=== PATIENT | female | born 1935 | race Caucasian/White ===

== ENCOUNTER 2016-10-25 16:38 | Emergency (ER) | payer MEDICARE, OTHER ==
[~2016-10-25] VITALS: Ht 160 cm; Wt 44.9 kg
--- NOTE | 2016-10-25 17:04 | ED Abdominal Pain ---
General Stated Complaint: ABDOMINAL PAIN Source of Information: Patient History of Present Illness Time Seen By Provider: 16:50 Initial Comments PT ARRIVES VIA POV FROM HOME C/O SUDDEN ONSET OF LEFT MID ABDOMINAL PAIN SOMETIME THIS MORNING OR AFTERNOON FELT FINE WHEN SHE WOKE UP AND ATE BREAKFAST AND WAS FINE. PT ALSO ATE LUNCH. PAIN RADIATES THROUGH TO BACK NO FEVER NO NAUSEA/VOMITING/DIARRHEA. HAD NORMAL BM TODAY. PT LATER ADMITS THAT SHE ALWAYS HAS TO STRAIN VERY HARD TO HAVE A BM, AND DESCRIBES ONGOING CONSTIPATION NO URINARY SYMPTOMS PT HAS HAD PANCREATITIS X 3, PT HAS ALSO HAD COLITIS PT HAD COLON RESECTION 07/2016 FOR OBSTRUCTION/TORSION PCP: DR. MARCIE RECINOS, [place] [facility] Allergies and Home Medications Allergies Coded Allergies: Penicillins (Verified Allergy, Unknown, 10/25/16) Sulfa (Sulfonamide Antibiotics) (Verified Allergy, Unknown, 10/25/16) latex (Verified Allergy, Unknown, 10/25/16) meperidine (Verified Allergy, Unknown, 10/25/16) Review of Systems Constitutional: no symptoms reported Respiratory: No Symptoms Reported Gastrointestinal: See HPI, Abdominal Pain, Denies Constipated, Denies Diarrhea , Denies Difficulty Swallowing, Denies Nausea, Denies Poor Appetite, Denies Poor Fluid Intake, Denies Rectal Bleeding, Denies Vomiting Genitourinary: No Symptoms Reported Musculoskeletal: back pain Skin: no symptoms reported Psychiatric/Neurological: No Symptoms Reported Endocrine: No Symptoms Reported Hematologic/Lymphatic: No Symptoms Reported Past Yjcolih-Lzlxzz-Borwik Hx Patient Social History Alcohol Use: Denies Use Recreational Drug Use: No Smoking Status: Never a Smoker Recent Foreign Travel: No Contact w/Someone Who Travel: No Surgeries HX Surgeries: Yes (BOWEL RESECTION 07/2016; HYST/BSO/APY) Surgeries: Abdominal, Appendectomy, Bowel Surgery, Hysterectomy, Oophorectomy, Tubal Ligation Respiratory Hx Respiratory Disorders: No Cardiovascular Hx Cardiac Disorders: Yes Cardiac Disorders: Chronic Edema/Swelling, Hypertension Neurological Hx 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 Genitourinary Hx Genitourinary Disorders: No Gastrointestinal Hx Gastrointestinal Disorders: Yes Gastrointestinal Disorders: Colitis, Gastroesophageal Reflux, Pancreatitis Musculoskeletal Hx Musculoskeletal Disorders: No Endocrine Hx Endocrine Disorders: Yes Endocrine Disorders: Diabetes, Non-Insulin dep HEENT HX ENT Disorders: No Cancer Hx Cancer: No Psychosocial Hx Psychiatric Problems: No Integumentary HX Skin/Integumentary Disorder: No Blood Transfusions Hx Blood Disorders: No Physical Exam Vital Signs VS - Last 72 Hours, by Label 10/25/16 16:50 Temp 98.0 Pulse 84 Resp 16 B/P (MAP) 193/80 Pulse Ox 98 Capillary Refill : General Appearance: WD/WN, no apparent distress, thin HEENT: PERRL/EOMI, No scleral icterus (R), No scleral icterus (L) Neck: normal inspection Respiratory: normal breath sounds, no respiratory distress, no accessory muscle use Cardiovascular: regular rate, rhythm, no murmur Gastrointestinal: abnormal bowel sounds (DECREASED), No distended, No guarding , No rebound, tenderness (MODERATE LEFT MID ABDOMINAL TENDERNESS), No hernia, No mass Extremities: no calf tenderness, normal capillary refill, pedal edema (1+ BILATERALLY) Back: no CVA tenderness 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, no motor/sensory deficits, alert, oriented x 3 Skin: normal color, warm/dry Progress/Results/Core Measures Results/Orders Lab Results Laboratory Tests Test 10/25/16 17:00 10/25/16 17:30 Range/Units White Blood Count 8.9 4.3-11.0 10^3/uL Red Blood Count 3.78 L 4.35-5.85 10^6/uL Hemoglobin 11.2 L 11.5-16.0 G/DL Hematocrit 35 35-52 % Mean Corpuscular Volume 94 80-99 FL Mean Corpuscular Hemoglobin 30 25-34 PG Mean Corpuscular Hemoglobin Concent 32 32-36 G/DL Red Cell Distribution Width 14.0 10.0-14.5 % Platelet Count 230 130-400 10^3/uL Mean Platelet Volume 11.2 H 7.4-10.4 FL Neutrophils (%) (Auto) 37 L 42-75 % Lymphocytes (%) (Auto) 37 12-44 % Monocytes (%) (Auto) 12 0-12 % Eosinophils (%) (Auto) 14 H 0-10 % Basophils (%) (Auto) 1 0-10 % Neutrophils # (Auto) 3.3 1.8-7.8 X 10^3 Lymphocytes # (Auto) 3.3 1.0-4.0 X 10^3 Monocytes # (Auto) 1.1 H 0.0-1.0 X 10^3 Eosinophils # (Auto) 1.2 H 0.0-0.3 10^3/uL Basophils # (Auto) 0.1 0.0-0.1 10^3/uL Neutrophils % (Manual) 32 % Lymphocytes % (Manual) 35 % Monocytes % (Manual) 12 % Eosinophils % (Manual) 15 % Basophils % (Manual) 1 % Band Neutrophils 1 % Reactive Lymphocytes 4 % Blood Morphology Comment NORMAL Prothrombin Time 14.2 12.2-14.7 SEC INR Comment 1.1 0.8-1.4 Activated Partial Thromboplast Time 27 24-35 SEC Sodium Level 138 135-145 MMOL/L Potassium Level 4.2 3.6-5.0 MMOL/L Chloride Level 103 98-107 MMOL/L Carbon Dioxide Level 24 21-32 MMOL/L Anion Gap 11 5-14 MMOL/L Blood Urea Nitrogen 20 H 7-18 MG/DL Creatinine 0.77 0.60-1.30 MG/DL Estimat Glomerular Filtration Rate > 60 BUN/Creatinine Ratio 26 Glucose Level 148 H 70-105 MG/DL Calcium Level 9.7 8.5-10.1 MG/DL Total Bilirubin 0.2 0.1-1.0 MG/DL Aspartate Amino Transf (AST/SGOT) 19 5-34 U/L Alanine Aminotransferase (ALT/SGPT) 23 0-55 U/L Alkaline Phosphatase 93 40-136 U/L Total Protein 6.9 6.4-8.2 GM/DL Albumin 4.3 3.2-4.5 GM/DL Amylase Level 52 25-125 U/L Lipase 34 8-78 U/L Urine Color YELLOW Urine Clarity CLEAR Urine pH 6.5 5-9 Urine Specific [place] 1.010 L 1.016-1.022 Urine Protein NEGATIVE NEGATIVE Urine Glucose (UA) NEGATIVE NEGATIVE Urine Ketones NEGATIVE NEGATIVE Urine Nitrite NEGATIVE NEGATIVE Urine Bilirubin NEGATIVE NEGATIVE Urine Urobilinogen NORMAL NORMAL MG/DL Urine Leukocyte Esterase 2+ H NEGATIVE Urine RBC (Auto) NEGATIVE NEGATIVE Urine RBC NONE /HPF Urine WBC 0-2 /HPF Urine Squamous Epithelial Cells 0-2 /HPF Urine Crystals NONE /LPF Urine Bacteria NEGATIVE /HPF Urine Casts NONE /LPF Urine Mucus NEGATIVE /LPF Urine Culture Indicated NO My Orders Orders - TRA GONZALES DO Saline Lock/Iv-Start (10/25/16 16:57) Amylase (10/25/16 16:57) Cbc With Automated Diff (10/25/16 16:57) Comprehensive Metabolic Panel (10/25/16 16:57) Lipase (10/25/16 16:57) Protime With Inr (10/25/16 16:57) Partial Thromboplastin Time (10/25/16 16:57) Ua Culture If Indicated (10/25/16 16:57) Manual Differential (10/25/16 17:00) Ct Abdomen/Pelvis W (10/25/16 17:34) Acute Abd Series (10/25/16 17:34) Saline Lock/Iv-Start (10/25/16 17:37) Ns Iv 1000 Ml (Sodium Chloride 0.9%) (10/25/16 17:37) Iohexol Injection (Omnipaque 350 Mg/Ml 1 (10/25/16 17:45) Ns (Ivpb) (Sodium Chloride 0.9% Ivpb Bag (10/25/16 17:45) Medications Given in ED Current Medications Medications Dose Ordered Sig/Pierce Route Start Time Stop Time Status Last Admin Dose Admin Iohexol 100 ml ONCE ONCE IV 10/25/16 17:45 10/25/16 17:52 DC 10/25/16 17:52 100 ML Sodium Chloride 100 ml ONCE ONCE IV 10/25/16 17:45 10/25/16 17:52 DC 10/25/16 17:52 80 ML Sodium Chloride 1,000 ml @ 0 mls/hr Q0M ONCE IV 10/25/16 17:37 10/25/16 17:38 DC 10/25/16 17:45 1,000 MLS/HR Vital Signs/I&O Vital Sign - Last 12Hours 10/25/16 16:50 Temp 98.0 Pulse 84 Resp 16 B/P (MAP) 193/80 Pulse Ox 98 Progress Note : Progress Note PAIN RESOLVED SHORTLY AFTER ARRIVAL UNEVENTFUL ER STAY Diagnostic Imaging Comments CT ABDOMEN/PELVIS--LARGE AMOUNT OF STOOL THROUGHOUT COLON AND SMALL BOWEL. THICKENING OF STOMACH WALL VS UNDERDISTENTION. PER RADIOLOGIST REPORT @ 183 Reviewed: Reviewed by Me Departure Impression Impression: Primary Impression: Constipation Additional Impression: POSSIBLE GASTRITIS Disposition: 01 HOME, SELF-CARE Condition: Improved Departure-Patient Inst. Referrals: NO,LOCAL PHYSICIAN (PCP/Family) Primary Care Physician Patient Instructions: Gastritis (DC), Constipation, Adult (DC) Add. Discharge Instructions: CLEAR LIQUIDS UNTIL YOU HAVE A LARGE BM AND YOUR STOOLS ARE LOOSE--WATER, BROTH , JELLO, GATORADE THEN YOU MAY START A HIGH FIBER DIET INCREASE YOUR DAILY WATER INTAKE TAKE MIRALAX DAILY--START WITH 1 CAPFUL IN 8 OZ WATER, EVERY 4 HOURS UNTIL YOUR STOOLS ARE LOOSE, AND THEN DECREASE TO TWICE A DAY, AND THEN DECREASE TO ONCE A DAY IF STOOLS CONTINUE TO BE LOOSE MAY USE DULCOLAX SUPPOSITORIES AND/ OR FLEET'S ENEMAS FOR BM FOLLOW UP WITH THIS WEEK FOR FURTHER CARE Scripts Ondansetron (Zofran Odt) 4 Mg Tab.rapdis 4 MG PO Q4H for Nausea/Vomiting, #10 TAB Prov: TRA GONZALES DO 10/25/16 Pantoprazole Sodium (Protonix) 40 Mg Tablet.dr 40 MG PO DAILY, #15 TAB Prov: TRA GONZALES DO 10/25/16 Hyoscyamine Sulfate (Levsin-Sl) 0.125 Mg Tab.subl 1-2 TAB SL Q4H for Abdominal Pain, #15 TAB Prov: TRA GONZALES DO 10/25/16 Dicyclomine HCl (Bentyl) 10 Mg Capsule 10 MG PO Q6H Y for ABDOMINAL PAIN, #15 CAP Prov: TRA GONZALES DO 10/25/16 TRA GONZALES DO Oct 25, 2016 17:04
[2016-10-25 17:06] LABS: BASOPHILS # (AUTO) 0.1 10^3/uL (0.0-0.1); BASOPHILS % (AUTO) 1 % (0-10); EOSINOPHILS # (AUTO) 1.2 10^3/uL (0.0-0.3); EOSINOPHILS % (AUTO) 14 % (0-10); LYMPHOCYTES # (AUTO) 3.3 X 10^3 (1.0-4.0); LYMPHOCYTES % (AUTO) 37 % (12-44); MEAN CORPUSCULAR HEMOGLOBIN 30 PG (25-34); MEAN CORPUSCULAR HGB CONC 32 G/DL (32-36); MEAN CORPUSCULAR VOLUME 94 FL (80-99); MEAN PLATELET VOLUME 11.2 FL (7.4-10.4); MONOCYTES # (AUTO) 1.1 X 10^3 (0.0-1.0); MONOCYTES % (AUTO) 12 % (0-12); NEUTROPHILS # (AUTO) 3.3 X 10^3 (1.8-7.8); NEUTROPHILS % (AUTO) 37 % (42-75); PLATELET COUNT 230 10^3/uL (130-400); RED BLOOD COUNT 3.78 10^6/uL (4.35-5.85); WHITE BLOOD COUNT 8.9 10^3/uL (4.3-11.0)
[2016-10-25 17:17] LABS: INR 1.1 (0.8-1.4); PROTHROMBIN TIME PATIENT 14.2 SEC (12.2-14.7)
[2016-10-25 17:20] LABS: BAND NEUTROPHILS 1 %; BASOPHILS % (MANUAL) 1 %; EOSINOPHILS % (MANUAL) 15 %; LYMPHOCYTES % (MANUAL) 35 %; NEUTROPHILS % (MANUAL) 32 %; REACTIVE LYMPHOCYTES 4 %
[2016-10-25 17:27] LABS: ALANINE AMINOTRANSFERASE 23 U/L (0-55); ALBUMIN 4.3 GM/DL (3.2-4.5); AMYLASE 52 U/L (25-125); ANION GAP 11 MMOL/L (5-14); ASPARTATE AMINO TRANSFERASE 19 U/L (5-34); BILIRUBIN,TOTAL 0.2 MG/DL (0.1-1.0); BLOOD UREA NITROGEN 20 MG/DL (7-18); BUN/CREATININE RATIO 26; CALCIUM 9.7 MG/DL (8.5-10.1); CARBON DIOXIDE 24 MMOL/L (21-32); CHLORIDE 103 MMOL/L (98-107); CREATININE SERUM 0.77 MG/DL (0.60-1.30); GFR ESTIMATED > 60; GLUCOSE 148 MG/DL (70-105); LIPASE 34 U/L (8-78); POTASSIUM 4.2 MMOL/L (3.6-5.0); SODIUM 138 MMOL/L (135-145); TOTAL PROTEIN 6.9 GM/DL (6.4-8.2)
[2016-10-25] MEDS ORDERED: NS IV 1000 ML 1,000 ML IV ONE (17:37)
[2016-10-25 17:39] LABS: BILIRUBIN,URINE NEGATIVE (NEGATIVE); KETONES,URINE NEGATIVE (NEGATIVE); LEUKOCYTE ESTERASE ,URINE 2+ (NEGATIVE); NITRITE,URINE NEGATIVE (NEGATIVE); PH,URINE 6.5 (5-9); PROTEIN,URINE NEGATIVE (NEGATIVE); UROBILINOGEN,URINE NORMAL (NORMAL)
[2016-10-25] MEDS ORDERED: NS 100 ML (IVPB) BAG IV ONE (17:45)
[2016-10-25] MEDS ORDERED: IOHEXOL 350 MG/ML 100 ML (OMNIPAQUE 350) VIAL IV ONE (17:45)
[2016-10-25 18:00] LABS: SQUAMOUS EPITHELIAL CELL,UR 0-2 /HPF; WBC,URINE 0-2 /HPF
--- NOTE | 2016-10-25 18:34 | Diagnostic Imaging Report ---
PROCEDURE: CT abdomen and pelvis with contrast. TECHNIQUE: Multiple contiguous axial images were obtained through the abdomen and pelvis after administration of intravenous contrast. INDICATION: Left lower quadrant abdominal pain. COMPARISON: None. FINDINGS: Lung bases are clear. The liver, gallbladder, pancreas, spleen, adrenals, kidneys and collecting systems are unremarkable. Appendectomy. Postoperative changes in the ascending colon. Hysterectomy. There is a large amount of stool throughout the colon and rectum. There may be diffuse circumferential wall thickening of the stomach, which is collapsed, limiting evaluation. Scattered arterial calcifications including a normal caliber abdominal aorta. No free intraperitoneal air or fluid. No lymphadenopathy. No evidence of bowel obstruction. Moderate degenerative changes in the visualized spine. No acute osseous findings. IMPRESSION: 1. Large amount of stool throughout the colon and rectum may represent fecal impaction with constipation. 2. There may be diffuse circumferential wall thickening of the stomach. However, the stomach is collapsed, limiting evaluation. This could be better evaluated with endoscopy. 3. Chronic and incidental findings as above. Dictated by: Dictated on workstation # [id number]
--- NOTE | 2016-10-25 18:38 | Diagnostic Imaging Report ---
EXAM: ACUTE ABD SERIES INDICATION: Left lower quadrant abdominal pain. COMPARISON: CT abdomen and pelvis with IV contrast from earlier today. FINDINGS: Normal heart size and pulmonary vascularity. No focal pulmonary opacity, pleural effusion or pneumothorax. No acute osseous findings. No free intraperitoneal air. Large amount of stool throughout the colon and rectum. Nonobstructive bowel gas pattern. IMPRESSION: Large amount of stool throughout the colon and rectum may represent a degree of constipation. Dictated by: Dictated on workstation # [id number]
[2016-10-25] MEDS ORDERED: HYOS0.1283 SL (18:46)
[2016-10-25] MEDS ORDERED: ONDA4TAB8 PO (18:46)
[2016-10-25] MEDS ORDERED: DICY10CA59 PO (18:46)
[2016-10-25] MEDS ORDERED: PANT40TA2 PO (18:46)
[2016-10-25 19:03] VITALS: BP 107/79
== END 2016-10-25 18:59 | disposition home or self-care (01) ==
LOC: ER 16:41
DX: K59.00 Constipation, unspecified (principal); I10 Essential (primary) hypertension; E11.9 Type 2 diabetes mellitus without complications; K21.9 Gastro-esophageal reflux disease without esophagitis; Z87.19 Personal history of other diseases of the digestive system; Z90.49 Acquired absence of other specified parts of digestive tract; Z90.710 Acquired absence of both cervix and uterus; Z98.51 Tubal ligation status
CPT/HCPCS: 36415; 74022; 74177; 80053; 81000; 82150; 83690; 85007; 85027; 85610; 85730; 96360

== ENCOUNTER 2017-07-19 09:21 | Emergency (ER) | payer MEDICARE, OTHER ==
[~2017-07-19] VITALS: Ht 157.5 cm; Wt 46.3 kg
[~2017-07-19 09:21] MED LIST: DICY10CA59 PO; HYOS0.1283 SL; ONDA4TAB8 PO; PANT40TA2 PO
--- NOTE | 2017-07-19 11:24 | ED Cough/URI ---
General Chief Complaint: Cough/Cold/Flu Symptoms Stated Complaint: CHEST CONGESTION Nursing Triage Note: pt states she has chest congestion and has been coughing up yellow mucous since yesterday. c/o chest pain when coughing. describes mucous as a copious amount. pt c/o dizziness. also states she has fallen several times in the last couple of months but nothing recently Source: patient Exam Limitations: no limitations History of Present Illness Date Seen by Provider: July 19, 2017 Time Seen by Provider: 11:24 Initial Comments A 2-year-old female patient presents to the emergency department complaints of chest congestion and coughing up yellow mucus since yesterday. Also reports rib pain with coughing. Does complain of dizziness with coughing spells. Patient does have a history of dizziness with frequent falls. Has not fallen for approximately [address] Rowe for chronic medical conditions. She was treated 2-3 wks ago for colitis, but states symptoms have resolved. Timing/Duration: constant, yesterday Severity/Quality: productive cough (yellow productive cough) Prior Episodes/Possible Cause: no prior episodes Modifying Factors: Worse With Coughing Allergies and Home Medications Allergies Coded Allergies: Penicillins (Verified Allergy, Unknown, 10/25/16) Sulfa (Sulfonamide Antibiotics) (Verified Allergy, Unknown, 10/25/16) latex (Verified Allergy, Unknown, 10/25/16) meperidine (Verified Allergy, Unknown, 10/25/16) Home Medications Dicyclomine HCl 10 Mg Capsule, 10 MG PO Q6H PRN for ABDOMINAL PAIN Prescribed by: TRA GONZALES on 10/25/161845 Hyoscyamine Sulfate 0.125 Mg Tab.subl, 1-2 TAB SL Q4H Prescribed by: TRA GONZALES on 10/25/161845 Ondansetron 4 Mg Tab.rapdis, 4 MG PO Q4H Prescribed by: TRA GONZALES on 10/25/161845 Pantoprazole Sodium 40 Mg Tablet.dr, 40 MG PO DAILY Prescribed by: TRA GONZALES on 10/25/161845 Patient Home Medication List Home Medication List Reviewed: Yes Review of Systems Constitutional: see HPI; No chills; dizziness (with coughing); No fever; malaise EENTM: nose congestion; No ear pain, No hoarseness, No throat pain, No throat swelling Respiratory: see HPI, cough; No dyspnea on exertion; phlegm; No short of breath , No wheezing; other (rib pain with coughing.) Cardiovascular: No chest pain, No palpitations, No syncope Gastrointestinal: no symptoms reported Genitourinary: no symptoms reported Musculoskeletal: no symptoms reported Skin: no symptoms reported Psychiatric/Neurological: No Symptoms Reported All Other Systems Reviewed Negative Unless Noted: Yes (Negative excepted noted.) Past Hzeychs-Znosev-Zcludc Hx Patient Social History Alcohol Use: Denies Use Recreational Drug Use: No Smoking Status: Never a Smoker Recent Foreign Travel: No Contact w/Someone Who Travel: No Recent Infectious Disease Expo: No Recent Hopitalizations: No Physical Abuse: No Sexual Abuse: No Past Medical History Surgeries: Yes (BOWEL RESECTION 07/2016; HYST/BSO/APY) Abdominal, Appendectomy, Bowel Surgery, Hysterectomy, Oophorectomy, Tubal Ligation Respiratory: No Cardiac: Yes Chronic Edema/Swelling, Hypertension 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 Genitourinary: No Gastrointestinal: Yes Colitis, Gastroesophageal Reflux, Pancreatitis Musculoskeletal: No Endocrine: Yes Diabetes, Non-Insulin dep Cancer: No Psychosocial: No Nursing Suicide Risk Score: 0 Integumentary: No Blood Disorders: No Family Medical History Reviewed Nursing Family Hx No Pertinent Family Hx Physical Exam Vital Signs Vital Signs - First Documented 07/19/17 09:32 Temp 97.6 Pulse 73 Resp 16 B/P (MAP) 198/77 (117) Pulse Ox 99 O2 Delivery Room Air Capillary Refill : Less Than 3 Seconds General Appearance: WD/WN, no apparent distress HEENT: PERRL/EOMI, TMs normal, pharyngeal erythema, other ((+) nasal congestion without sinus tenderness. white, fuzzy coating of the tongue.) Neck: non-tender, supple, normal inspection Respiratory: lungs clear, normal breath sounds, no respiratory distress, no accessory muscle use Cardiovascular: normal peripheral pulses, regular rate, rhythm, no edema, no murmur Gastrointestinal: normal bowel sounds, non tender, soft Extremities: no pedal edema, normal capillary refill Neurologic/Psychiatric: alert, normal mood/affect, oriented x 3 Skin: normal color, warm/dry Progress/Results/Core Measures Suspected Sepsis Recent Fever Within 48 Hours: No Infection Criteria Present: None New/Unexplained Altered Menta: No Sepsis Screen: No Definite Risk SIRS Temperature:97.6 Pulse: 73 Respiratory Rate: 16 Blood Pressure 198 /77 Mean: 117 Results/Orders Vital Signs/I&O 07/19/17 09:32 Temp 97.6 Pulse 73 Resp 16 B/P (MAP) 198/77 (117) Pulse Ox 99 O2 Delivery Room Air Capillary Refill : Less Than 3 Seconds Blood Pressure Mean: 117 Departure Communication (Admissions) Patient seen and evaluated. Plan for discharge to home. Impression Primary Impression: Upper respiratory infection Qualified Codes: J06.9 - Acute upper respiratory infection, unspecified Additional Impression: Thrush, oral Disposition: HOME, SELF-CARE Condition: Improved Departure-Patient Inst. Decision time for Depature: 11:36 Referrals: YESSI ROWE DO (PCP/Family) Primary Care Physician Patient Instructions: Bacterial Upper Respiratory Infection, Adult (DC) Add. Discharge Instructions: All discharge instructions reviewed with patient and/or family. Voiced understanding. Medications as instructed. Tylenol extra strength over-the- counter as directed for pain if needed. Ibuprofen 400-600 mg by mouth every 6- 8 hours as needed for pain. Drink plenty of fluids. Cool humidifier. You may use saline nasal spray and Afrin nasal spray [id number] as needed for nasal congestion. Mucinex [id number] for chest congestion. Follow-up with Dr. Rowe for recheck as an outpatient if no improvement in symptoms. Return to the emergency department for worsened symptoms or any other concerns. Scripts Benzonatate (Benzonatate) 200 Mg Capsule 200 MG PO Q8H PRN for COUGH, #30 CAP 0 Refills Prov: MILAGROS ROBERSON 07/19/17 Azithromycin (Zithromax) 250 Mg Tablet 250 MG PO UD, #6 TAB 0 Refills TAKE 2 TABLETS TODAY, THEN TAKE 1 TABLET DAILY FOR 4 MORE DAYS Prov: MILAGROS ROBERSON 07/19/17 Fluconazole (Diflucan) 100 Mg Tablet 100 MG PO DAILY for 7 Days, #7 TAB 0 Refills Prov: MILAGROS ROBERSON 07/19/17 MILAGROS ROBERSON July 19, 2017 11:24
[2017-07-19] MEDS ORDERED: AZIT250T PO (11:39)
[2017-07-19] MEDS ORDERED: BENZ200C51 PO (11:39)
[2017-07-19] MEDS ORDERED: FLUC100T PO (11:39)
[2017-07-19 11:44] VITALS: BP 171/68
== END 2017-07-19 11:44 | disposition home or self-care (01) ==
LOC: EDUNIT# 09:21 → ER 09:22
DX: J06.9 Acute upper respiratory infection, unspecified (principal); B37.0 Candidal stomatitis; E11.9 Type 2 diabetes mellitus without complications; K21.9 Gastro-esophageal reflux disease without esophagitis; R60.0 Localized edema; I10 Essential (primary) hypertension; Z90.722 Acquired absence of ovaries, bilateral; Z90.710 Acquired absence of both cervix and uterus; Z90.49 Acquired absence of other specified parts of digestive tract; Z98.51 Tubal ligation status; Z87.19 Personal history of other diseases of the digestive system; Z88.0 Allergy status to penicillin; Z88.2 Allergy status to sulfonamides; Z88.6 Allergy status to analgesic agent; Z91.040 Latex allergy status
CPT/HCPCS: 99282

== ENCOUNTER 2017-10-02 15:48 | Emergency (ER) | payer MEDICARE, OTHER ==
[~2017-10-02] VITALS: Ht 157.5 cm; Wt 47.6 kg
[~2017-10-02 15:48] MED LIST changes: +AZIT250T PO; +BENZ200C51 PO; +FLUC100T PO
[2017-10-02 16:31] LABS: BASOPHILS # (AUTO) 0.1 10^3/uL (0.0-0.1); BASOPHILS % (AUTO) 1 % (0-10); EOSINOPHILS % (AUTO) 0 % (0-10); HEMATOCRIT 28 % (35-52); HEMOGLOBIN 8.6 G/DL (11.5-16.0); LYMPHOCYTES # (AUTO) 2.4 X 10^3 (1.0-4.0); LYMPHOCYTES % (AUTO) 20 % (12-44); MEAN CORPUSCULAR HEMOGLOBIN 23 PG (25-34); MEAN CORPUSCULAR HGB CONC 31 G/DL (32-36); MEAN CORPUSCULAR VOLUME 75 FL (80-99); MONOCYTES # (AUTO) 1.3 X 10^3 (0.0-1.0); MONOCYTES % (AUTO) 10 % (0-12); NEUTROPHILS # (AUTO) 8.6 X 10^3 (1.8-7.8); NEUTROPHILS % (AUTO) 69 % (42-75); PLATELET COUNT 299 10^3/uL (130-400); RED BLOOD COUNT 3.67 10^6/uL (4.35-5.85); RED CELL DISTRIBUTION WIDTH 16.7 % (10.0-14.5); WHITE BLOOD COUNT 12.4 10^3/uL (4.3-11.0)
[2017-10-02] MEDS ORDERED: OMEP20CA12 PO (16:38)
[2017-10-02] MEDS ORDERED: ISOS30TA3 (16:38)
[2017-10-02] MEDS ORDERED: METF500T5 (16:38)
[2017-10-02] MEDS ORDERED: APIX2.5T (16:38)
[2017-10-02] MEDS ORDERED: DIGO125T18 (16:38)
[2017-10-02] MEDS ORDERED: BUDE3CAP5 (16:38)
[2017-10-02] MEDS ORDERED: ACYC800T (16:38)
[2017-10-02] MEDS ORDERED: ACAR100T2 (16:38)
[2017-10-02] MEDS ORDERED: ALLO100T (16:38)
[2017-10-02] MEDS ORDERED: NIFE60TA74 (16:38)
[2017-10-02] MEDS ORDERED: GABA-486 (16:38)
[2017-10-02 16:50] LABS: ALANINE AMINOTRANSFERASE 29 U/L (0-55); ALBUMIN 4.8 GM/DL (3.2-4.5); ALKALINE PHOSPHATASE 67 U/L (40-136); BILIRUBIN,TOTAL 0.3 MG/DL (0.1-1.0); BUN/CREATININE RATIO 21; CALCIUM 9.4 MG/DL (8.5-10.1); CARBON DIOXIDE 20 MMOL/L (21-32); CHLORIDE 103 MMOL/L (98-107); CREATINE KINASE 83 U/L (29-168); GFR ESTIMATED > 60; GLUCOSE 175 MG/DL (70-105); MAGNESIUM 1.9 MG/DL (1.8-2.4); POTASSIUM 4.2 MMOL/L (3.6-5.0); SODIUM 136 MMOL/L (135-145); TOTAL PROTEIN 7.4 GM/DL (6.4-8.2)
[2017-10-02 16:57] LABS: FIBRIN DEGRADATION PRODUCTS 0.3 UG/ML (0.00-0.49); INR 1.1 (0.8-1.4)
[2017-10-02 17:10] LABS: CREATINE KINASE MB 2.9 NG/ML (<6.6); MYOGLOBIN SERUM 44.3 NG/ML (10.0-92.0); TSH (THYROID ANALYZER) 2.08 UIU/ML (0.35-4.94)
--- NOTE | 2017-10-02 17:21 | ED General ---
General Chief Complaint: General Problems/Pain Stated Complaint: FEET SWELLING SENT FROM URGENT CARE Nursing Triage Note: PT WAS SENT TO ER BY [facility] WITH COMPLAINT OF BILAT ANKLE/LEG SWELLING. PT STATES SHE HAS HAD THIS FOR SIX WEEKS AND HAS SEEN HER PCP. PT STATES SHE ALSO FEELS SOB AFTER EXEERTION. Nursing Sepsis Screen: No Definite Risk History of Present Illness Date Seen by Provider: Oct 02, 2017 Time Seen by Provider: 17:00 Initial Comments Patient is an 82-year-old female who presents to the emergency room with complaints of bilateral lower extremity swelling and mild shortness of breath with exertion for the past 6 weeks. Denies chest pain, nausea, vomiting, abdominal pain. Timing/Duration: Other (6 weeks) Modifying Factors: improves with Movement Associated Systoms: No Chest Pain, No Fever/Chills, No Headaches, No Loss of Appetite, No Nausea/Vomiting, No Seizure; Shortness of Air; No Syncope, No Weakness Allergies and Home Medications Allergies Coded Allergies: Penicillins (Verified Allergy, Unknown, 10/25/16) Sulfa (Sulfonamide Antibiotics) (Verified Allergy, Unknown, 10/25/16) latex (Verified Allergy, Unknown, 10/25/16) meperidine (Verified Allergy, Unknown, 10/25/16) Home Medications Furosemide 20 Mg Tablet, 20 MG PO DAILY Prescribed by: AIMEE EDMONDSON on 10/02/171811 Patient Home Medication List Home Medication List Reviewed: Yes Review of Systems Constitutional: see HPI; No chills, No diaphoresis, No dizziness, No fever EENTM: see HPI; No blurred vision, No double vision, No eye pain, No tearing Respiratory: see HPI; No cough; dyspnea on exertion; No hemoptysis, No orthopnea, No phlegm; short of breath; No stridor, No wheezing Cardiovascular: see HPI; No chest pain; edema (bilateral lower extremity edema) ; No Hx of Intervention, No palpitations, No syncope, No vascular heart diseas Gastrointestinal: see HPI; No abdominal pain, No constipation, No diarrhea, No dysphagia Genitourinary: see HPI; No decreased output, No discharge, No dysuria, No frequency Musculoskeletal: see HPI; No back pain, No gout, No joint pain, No joint swelling, No muscle pain Skin: see HPI; No change in color, No change in hair/nails, No dryness Psychiatric/Neurological: See HPI; Denies Anxiety, Denies Depressed, Denies Headache Hematologic/Lymphatic: See HPI; Denies Anemia, Denies Blood Clots Immunological/Allergic: see HPI; denies food allergy, denies grass allergy All Other Systems Reviewed Negative Unless Noted: Yes Past Qguhkos-Ptveaj-Jojwmw Hx Past Med/Social Hx: Reviewed Nursing Past Med/Soc Hx Patient Social History Alcohol Use: Denies Use Recreational Drug Use: No Smoking Status: Never a Smoker Recent Foreign Travel: No Contact w/Someone Who Travel: No Recent Infectious Disease Expo: No Recent Hopitalizations: No Immunizations Up To Date Tetanus Booster (TDap): Unknown PED Vaccines UTD: Yes Past Medical History Surgeries: Yes (BOWEL RESECTION 07/2016; HYST/BSO/APY) Abdominal, Appendectomy, Bowel Surgery, Hysterectomy, Oophorectomy, Tubal Ligation Respiratory: No Cardiac: Yes Chronic Edema/Swelling, Hypertension 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 oz. 47.472072nq; BMI Method:Stated General Appearance: No Apparent Distress, WD/WN Eyes: Bilateral Eye Normal Inspection, Bilateral Eye PERRL, Bilateral Eye EOMI HEENT: PERRL/EOMI, TMs Normal, Normal ENT Inspection, Pharynx Normal Neck: Full Range of Motion, Normal Inspection, Non Tender, Supple Respiratory: Chest Non Tender, Lungs Clear, Normal Breath Sounds, No Accessory Muscle Use, No Respiratory Distress Cardiovascular: Regular Rate, Rhythm, No Gallop, No JVD, No Murmur, Normal Peripheral Pulses, Other (bilateral lower extremity pitting edema that extends up to her knees.) Gastrointestinal: Normal Bowel Sounds, No Organomegaly, No Pulsatile Mass, Non Tender, Soft Back: Normal Inspection, No CVA Tenderness, No Vertebral Tenderness Extremity: Normal Capillary Refill, Normal Inspection, Normal Range of Motion, Non Tender, No Calf Tenderness Neurologic/Psychiatric: Alert, Oriented x3, Normal Mood/Affect Skin: Normal Color, Warm/Dry Lymphatic: No Adenopathy Progress/Results/Core Measures Suspected Sepsis Recent Fever Within 48 Hours: No Infection Criteria Present: None New/Unexplained Altered Menta: No Sepsis Screen: No Definite Risk SIRS Temperature:97.0 Pulse: 75 Respiratory Rate: 17 Laboratory Tests 10/02/17 16:23: White Blood Count 12.4H Blood Pressure 153 /59 Mean: 90 Laboratory Tests 10/02/17 16:23: Creatinine 0.80, INR Comment 1.1, Platelet Count 299, Total Bilirubin 0.3 Results/Orders Lab Results Laboratory Tests Test 10/02/17 16:23 Range/Units White Blood Count 12.4 H 4.3-11.0 10^3/uL Red Blood Count 3.67 L 4.35-5.85 10^6/uL Hemoglobin 8.6 L 11.5-16.0 G/DL Hematocrit 28 L 35-52 % Mean Corpuscular Volume 75 L 80-99 FL Mean Corpuscular Hemoglobin 23 L 25-34 PG Mean Corpuscular Hemoglobin Concent 31 L 32-36 G/DL Red Cell Distribution Width 16.7 H 10.0-14.5 % Platelet Count 299 130-400 10^3/uL Mean Platelet Volume 11.0 H 7.4-10.4 FL Neutrophils (%) (Auto) 69 42-75 % Lymphocytes (%) (Auto) 20 12-44 % Monocytes (%) (Auto) 10 0-12 % Eosinophils (%) (Auto) 0 0-10 % Basophils (%) (Auto) 1 0-10 % Neutrophils # (Auto) 8.6 H 1.8-7.8 X 10^3 Lymphocytes # (Auto) 2.4 1.0-4.0 X 10^3 Monocytes # (Auto) 1.3 H 0.0-1.0 X 10^3 Eosinophils # (Auto) 0.0 0.0-0.3 10^3/uL Basophils # (Auto) 0.1 0.0-0.1 10^3/uL Prothrombin Time 14.0 12.2-14.7 SEC INR Comment 1.1 0.8-1.4 Activated Partial Thromboplast Time 25 24-35 SEC D-Dimer 0.30 0.00-0.49 UG/ML Sodium Level 136 135-145 MMOL/L Potassium Level 4.2 3.6-5.0 MMOL/L Chloride Level 103 98-107 MMOL/L Carbon Dioxide Level 20 L 21-32 MMOL/L Anion Gap 13 5-14 MMOL/L Blood Urea Nitrogen 17 7-18 MG/DL Creatinine 0.80 0.60-1.30 MG/DL Estimat Glomerular Filtration Rate > 60 BUN/Creatinine Ratio 21 Glucose Level 175 H 70-105 MG/DL Calcium Level 9.4 8.5-10.1 MG/DL Magnesium Level 1.9 1.8-2.4 MG/DL Total Bilirubin 0.3 0.1-1.0 MG/DL Aspartate Amino Transf (AST/SGOT) 20 5-34 U/L Alanine Aminotransferase (ALT/SGPT) 29 0-55 U/L Alkaline Phosphatase 67 40-136 U/L Total Creatine Kinase 83 29-168 U/L Creatine Kinase MB 2.9 <6.6 NG/ML Myoglobin 44.3 10.0-92.0 NG/ML Troponin I < 0.30 <0.30 NG/ML B-Type Natriuretic Peptide 80.5 <100.0 PG/ML Total Protein 7.4 6.4-8.2 GM/DL Albumin 4.8 H 3.2-4.5 GM/DL TSH [place] Testing 2.08 0.35-4.94 UIU/ML Vital Signs/I&O Capillary Refill : Less Than 3 Seconds Blood Pressure Mean: 90 Progress Note : Time: 17:00 Progress Note I have assumed care from Milagros RANDALL at this time. Patient reports that she is currently being treated for shingles by Dr. Almeida. She also reports a Dr. Almeida has been watching her hemoglobin levels and she's been low for a while. She states that her current hemoglobin level is normal for her. ECG EKG : EKG Time: 16:17 Rate: 65 ECG Comparisson: No Previous ECG Available Comment 2:1 AV Block Diagnostic Imaging Diagonstic Imaging: Xray Plain Films/CT/US/NM/MRI: chest Comments VIA [facility]. [place], [place] NAME: [facility] REC#: [id number] PT STATUS: REG ER : 1935 PHYSICIAN: MILAGROS ROBERSON ADMIT DATE: 10/02/17/ER Draft Date of Exam:10/02/17 CHEST 1 VIEW, AP/PA ONLY INDICATION: Lower extremity swelling. COMPARISON: 10/25/2016. EXAMINATION: Single view of the chest was obtained. FINDINGS: Clear lungs, bilaterally. The heart is normal. There is no pneumothorax. The osseous structures are normal. IMPRESSION: Negative chest. Dictated on workstation # [id number] Dict: 10/02/17 1715 Trans: 10/02/17 1747 [facility] [id number] Interpreted by: FAN SOMMERS Electronically signed by: Departure Impression Primary Impression: Edema of both feet Disposition: 01 HOME, SELF-CARE Condition: Stable/Unchanged Departure-Patient Inst. Decision time for Depature: 18:07 Referrals: ALEIDA ALMEIDA DO (PCP/Family) Primary Care Physician Patient Instructions: Dependent Edema (DC) Add. Discharge Instructions: Take medications as directed. Continue all home medications as previously prescribed. Try to elevate here feet while at rest and is much as possible and wear the compression stockings. Follow up with Dr. Almeida within 1 week for recheck call first thing tomorrow morning for appointment time as I believe that the causing of your swelling is due to your medication nifedipine and could need changing. All discharge instructions reviewed with patient and/or family. Voiced understanding. Scripts Furosemide (Lasix) 20 Mg Tablet 20 MG PO DAILY for 3 Days, #3 TAB Prov: AIMEE EDMONDSON 10/02/17 AIMEE EDMONDSON Oct 02, 2017 17:21
--- NOTE | 2017-10-02 17:47 | Diagnostic Imaging Report ---
INDICATION: Lower extremity swelling. COMPARISON: 10/25/2016. EXAMINATION: Single view of the chest was obtained. FINDINGS: Clear lungs, bilaterally. The heart is normal. There is no pneumothorax. The osseous structures are normal. IMPRESSION: Negative chest. Dictated by: Dictated on workstation # [id number]
[2017-10-02] MEDS ORDERED: FURO-125 PO (18:12)
[2017-10-02 19:08] VITALS: BP 143/66
== END 2017-10-02 19:08 | disposition home or self-care (01) ==
LOC: EDUNIT# 15:48 → ER 15:50
DX: R60.0 Localized edema (principal); K21.9 Gastro-esophageal reflux disease without esophagitis; E11.9 Type 2 diabetes mellitus without complications; Z88.0 Allergy status to penicillin; Z88.2 Allergy status to sulfonamides; Z88.8 Allergy status to other drugs, medicaments and biological substances; Z91.040 Latex allergy status; Z90.49 Acquired absence of other specified parts of digestive tract; Z90.710 Acquired absence of both cervix and uterus; Z98.51 Tubal ligation status; Z87.19 Personal history of other diseases of the digestive system
CPT/HCPCS: 36415; 71045; 80053; 82550; 82553; 83735; 83874; 83880; 84443; 84484; 85025; 85379; 85610; 85730; 93005; 93041

== ENCOUNTER 2017-10-29 07:16 | Emergency (ER) | payer MEDICARE, OTHER ==
[~2017-10-29] VITALS: Ht 157.5 cm; Wt 46.3 kg
[~2017-10-29 07:16] MED LIST changes: +ACAR100T2; +ACYC800T; +ALLO100T; +APIX2.5T; +BUDE3CAP5; +DIGO125T18; +FURO-125 PO; +GABA-486; +ISOS30TA3; +METF500T5; +NIFE60TA74; +OMEP20CA12 PO
--- NOTE | 2017-10-29 08:06 | ED Lower Extremity ---
General Chief Complaint: Lower Extremity Stated Complaint: FELL AT HOME A WEEK AGO/RT LEG/HIP HURTING Nursing Triage Note: pt presents to ed with complaints of fall last week that caused pain to r hip and leg. pt reports she also a few days ago cut her r calf on the shower door. pt reports she was seen by dr almeida a couple days ago and put on doxy and clinda. pt is concerened about the redness and bruising and wants it to be checked out. Nursing Sepsis Screen: No Definite Risk Source: patient Exam Limitations: no limitations History of Present Illness Date Seen by Provider: Oct 29, 2017 Time Seen by Provider: 07:54 Initial Comments This 82-year-old white female presents with bruising and pain of her right leg. The patient fell bruising her right hip 1 week ago and subsequently(a couple days ago) scraped the right leg between her knee and ankle getting out of the shower. The patient has had migrating bruises from her right hip to her ankle. The patient has had redness and swelling over the area that she scraped which is in the midportion of the right leg between the knee and the ankle laterally. The patient saw her primary care physician, Dr. Almeida, and was started on clindamycin and doxycycline. The patient began the medications yesterday and has noted some interval improvement in the redness swelling and pain over the lateral aspect of the right leg. The patient is very concerned that she has blood poisoning and would like to have further definitive evaluation. Past medical history is significant in that the patient has had a history of A. fib, TIAs, and takes digoxin and Eliquis. Furthermore the patient's diabetic and is on metformin and acarbose. Patient is allergic to sulfa and penicillins. Allergies and Home Medications Allergies Coded Allergies: Penicillins (Verified Allergy, Unknown, 10/25/16) Sulfa (Sulfonamide Antibiotics) (Verified Allergy, Unknown, 10/25/16) latex (Verified Allergy, Unknown, 10/25/16) meperidine (Verified Allergy, Unknown, 10/25/16) Home Medications Furosemide 20 Mg Tablet, 20 MG PO DAILY Prescribed by: AIMEE EDMONDSON on 10/02/17 6562 Patient Home Medication List Home Medication List Reviewed: Yes Constitutional: No chills, No fever EENTM: No ear pain Respiratory: No cough Cardiovascular: No palpitations Gastrointestinal: No abdominal pain, No nausea, No vomiting Genitourinary: no symptoms reported : No Musculoskeletal: see HPI; No back pain Skin: see HPI, change in color Psychiatric/Neurological: No Symptoms Reported Past Bgraeqb-Rcwcyt-Vkkkxd Hx Past Med/Social Hx: Reviewed Nursing Past Med/Soc Hx Patient Social History Alcohol Use: Denies Use Recreational Drug Use: No Smoking Status: Never a Smoker Recent Foreign Travel: No Contact w/Someone Who Travel: No Recent Infectious Disease Expo: No Recent Hopitalizations: No Physical Abuse: No Sexual Abuse: No Mistreated: No Fear: No Immunizations Up To Date Tetanus Booster (TDap): Unknown PED Vaccines UTD: Yes Past Medical History Surgeries: Yes (BOWEL RESECTION 07/2016; HYST/BSO/APY) Abdominal, Appendectomy, Bowel Surgery, Hysterectomy, Oophorectomy, Tubal Ligation Respiratory: No Cardiac: Yes Atrial Fibrillation, Chronic Edema/Swelling, High Cholesterol, Hypertension 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 oz. 46.464532wh; BMI Method:Stated General Appearance: WD/WN HEENT: normal ENT inspection Neck: normal inspection Cardiovascular: regular rate, rhythm, other (I did not detect an irregular heartbeat when I auscultated the patient's heart.) Respiratory: chest non-tender, lungs clear, normal breath sounds Gastrointestinal: normal bowel sounds, non tender, soft Back: normal inspection Legs: right leg other (examination of the left hip and left lower extremity was unremarkable. Examination of the right hip and leg demonstrated a small area of contusion without abrasion over the right SI joint with bruising from the hip to the ankle on the right. In addition there was an abrasion noted that was approximately 1 inch in length over the lateral aspect of the midportion of the right leg between the knee and ankle. There was some mild inflammation about the abrasion area suggestive of a cellulitis.) Neurologic/Tendon: normal sensation, normal motor functions Neurologic/Psychiatric: no motor/sensory deficits, alert, normal mood/affect, oriented x 3 Progress/Results/Core Measures Results/Orders Lab Results Laboratory Tests Test 10/29/17 08:00 Range/Units White Blood Count 7.3 4.3-11.0 10^3/uL Red Blood Count 3.45 L 4.35-5.85 10^6/uL Hemoglobin 8.8 L 11.5-16.0 G/DL Hematocrit 29 L 35-52 % Mean Corpuscular Volume 84 80-99 FL Mean Corpuscular Hemoglobin 26 25-34 PG Mean Corpuscular Hemoglobin Concent 30 L 32-36 G/DL Red Cell Distribution Width 29.4 H 10.0-14.5 % Platelet Count 219 130-400 10^3/uL Mean Platelet Volume 11.0 H 7.4-10.4 FL Neutrophils (%) (Auto) 63 42-75 % Lymphocytes (%) (Auto) 24 12-44 % Monocytes (%) (Auto) 12 0-12 % Eosinophils (%) (Auto) 1 0-10 % Basophils (%) (Auto) 0 0-10 % Neutrophils # (Auto) 4.6 1.8-7.8 X 10^3 Lymphocytes # (Auto) 1.7 1.0-4.0 X 10^3 Monocytes # (Auto) 0.8 0.0-1.0 X 10^3 Eosinophils # (Auto) 0.1 0.0-0.3 10^3/uL Basophils # (Auto) 0.0 0.0-0.1 10^3/uL Erythrocyte Sedimentation Rate 29 0-30 MM/HR My Orders Orders - MARC DIANA MD Cbc With Automated Diff (10/29/17 07:52) Erythrocyte Sedimentation Rate (10/29/17 07:52) Us Venous Lower Ext Rt (10/29/17 07:52) Vital Signs/I&O 10/29/17 07:42 Temp 98.2 Pulse 70 Resp 18 B/P (MAP) 158/103 (121) Pulse Ox 98 Blood Pressure Mean: 121 Progress Progress Note : Time: 09:01 Progress Note The patient's CBC and sedimentation rate were unremarkable. The patient's ultrasound of the right lower extremity was similarly benign. The patient was reassured. She was asked to continue until completion with her oral antibiotics. She was asked to follow up closely with Dr. Almeida. I invited her to return in the emergency department if any further problems or questions. I recommend that she remain on her Eliquis. potline monitor demonstrated the patient was in a normal sinus rhythm. Despite the fact that the patient's in a normal sinus rhythm today with her history of 4 previous TIAs it may well be that Dr. Almeida will ultimately decided to keep her on both liquids and the digoxin. Departure Impression Primary Impression: Traumatic ecchymosis of right lower leg Qualified Codes: S80.11XA - Contusion of right lower leg, initial encounter Additional Impression: Cellulitis of right lower extremity Disposition: HOME, SELF-CARE Condition: Unchanged Departure-Patient Inst. Decision time for Depature: 09:03 Referrals: ALEIDA ALMEIDA DO (PCP/Family) Primary Care Physician Patient Instructions: Cellulitis (Skin Infection), Adult (DC) Add. Discharge Instructions: Continue with the medications that you're taking as prescribed. Close follow- up with Dr. Almeida next week. Return if any problems or questions. All discharge instructions reviewed with patient and/or family. Voiced understanding. MARC DIANA MD Oct 29, 2017 08:06
[2017-10-29 08:09] LABS: BASOPHILS % (AUTO) 0 % (0-10); EOSINOPHILS # (AUTO) 0.1 10^3/uL (0.0-0.3); EOSINOPHILS % (AUTO) 1 % (0-10); HEMATOCRIT 29 % (35-52); HEMOGLOBIN 8.8 G/DL (11.5-16.0); LYMPHOCYTES # (AUTO) 1.7 X 10^3 (1.0-4.0); LYMPHOCYTES % (AUTO) 24 % (12-44); MEAN CORPUSCULAR HEMOGLOBIN 26 PG (25-34); MEAN CORPUSCULAR HGB CONC 30 G/DL (32-36); MEAN CORPUSCULAR VOLUME 84 FL (80-99); MONOCYTES # (AUTO) 0.8 X 10^3 (0.0-1.0); MONOCYTES % (AUTO) 12 % (0-12); NEUTROPHILS # (AUTO) 4.6 X 10^3 (1.8-7.8); NEUTROPHILS % (AUTO) 63 % (42-75); PLATELET COUNT 219 10^3/uL (130-400); RED BLOOD COUNT 3.45 10^6/uL (4.35-5.85); RED CELL DISTRIBUTION WIDTH 29.4 % (10.0-14.5); WHITE BLOOD COUNT 7.3 10^3/uL (4.3-11.0)
[2017-10-29 08:45] LABS: ERYTHROCYTE SEDIMENTATION RATE 29 MM/HR (0-30)
--- NOTE | 2017-10-29 08:57 | Diagnostic Imaging Report ---
PROCEDURE: US right lower extremity venous. TECHNIQUE: Multiple real-time grayscale images were obtained over the right lower extremity in various projections. Additional duplex Doppler and color Doppler images were also obtained. INDICATION: Right leg pain. Recent fall. COMPARISON: None FINDINGS: The right common femoral vein, femoral vein, deep femoral vein, and popliteal vein are normal in appearance. These vessels show normal compressibility, color flow and doppler augmentation. The visualized deep calf veins demonstrate no distinct intraluminal thrombus. IMPRESSION: 1. No sonographic evidence of deep venous thrombosis in the right lower extremity. Dictated by: Dictated on workstation # [id number]
[2017-10-29 09:11] VITALS: BP 158/66
== END 2017-10-29 09:11 | disposition home or self-care (01) ==
LOC: EDUNIT# 07:16 → ER 07:17
DX: S80.11XA Contusion of right lower leg, initial encounter (principal); L03.115 Cellulitis of right lower limb; I48.91 Unspecified atrial fibrillation; E11.42 Type 2 diabetes mellitus with diabetic polyneuropathy; E78.00 Pure hypercholesterolemia, unspecified; I10 Essential (primary) hypertension; Z79.84 Long term (current) use of oral hypoglycemic drugs; Z86.73 Personal history of transient ischemic attack (TIA), and cerebral infarction without residual deficits; Z79.01 Long term (current) use of anticoagulants; Z88.0 Allergy status to penicillin; Z88.2 Allergy status to sulfonamides; Z88.8 Allergy status to other drugs, medicaments and biological substances; Z91.040 Latex allergy status; Z90.89 Acquired absence of other organs; Z98.51 Tubal ligation status; Z90.710 Acquired absence of both cervix and uterus; X58.XXXA Exposure to other specified factors, initial encounter
CPT/HCPCS: 36415; 85025; 85652

== ENCOUNTER → 2017-11-22 | Outpatient (CLI) | payer MEDICARE, OTHER ==
[~2017-11-22] MED LIST changes: +METF-397; -METF500T5
--- NOTE | 2017-11-22 14:25 | Diagnostic Imaging Report ---
PROCEDURE: US DOPPLER ABD/COMPLETE INDICATION: Hypertension. TECHNIQUE: Multiple real-time grayscale sonographic images, color and duplex Doppler images were obtained of the urinary system. FINDINGS: The aortic velocity is 95 cm/sec. The RIGHT kidney measures 9.9 x 4.1 x 3.9 cm. Diffuse thinning and increased echogenicity of the renal parenchyma. No hydronephrosis. The right renal artery is visualized in its proximal, mid and distal aspect. The maximum renal artery velocity is in its mid aspect at 165 cm/sec. The maximum renal artery/aortic ratio is 1.7. The LEFT kidney measures 9.5 x 4.0 x 4.8 cm. Diffuse thinning and increased echogenicity of the renal parenchyma. No hydronephrosis. The left renal artery is visualized in its proximal, mid and distal aspect. The maximum renal artery velocity is proximally at 96 cm/sec. The maximum renal artery/aortic ratio is 1.0. Urinary bladder is not imaged. IMPRESSION: 1. Diffuse thinning of the renal parenchyma along with increased echogenicity can be reflective of underlying chronic medical renal disease. 2. No significantly elevated velocity to suggest a focal renal artery stenosis at this time. However, there is somewhat disproportionate increased velocity in the right mid renal artery. (RA/AO ratios > 3.0 may suggest potential hemodynamically significant stenosis.) Dictated by: Dictated on workstation # [id number]
== END ==
LOC: RAD 07:47
PROVIDERS: ATTEND Internal Medicine Cardiovascular Disease
DX: I11.9 Hypertensive heart disease without heart failure (principal); I25.10 Atherosclerotic heart disease of native coronary artery without angina pectoris; I08.3 Combined rheumatic disorders of mitral, aortic and tricuspid valves; I27.20 Pulmonary hypertension, unspecified; E11.9 Type 2 diabetes mellitus without complications; I65.29 Occlusion and stenosis of unspecified carotid artery
CPT/HCPCS: 93306; 93975

== ENCOUNTER 2018-02-05 10:14 | Emergency (ER) | payer MEDICARE ==
[~2018-02-05] VITALS: Ht 157.5 cm; Wt 46.3 kg
--- NOTE | 2018-02-05 10:35 | ED Abdominal Pain ---
General Stated Complaint: ABD/BACK PAIN Source of Information: Patient Exam Limitations: No Limitations History of Present Illness Date Seen by Provider: Feb 05, 2018 Time Seen by Provider: 10:33 Initial Comments To ER per private vehicle with reports of epigastric abdominal pain that radiates through to her back that began earlier this morning. No fevers or chills. No nausea or vomiting. No bowel changes. She has a history of pancreatitis and states that this feels similar. Timing/Duration: 4-6 Hours Severity/Quality: Severe Location: Epigastric Associated Symptoms: Back Pain; No Fever/Chills, No Nausea/Vomiting Allergies and Home Medications Allergies Coded Allergies: Penicillins (Verified Allergy, Unknown, 10/25/16) Sulfa (Sulfonamide Antibiotics) (Verified Allergy, Unknown, 10/25/16) latex (Verified Allergy, Unknown, 10/25/16) meperidine (Verified Allergy, Unknown, 10/25/16) Home Medications Furosemide 20 Mg Tablet, 20 MG PO DAILY Prescribed by: AIMEE EDMONDSON on 10/02/17 1812 Patient Home Medication List Home Medication List Reviewed: Yes Review of Systems Review of Systems Constitutional: see HPI; No chills, No fever; weakness EENTM: No Symptoms Reported Respiratory: No Symptoms Reported Cardiovascular: No Symptoms Reported Gastrointestinal: See HPI, Abdominal Pain; Denies Constipated, Denies Diarrhea , Denies Nausea, Denies Vomiting Genitourinary: No Symptoms Reported Musculoskeletal: no symptoms reported Skin: no symptoms reported Psychiatric/Neurological: No Symptoms Reported Endocrine: No Symptoms Reported Hematologic/Lymphatic: No Symptoms Reported Past Nsbipqd-Uenuwm-Tysrze Hx Patient Social History Recent Foreign Travel: No Contact w/Someone Who Travel: No Recent Hopitalizations: No Immunizations Up To Date Tetanus Booster (TDap): Unknown PED Vaccines UTD: Yes Past Medical History Surgeries: Yes (BOWEL RESECTION 07/2016; HYST/BSO/APY) Abdominal, Appendectomy, Bowel Surgery, Hysterectomy, Oophorectomy, Tubal Ligation Respiratory: No Cardiac: Yes Atrial Fibrillation, Chronic Edema/Swelling, High Cholesterol, Hypertension Neurological: Yes Neuropathy, 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 oz. 46.875158do; BMI Method:Stated General Appearance: WD/WN, no apparent distress HEENT: PERRL/EOMI, normal ENT inspection Respiratory: lungs clear, normal breath sounds, no respiratory distress, no accessory muscle use Cardiovascular: regular rate, rhythm, no murmur, other (she reports a history of atrial fibrillation for which she is on Eliquis but on auscultation her heart rate/rhythm is regular) Gastrointestinal: normal bowel sounds, soft, tenderness Extremities: normal range of motion, non-tender; No pedal edema Neurologic/Psychiatric: no motor/sensory deficits, alert, normal mood/affect, oriented x 3 Skin: normal color, warm/dry Progress/Results/Core Measures Results/Orders Lab Results Laboratory Tests Test 02/05/18 10:28 02/05/18 11:52 Range/Units White Blood Count 11.9 H 4.3-11.0 10^3/uL Red Blood Count 4.33 L 4.35-5.85 10^6/uL Hemoglobin 12.0 11.5-16.0 G/DL Hematocrit 37 35-52 % Mean Corpuscular Volume 85 80-99 FL Mean Corpuscular Hemoglobin 28 25-34 PG Mean Corpuscular Hemoglobin Concent 33 32-36 G/DL Red Cell Distribution Width 15.7 H 10.0-14.5 % Platelet Count 261 130-400 10^3/uL Mean Platelet Volume 11.0 H 7.4-10.4 FL Neutrophils (%) (Auto) 45 42-75 % Lymphocytes (%) (Auto) 31 12-44 % Monocytes (%) (Auto) 11 0-12 % Eosinophils (%) (Auto) 12 H 0-10 % Basophils (%) (Auto) 1 0-10 % Neutrophils # (Auto) 5.3 1.8-7.8 X 10^3 Lymphocytes # (Auto) 3.7 1.0-4.0 X 10^3 Monocytes # (Auto) 1.3 H 0.0-1.0 X 10^3 Eosinophils # (Auto) 1.5 H 0.0-0.3 10^3/uL Basophils # (Auto) 0.1 0.0-0.1 10^3/uL Sodium Level 135 135-145 MMOL/L Potassium Level 4.4 3.6-5.0 MMOL/L Chloride Level 103 98-107 MMOL/L Carbon Dioxide Level 20 L 21-32 MMOL/L Anion Gap 12 5-14 MMOL/L Blood Urea Nitrogen 20 H 7-18 MG/DL Creatinine 0.88 0.60-1.30 MG/DL Estimat Glomerular Filtration Rate > 60 BUN/Creatinine Ratio 23 Glucose Level 185 H 70-105 MG/DL Calcium Level 10.3 H 8.5-10.1 MG/DL Corrected Calcium 10.1 8.5-10.1 MG/DL Total Bilirubin 0.2 0.1-1.0 MG/DL Aspartate Amino Transf (AST/SGOT) 16 5-34 U/L Alanine Aminotransferase (ALT/SGPT) 22 0-55 U/L Alkaline Phosphatase 81 40-136 U/L Troponin I < 0.30 <0.30 NG/ML Total Protein 7.1 6.4-8.2 GM/DL Albumin 4.2 3.2-4.5 GM/DL Lipase 33 8-78 U/L Urine Color YELLOW Urine Clarity CLEAR Urine pH 5 5-9 Urine Specific [place] 1.010 L 1.016-1.022 Urine Protein 1+ H NEGATIVE Urine Glucose (UA) NEGATIVE NEGATIVE Urine Ketones NEGATIVE NEGATIVE Urine Nitrite NEGATIVE NEGATIVE Urine Bilirubin NEGATIVE NEGATIVE Urine Urobilinogen NORMAL NORMAL MG/DL Urine Leukocyte Esterase 1+ H NEGATIVE Urine RBC (Auto) NEGATIVE NEGATIVE Urine RBC NONE /HPF Urine WBC 0-2 /HPF Urine Crystals NONE /LPF Urine Bacteria MODERATE H /HPF Urine Casts NONE /LPF Urine Mucus NEGATIVE /LPF Urine Culture Indicated NO My Orders Orders - STIVEN LAMBERT APRN Cbc With Automated Diff (02/05/18 10:31) Comprehensive Metabolic Panel (02/05/18 10:31) Lipase (02/05/18 10:31) Troponin I (02/05/18 10:31) Iv Heplock-Insert (Order) (02/05/18 10:31) Ct Abdomen/Pelvis W (02/05/18 10:31) Ns Iv 1000 Ml (Sodium Chloride 0.9%) (02/05/18 10:45) Fentanyl Injection (Sublimaze Injection (02/05/18 10:45) Iohexol Injection (Omnipaque 350 Mg/Ml 1 (02/05/18 11:15) Contrast Received (Contrast Received) (02/05/18 11:15) Sodium Chloride Flush (Catheter Flush Sy (02/05/18 11:15) Ns (Ivpb) (Sodium Chloride 0.9%) (02/05/18 11:15) Ekg Tracing (02/05/18 11:11) Medications Given in ED Current Medications Medications Dose Ordered Sig/Pierce Route Start Time Stop Time Status Last Admin Dose Admin Fentanyl Citrate 50 mcg ONCE ONCE IVP 02/05/18 10:45 02/05/18 10:46 DC 02/05/18 10:44 50 MCG Iohexol 100 ml ONCE ONCE IV 02/05/18 11:15 02/05/18 11:16 DC 02/05/18 11:45 60 ML Sodium Chloride 10 ml NEEDED PRN IV 02/05/18 11:15 02/05/18 11:45 10 ML Sodium Chloride 250 ml ONCE ONCE IV 02/05/18 11:15 02/05/18 11:16 DC 02/05/18 11:45 80 ML Vital Signs/I&O 02/05/18 10:24 Temp 97.9 Pulse 90 Resp 18 B/P (MAP) 143/55 (84) Pulse Ox 98 O2 Delivery Room Air Diagnostic Imaging Diagonstic Imaging: CT Comments NAME: JIMBO CASTRO [facility] REC#: [id number] PT STATUS: REG ER : 1935 PHYSICIAN: STIVEN LAMBERT APRN ADMIT DATE: 02/05/18/ER Draft Date of Exam:02/05/18 CT ABDOMEN/PELVIS W PROCEDURE: CT abdomen and pelvis with contrast. TECHNIQUE: Multiple contiguous axial images were obtained through the abdomen and pelvis after administration of intravenous contrast. INDICATION: Abdominal pain radiating posteriorly. COMPARISON: CT abdomen and pelvis performed on 10/25/2016. FINDINGS: Unchanged 3 mm right lower lobe pulmonary nodule (image 1 series 2). There is mild dependent atelectasis in the right lower lobe. The visualized heart is normal in size. The liver, spleen, pancreas, and adrenal glands are normal. The gallbladder is contracted and not well evaluated. No calcified gallstone. No intrahepatic or extrahepatic biliary ductal dilatation. The kidneys enhance symmetrically, without evidence of renal calculus, hydronephrosis, or suspicious mass. The visualized ureters are normal. The stomach is moderately distended with fluid. Postsurgical change is noted in the ascending colon, likely related to prior appendectomy and partial colectomy. No bowel obstruction or inflammatory change in the bowel. A moderate amount of retained stool is noted throughout the colon. No pneumoperitoneum, abdominal free fluid, or loculated collection. No lymphadenopathy. The bladder is normal. The uterus is surgically absent. No adnexal mass or pelvic free fluid. Abdominal wall is unremarkable. There is mild calcified atherosclerotic plaque involving the aorta, without aneurysmal dilatation. No evidence of venous thrombosis. There is mild degenerative change of the spine. There is unchanged mild anterolisthesis of L4 on L5, likely degenerative in nature. No acute osseous abnormality. IMPRESSION: No acute abdominal or pelvic pathology. Moderate amount of retained stool throughout the colon, possibly reflecting constipation. Dictated on workstation # [id number] Dict: 02/05/18 1156 Trans: 02/05/18 1218 CVB [id number] Interpreted by: CRYSTAL CONWAY DO Electronically signed by: Departure Communication (Admissions) 1224-after 1 dose of fentanyl her abdominal pain is completely gone. Labs are unremarkable. CT is unremarkable. 1317-she remains pain-free. She is still shaky but her labs are unremarkable. We will discharged home. She is scheduled for follow-up with Dr. Dr. Almeida tomorrow morning. Impression Primary Impression: abdominal pain Additional Impression: Constipation Disposition: 01 HOME, SELF-CARE Condition: Stable Departure-Patient Inst. Decision time for Depature: 12:24 Referrals: ALEIDA ALMEIDA DO (PCP/Family) Primary Care Physician Patient Instructions: Acute Abdomen (Belly Pain), Adult (DC) Add. Discharge Instructions: 1. Follow-up with Dr. Dr. Almeida to discuss your blood pressure control issues 2. Return to ER for any worsening abdominal pain or other concerns. 3. You do appear to be constipated on the CT scan so you should take 1-2 capful' s of MiraLAX twice daily for the next 2-3 days. Copy Copies To 1: ALEIDA ALMEIDA PETER J DRIER Feb 05, 2018 10:35
[2018-02-05 10:38] LABS: BASOPHILS # (AUTO) 0.1 10^3/uL (0.0-0.1); BASOPHILS % (AUTO) 1 % (0-10); EOSINOPHILS # (AUTO) 1.5 10^3/uL (0.0-0.3); EOSINOPHILS % (AUTO) 12 % (0-10); HEMATOCRIT 37 % (35-52); LYMPHOCYTES # (AUTO) 3.7 X 10^3 (1.0-4.0); LYMPHOCYTES % (AUTO) 31 % (12-44); MEAN CORPUSCULAR HEMOGLOBIN 28 PG (25-34); MEAN CORPUSCULAR HGB CONC 33 G/DL (32-36); MEAN CORPUSCULAR VOLUME 85 FL (80-99); MONOCYTES # (AUTO) 1.3 X 10^3 (0.0-1.0); MONOCYTES % (AUTO) 11 % (0-12); NEUTROPHILS # (AUTO) 5.3 X 10^3 (1.8-7.8); NEUTROPHILS % (AUTO) 45 % (42-75); PLATELET COUNT 261 10^3/uL (130-400); RED BLOOD COUNT 4.33 10^6/uL (4.35-5.85); RED CELL DISTRIBUTION WIDTH 15.7 % (10.0-14.5); WHITE BLOOD COUNT 11.9 10^3/uL (4.3-11.0)
[2018-02-05] MEDS ORDERED: NS IV 1000 ML 1,000 ML IV SCH (10:45)
[2018-02-05] MEDS ORDERED: fentaNYL INJECTION 100 MCG/2 ML AMP IVP ONE (10:45)
[2018-02-05 11:05] LABS: ALANINE AMINOTRANSFERASE 22 U/L (0-55); ALBUMIN 4.2 GM/DL (3.2-4.5); ALKALINE PHOSPHATASE 81 U/L (40-136); BILIRUBIN,TOTAL 0.2 MG/DL (0.1-1.0); BUN/CREATININE RATIO 23; CALCIUM 10.3 MG/DL (8.5-10.1); CARBON DIOXIDE 20 MMOL/L (21-32); CHLORIDE 103 MMOL/L (98-107); CREATININE SERUM 0.88 MG/DL (0.60-1.30); GFR ESTIMATED > 60; GLUCOSE 185 MG/DL (70-105); LIPASE 33 U/L (8-78); POTASSIUM 4.4 MMOL/L (3.6-5.0); SODIUM 135 MMOL/L (135-145); TOTAL PROTEIN 7.1 GM/DL (6.4-8.2)
[2018-02-05] MEDS ORDERED: CATHETER FLUSH 10 ML SYR IV PRN (11:15)
[2018-02-05] MEDS ORDERED: IOHEXOL 350 MG/ML 100 ML (OMNIPAQUE 350) VIAL IV ONE (11:15)
[2018-02-05] MEDS ORDERED: NS 250 ML (IVPB) BAG IV ONE (11:15)
[2018-02-05] MEDS ORDERED: RECEIVED CONTRAST (Hold Metformin) IV SCH (11:15)
--- NOTE | 2018-02-05 12:18 | Diagnostic Imaging Report ---
PROCEDURE: CT abdomen and pelvis with contrast. TECHNIQUE: Multiple contiguous axial images were obtained through the abdomen and pelvis after administration of intravenous contrast. INDICATION: Abdominal pain radiating posteriorly. COMPARISON: CT abdomen and pelvis performed on 10/25/2016. FINDINGS: Unchanged 3 mm right lower lobe pulmonary nodule (image 1 series 2). There is mild dependent atelectasis in the right lower lobe. The visualized heart is normal in size. The liver, spleen, pancreas, and adrenal glands are normal. The gallbladder is contracted and not well evaluated. No calcified gallstone. No intrahepatic or extrahepatic biliary ductal dilatation. The kidneys enhance symmetrically, without evidence of renal calculus, hydronephrosis, or suspicious mass. The visualized ureters are normal. The stomach is moderately distended with fluid. Postsurgical change is noted in the ascending colon, likely related to prior appendectomy and partial colectomy. No bowel obstruction or inflammatory change in the bowel. A moderate amount of retained stool is noted throughout the colon. No pneumoperitoneum, abdominal free fluid, or loculated collection. No lymphadenopathy. The bladder is normal. The uterus is surgically absent. No adnexal mass or pelvic free fluid. Abdominal wall is unremarkable. There is mild calcified atherosclerotic plaque involving the aorta, without aneurysmal dilatation. No evidence of venous thrombosis. There is mild degenerative change of the spine. There is unchanged mild anterolisthesis of L4 on L5, likely degenerative in nature. No acute osseous abnormality. IMPRESSION: No acute abdominal or pelvic pathology. Moderate amount of retained stool throughout the colon, possibly reflecting constipation. Dictated by: Dictated on workstation # [id number]
[2018-02-05 12:20] VITALS: BP 150/53
[2018-02-05 12:21] LABS: BILIRUBIN,URINE NEGATIVE (NEGATIVE); CLARITY,URINE CLEAR; COLOR,URINE YELLOW; GLUCOSE, URINE (UA) NEGATIVE (NEGATIVE); KETONES,URINE NEGATIVE (NEGATIVE); LEUKOCYTE ESTERASE ,URINE 1+ (NEGATIVE); NITRITE,URINE NEGATIVE (NEGATIVE); PH,URINE 5 (5-9); PROTEIN,URINE 1+ (NEGATIVE); UROBILINOGEN,URINE NORMAL (NORMAL)
[2018-02-05 12:49] LABS: BACTERIA,URINE MODERATE /HPF; WBC,URINE 0-2 /HPF
== END 2018-02-05 13:20 | disposition home or self-care (01) ==
LOC: EDUNIT# 10:14 → ER 10:15
DX: K59.00 Constipation, unspecified (principal); I48.91 Unspecified atrial fibrillation; E78.00 Pure hypercholesterolemia, unspecified; I10 Essential (primary) hypertension; E11.40 Type 2 diabetes mellitus with diabetic neuropathy, unspecified; Z87.19 Personal history of other diseases of the digestive system; Z88.0 Allergy status to penicillin; Z88.2 Allergy status to sulfonamides; Z91.040 Latex allergy status; Z88.8 Allergy status to other drugs, medicaments and biological substances; Z90.49 Acquired absence of other specified parts of digestive tract; Z90.710 Acquired absence of both cervix and uterus; Z98.51 Tubal ligation status
CPT/HCPCS: 36415; 74177; 80053; 81000; 83690; 84484; 85025; 93005; 96361; 96374

== ENCOUNTER 2018-03-25 17:46 | Observation (INO) | payer MEDICARE ==
[~2018-03-25] VITALS: Ht 162.6 cm; Wt 46.8 kg
[2018-03-25] VITALS (8 sets, daily range): BP systolic 135–193; BP diastolic 53–78
--- NOTE | 2018-03-25 18:08 | ED Neurological Problem ---
General Stated Complaint: POSS STROKE Source: patient, EMS, old records Exam Limitations: no limitations History of Present Illness Date Seen by Provider: Mar 25, 2018 Time Seen by Provider: 17:45 Initial Comments The patient presents to ER by EMS from home where she was witnessed by family approximately 30 minutes prior with last known well time of 1715 to have some slurred speech difficulty making her point. By time EMS arrived it had passed. [facility] and got on the cot on her own power. She has a history of TIAs with her last one being about 5 years ago. She dispensed time at [facility] doing some workup in the hospital. Recently she and her primary care doctor had been working hard to get her blood pressure under control she says the last few weeks every time she checks in the morning this top number has been above 200. She is on clonidine and lisinopril. She says she has not been missing any doses and has been very regular about taking it. They've been trying different regimens. She does not smoke nor have a history of stroke but she does have a history of TIAs. She has no history of coronary artery disease. Blood sugar is 105 per EMS when they arrived. The patient uses Eliquis routinely for prevention of stroke secondary to atrial fibrillation paroxysmal type. Patient's on 20 mg lisinopril and 0.1 mg clonidine as well as 125 g of digoxin. She no longer takes Lasix, Imdur or nifedipine. Allergies and Home Medications Allergies Coded Allergies: Penicillins (Verified Allergy, Unknown, 10/25/16) Sulfa (Sulfonamide Antibiotics) (Verified Allergy, Unknown, 10/25/16) latex (Verified Allergy, Unknown, 10/25/16) meperidine (Verified Allergy, Unknown, 10/25/16) Home Medications Furosemide 20 Mg Tablet, 20 MG PO DAILY Prescribed by: AIMEE EDMONDSON on 10/02/17 1812 Patient Home Medication List Home Medication List Reviewed: Yes Review of Systems Review of Systems Constitutional: No chills, No fever, No malaise Eyes: Denies Blindness, Denies Drainage Ears, Nose, Mouth, Throat: denies ear pain, denies ear discharge Respiratory: No cough, No dyspnea on exertion Cardiovascular: No chest pain Gastrointestinal: No abdominal pain, No constipation, No nausea Genitourinary: No discharge, No dysuria Musculoskeletal: No back pain, No joint pain Skin: No pruritus, No rash Past Gknyprq-Pfimoc-Ibkupj Hx Patient Social History Alcohol Use: Denies Use Recreational Drug Use: No Smoking Status: Never a Smoker Recent Foreign Travel: No Contact w/Someone Who Travel: No Recent Hopitalizations: No Immunizations Up To Date Tetanus Booster (TDap): Unknown PED Vaccines UTD: Yes Past Medical History Surgeries: Yes (BOWEL RESECTION 07/2016; HYST/BSO/APY) Abdominal, Appendectomy, Bowel Surgery, Hysterectomy, Oophorectomy, Tubal Ligation Respiratory: No Cardiac: Yes Atrial Fibrillation, Chronic Edema/Swelling, High Cholesterol, Hypertension 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 oz. 46.326936ei; BMI Method:Stated General Appearance: WD/WN, no apparent distress HEENT: PERRL/EOMI, normal ENT inspection, TMs normal, pharynx normal Neck: non-tender, full range of motion, supple, normal inspection Respiratory: chest non-tender, lungs clear, normal breath sounds, no respiratory distress, no accessory muscle use Cardiovascular: normal peripheral pulses, regular rate, rhythm, no edema, no gallop, no murmur Peripheral Pulses: 2+ Dorsalis Pedis (R), 2+ Left Dors-Pedis (L), 2+ Radial Pulses (R), 2+ Radial Pulses (L) Gastrointestinal: non tender, soft Extremities: normal range of motion, normal capillary refill 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, no motor/sensory deficits, alert, normal mood/affect, oriented x 3 Crainal Nerves: normal hearing, normal speech, PERRL Coordination/Gait: normal finger to nose, normal gait Motor/Sensory: no motor deficit, no sensory deficit, no pronator drift Skin: normal color, warm/dry Stroke Onset of Symptoms Date of Onset of Symptoms: Mar 25, 2018 Time of Symptom Onset: 17:15 Onset of Symptoms: Yes Symptoms onset unknown: No NIH Stroke Scale Assessment Select: Initial Level of Consciousness: 0=Alert (0), Level of Consciousness- Questions: 0=Answers both month/age (0), LOC Commands: 0=Performs both tasks (0) , Gaze: Normal (0), Visual Caruso: 0=No visual loss (0), Facial Movement ( Facial Paresis): 0=Normal symmetrical mnt (0), Motor Function-Arms Right: 0=No drift (0), Motor Function-Arms Left: 0=No drift (0), Motor Function-Legs Right: 0=No drift (0), Motor Function-Legs Left: 0=No drift (0), Limb Ataxia: 0=Absent (0), Sensory: 0=Normal:no loss (0), Best Language: 0=No aphasia (0), Dysarthria : 0=Normal (0), Extinction & Inattention: 0=No abnormality (0), Total: 0 Stroke Thrombolytic Exclusion Age 18 or Over: Yes Acute intenal hemorrhage: No History of CVA: No Uncontrolled Coagulation Defec: No Intracranial Hemorrhage: No Severe Hypertension: No GI or Bleed: No Subarachnoid Hemorrhage: No Intracranial Neoplasm/Aneurysm: No Oral Anticoagulants: Yes Surgery or Trauma: No Puncture of Non-Compressible V: No Recent CPR: No Diabetic Hemorrhagic Retinopat: No Organ Biopsy: No Recent Obstetric Delivery: No Glucose: No (105) Significant Hepatic Dysfunctio: No NIH Stoke Scale >22: No Bacterial Endocarditis: No Pericarditis: No Improving Symptoms: No Platelets: No TPA Contraindication: Yes (Eliquis) IV - TPa Received IV - TPa Procedure Performed?: No Progress/Results/Core Measures Results/Orders Lab Results Laboratory Tests Test 03/25/18 18:12 Range/Units White Blood Count 7.2 4.3-11.0 10^3/uL Red Blood Count 3.85 L 4.35-5.85 10^6/uL Hemoglobin 11.0 L 11.5-16.0 G/DL Hematocrit 33 L 35-52 % Mean Corpuscular Volume 86 80-99 FL Mean Corpuscular Hemoglobin 29 25-34 PG Mean Corpuscular Hemoglobin Concent 33 32-36 G/DL Red Cell Distribution Width 16.2 H 10.0-14.5 % Platelet Count 223 130-400 10^3/uL Mean Platelet Volume 11.3 H 7.4-10.4 FL Neutrophils (%) (Auto) 41 L 42-75 % Lymphocytes (%) (Auto) 38 12-44 % Monocytes (%) (Auto) 15 H 0-12 % Eosinophils (%) (Auto) 6 0-10 % Basophils (%) (Auto) 1 0-10 % Neutrophils # (Auto) 2.9 1.8-7.8 X 10^3 Lymphocytes # (Auto) 2.7 1.0-4.0 X 10^3 Monocytes # (Auto) 1.1 H 0.0-1.0 X 10^3 Eosinophils # (Auto) 0.4 H 0.0-0.3 10^3/uL Basophils # (Auto) 0.1 0.0-0.1 10^3/uL Prothrombin Time 14.7 12.2-14.7 SEC INR Comment 1.1 0.8-1.4 Activated Partial Thromboplast Time 26 24-35 SEC D-Dimer 0.21 0.00-0.49 UG/ML Sodium Level 131 L 135-145 MMOL/L Potassium Level 4.7 3.6-5.0 MMOL/L Chloride Level 99 98-107 MMOL/L Carbon Dioxide Level 21 21-32 MMOL/L Anion Gap 11 5-14 MMOL/L Blood Urea Nitrogen 17 7-18 MG/DL Creatinine 0.70 0.60-1.30 MG/DL Estimat Glomerular Filtration Rate > 60 BUN/Creatinine Ratio 24 Glucose Level 97 70-105 MG/DL Glucometer 99 70-110 MG/DL Calcium Level 9.3 8.5-10.1 MG/DL Corrected Calcium 9.2 8.5-10.1 MG/DL Total Bilirubin 0.4 0.1-1.0 MG/DL Aspartate Amino Transf (AST/SGOT) 17 5-34 U/L Alanine Aminotransferase (ALT/SGPT) 20 0-55 U/L Alkaline Phosphatase 66 40-136 U/L Total Protein 6.4 6.4-8.2 GM/DL Albumin 4.1 3.2-4.5 GM/DL My Orders Orders - SWAPNA MARMOLEJO Code/Resuscitation (03/25/18 18:01) Cbc With Automated Diff (03/25/18 18:01) Protime With Inr (03/25/18 18:) Partial Thromboplastin Time (03/25/18 18:) Comprehensive Metabolic Panel (03/25/18 18:) Fibrin Degradation Products (03/25/18 18:) Troponin I (03/25/18 18:) Ua Culture If Indicated (03/25/18 18:) Chest 1 View, Ap/Pa Only (03/25/18 18:) Ekg Tracing (03/25/18 18:) Nothing By Mouth (03/26/18 Breakfast) Accucheck Stat ONCE (03/25/18 18:) Saline Lock/Iv-Start (03/25/18 18:) Saline Lock/Iv-Start (03/25/18 18:) Vital Signs Stroke Patient Q15M (03/25/18 18:01) Ct Head Wo-R/O Stroke (03/25/18 18:) O2 (03/25/18 18:01) Intake & Output 06,14,22 (03/25/18 18:01) Monitor-Rhythm Ecg Trace Only (03/25/18 18:01) Dysphagia Screening Tool (03/25/18 18:) Lipid Panel (03/26/18 06:00) Hydralazine Injection (Apresoline Inject (03/25/18 18:30) Digoxin (03/25/18 18:17) Medications Given in ED Current Medications Medications Dose Ordered Sig/Pierce Route Start Time Stop Time Status Last Admin Dose Admin Hydralazine HCl 10 mg ONCE ONCE IV 03/25/18 18:30 03/25/18 18:31 DC 03/25/18 18:26 10 MG Vital Signs/I&O 03/25/18 18:16 Temp 98.3 Pulse 68 Resp 18 B/P (MAP) 209/87 (127) Progress Progress Note : Time: 18:12 Progress Note Initial examination doesn't demonstrate hemorrhagic stroke, heart attack. Sounds like a TIA that has resolved before she got here. Could be hypertensive encephalopathy given her blood pressure was 209/87 upon arrival and about the same for EMS. She is on lisinopril and Eliquis with a heart rate of mid 60s so so using beta blockers may try hydralazine. Blood sugar 99 when she arrived in the ER. Initial ECG Impression Date: Mar 25, 2018 Initial ECG Impression Time: 18:07 Initial ECG Rate: 57 Initial ECG Rhythm: Normal Sinus Initial ECG Intervals: Normal Initial ECG Impression: Normal, Nonspecific Changes Initial ECG Comparisson: Unchanged Comment No ST-T segment elevation or depression. Diagnostic Imaging Diagonstic Imaging: CT (noncontrast) Plain Films/CT/US/NM/MRI: head Comments No intracranial hemorrhage, mass effect, tumor, midline shift or calvarial fracture. [facility] [place] [place] NAME: IRMA CASTROREPLACED BY [facility] REC#: [id number] PT STATUS: REG ER : 1935 PHYSICIAN: SWAPNA MARMOLEJO MD ADMIT DATE: 03/25/18/ER Draft Date of Exam:03/25/18 CT HEAD WO-R/O STROKE PROCEDURE: CT head wo r/o stroke. TECHNIQUE: Multiple contiguous axial images were obtained through the brain without the use of intravenous contrast. INDICATION: Stroke.. COMPARISON: None. FINDINGS: No CT evidence for territorial infarction. Intracranial vascular calcifications. No intracranial hemorrhage, mass effect, hydrocephalus or extra-axial fluid collections. Moderate generalized parenchymal volume loss and leukoaraiosis. No acute osseous findings. The visualized paranasal sinuses and mastoids are clear. IMPRESSION: No acute intracranial CT findings. Dictated on workstation # [id number] Dict: 03/25/18 1828 Trans: 03/25/18 1834 SAYRA [id number] Interpreted by: JENNY GARVIN MD Electronically signed by: Reviewed: Reviewed by Me Diagonstic Imaging: Xray Plain Films/CT/US/NM/MRI: chest (1v) Comments Negative for acute cardiopulmonary processes noted. [facility] [place] NAME: JIMBO CASTRO [facility] REC#: [id number] PT STATUS: REG ER : 1935 PHYSICIAN: SWAPNA MARMOLEJO MD ADMIT DATE: 03/25/18/ER Draft Date of Exam:03/25/18 CHEST 1 VIEW, AP/PA ONLY EXAM: CHEST 1 VIEW, AP/PA ONLY INDICATION: Chest pain. COMPARISON: Chest radiograph 10/02/2017. FINDINGS: Normal heart size and central pulmonary vascularity. No focal pulmonary opacity, pleural effusion or pneumothorax. No acute osseous findings. IMPRESSION: No acute cardiopulmonary findings. Dictated on workstation # [id number] Dict: 03/25/18 1830 Trans: 03/25/18 1835 [facility] [id number] Interpreted by: JENNY GARVIN MD Electronically signed by: Reviewed: Reviewed by Me Consults : Consults Notes Discussed the case with Dr. Linares, PAZ stroke neurologist on-call and she agrees that the thoughts of this is more likely a hypertensive encephalopathy and we should pursue treatment of the hypertension with labetalol or hydralazine of the drug of her choice. She would not recommend further stroke workup and imaging at this time a stone and the fact that the patient's symptoms had resolved before she got here. She would just treat the pressure appropriately. Departure Communication (Admissions) Time/Spoke to Admitting Phy: 18:45 Discussed the case lab imaging findings with Dr. Roblero and she would like cardiac consult for management of blood pressure in the ICU. Time/Spoke to Consulting Phy: 18:50 Discussed case lab imaging findings with Dr. Damon and he recommends Norvasc 10 mg now and in the morning as well as Toprol-XL 100 mg now and in the morning and then started nitroprusside drip in the ICU. Impression Primary Impression: Hypertensive encephalopathy Disposition: 01 HOME, SELF-CARE (ERASED) Condition: Stable Admissions Decision to Admit Reason: Admit from ER (General) Decision to Admit/Date: Mar 25, 2018 Time/Decision to Admit Time: 18:59 Departure-Patient Inst. Referrals: ALEIDA ALMEIDA DO (PCP/Family) Primary Care Physician Copy Copies To 1: ALEIDA ALMEIDA TITUS J Mar 25, 2018 18:08
[2018-03-25 18:22] LABS: BASOPHILS # (AUTO) 0.1 10^3/uL (0.0-0.1); BASOPHILS % (AUTO) 1 % (0-10); EOSINOPHILS # (AUTO) 0.4 10^3/uL (0.0-0.3); EOSINOPHILS % (AUTO) 6 % (0-10); HEMATOCRIT 33 % (35-52); LYMPHOCYTES # (AUTO) 2.7 X 10^3 (1.0-4.0); LYMPHOCYTES % (AUTO) 38 % (12-44); MEAN CORPUSCULAR HEMOGLOBIN 29 PG (25-34); MEAN CORPUSCULAR HGB CONC 33 G/DL (32-36); MEAN CORPUSCULAR VOLUME 86 FL (80-99); MEAN PLATELET VOLUME 11.3 FL (7.4-10.4); MONOCYTES # (AUTO) 1.1 X 10^3 (0.0-1.0); MONOCYTES % (AUTO) 15 % (0-12); NEUTROPHILS # (AUTO) 2.9 X 10^3 (1.8-7.8); NEUTROPHILS % (AUTO) 41 % (42-75); PLATELET COUNT 223 10^3/uL (130-400); RED BLOOD COUNT 3.85 10^6/uL (4.35-5.85); RED CELL DISTRIBUTION WIDTH 16.2 % (10.0-14.5); WHITE BLOOD COUNT 7.2 10^3/uL (4.3-11.0)
[2018-03-25] MEDS ORDERED: hydrALAZINE (APESOLINE) 20 MG/ML VIAL IV ONE (18:30)
--- NOTE | 2018-03-25 18:34 | Diagnostic Imaging Report ---
PROCEDURE: CT head wo r/o stroke. TECHNIQUE: Multiple contiguous axial images were obtained through the brain without the use of intravenous contrast. INDICATION: Stroke.. COMPARISON: None. FINDINGS: No CT evidence for territorial infarction. Intracranial vascular calcifications. No intracranial hemorrhage, mass effect, hydrocephalus or extra-axial fluid collections. Moderate generalized parenchymal volume loss and leukoaraiosis. No acute osseous findings. The visualized paranasal sinuses and mastoids are clear. IMPRESSION: No acute intracranial CT findings. Dictated by: Dictated on workstation # [id number]
[2018-03-25 18:36] LABS: FIBRIN DEGRADATION PRODUCTS 0.21 UG/ML (0.00-0.49); INR 1.1 (0.8-1.4); PROTHROMBIN TIME PATIENT 14.7 SEC (12.2-14.7)
--- NOTE | 2018-03-25 18:36 | Diagnostic Imaging Report ---
EXAM: CHEST 1 VIEW, AP/PA ONLY INDICATION: Chest pain. COMPARISON: Chest radiograph 10/02/2017. FINDINGS: Normal heart size and central pulmonary vascularity. No focal pulmonary opacity, pleural effusion or pneumothorax. No acute osseous findings. IMPRESSION: No acute cardiopulmonary findings. Dictated by: Dictated on workstation # [id number]
[2018-03-25 18:37] LABS: ALANINE AMINOTRANSFERASE 20 U/L (0-55); ALBUMIN 4.1 GM/DL (3.2-4.5); ALKALINE PHOSPHATASE 66 U/L (40-136); BILIRUBIN,TOTAL 0.4 MG/DL (0.1-1.0); BUN/CREATININE RATIO 24; CALCIUM 9.3 MG/DL (8.5-10.1); CARBON DIOXIDE 21 MMOL/L (21-32); CHLORIDE 99 MMOL/L (98-107); GFR ESTIMATED > 60; GLUCOSE 97 MG/DL (70-105); POTASSIUM 4.7 MMOL/L (3.6-5.0); SODIUM 131 MMOL/L (135-145); TOTAL PROTEIN 6.4 GM/DL (6.4-8.2)
[2018-03-25] MEDS ORDERED: NITROPRUSSIDE INJECTION 50 MG in D5W IV SOLUTION (EXCEL) 250 ML IV SCH ×2 (19:00→21:30)
[2018-03-25] MEDS ORDERED: meTOprolol SUCCINATE 100 MG (TOPROL XL) TAB PO ONE (19:00)
[2018-03-25 19:16] LABS: BILIRUBIN,URINE NEGATIVE (NEGATIVE); CLARITY,URINE CLEAR; COLOR,URINE YELLOW; GLUCOSE, URINE (UA) NEGATIVE (NEGATIVE); KETONES,URINE NEGATIVE (NEGATIVE); LEUKOCYTE ESTERASE ,URINE 1+ (NEGATIVE); NITRITE,URINE NEGATIVE (NEGATIVE); PH,URINE 6.5 (5-9); PROTEIN,URINE NEGATIVE (NEGATIVE); UROBILINOGEN,URINE NORMAL (NORMAL)
[2018-03-25 19:24] LABS: BACTERIA,URINE NEGATIVE /HPF; SQUAMOUS EPITHELIAL CELL,UR 0-2 /HPF; WBC,URINE 0-2 /HPF
[2018-03-25] MEDS ORDERED: amLODIPine 5 MG (NORVASC) TAB ONE (19:47)
--- NOTE | 2018-03-25 20:32 | Consultation-Cardiology ---
HPI-Cardiology Cardiology Consultation: Date of Consultation 03/25/18 Time Seen by a Provider: 20:30 Date of Admission Attending Physician Tiffanie Roblero DO Admitting Physician Khris June DO Consulting Physician OUMAR ORTIZ MD, MA, FACP, FAC, [facility] Physician requesting consult: Dr Roblero HPI: Chief Complaint: Reason for consultation: Management of hypertension HPI: 82 yo woman who presented to the ER within an hour of speech impairment and has been evaluated for stroke in the ER. Dr Lauren and Dr Roblero, in phone consultation with the Neuro Svce at [facility], have determined that this not an acute CVA requiring intervention. They have determined this to be hypertensive encephalopathy and have asked us to help with management of blood pressure. Ms Strauss states that bp has been considerably elevated at home. She denies cp or palp or syncope or focal weakness. She feels that her speech has recovered to normal. Review of Systems-Cardiology Review of Systems Constitutional: No tiredness, No weight loss, No weight gain Eyes: No vision change Ears/Nose/Throat: No ear discharge, No nasal drainage, No recent hearing loss Respiratory: As described under HPI Cardiovascular: As described under HPI Gastrointestinal: No diarrhea, No nausea, No vomiting Genitourinary: No dysuria, No hematuria Musculoskeletal: back pain (chronic); No joint pain Skin: No rash, No ulcerations Psychiatric/Neurological: As described under HPI Hematologic: No bleeding abnormalities TGK-Gdiahu-Wukluh Hx Patient Social History Alcohol Use: Denies Use Recreational Drug Use: No Smoking Status: Never a Smoker Recent Foreign Travel: No Recent Infectious Disease Expo: No Hospitalization with Isolation: Denies Immunizations Up To Date Tetanus Booster (TDap): Unknown Past Medical History PMH As described under Assessment. Family Medical History Family Medical History: She has not reported any fam h/o early CAD or SCD Allergies and Home Medications Allergies Coded Allergies: Penicillins (Verified Allergy, Unknown, 10/25/16) Sulfa (Sulfonamide Antibiotics) (Verified Allergy, Unknown, 10/25/16) latex (Verified Allergy, Unknown, 10/25/16) meperidine (Verified Allergy, Unknown, 10/25/16) Home Medications Furosemide 20 Mg Tablet, 20 MG PO DAILY Prescribed by: AIMEE EDMONDSON on 10/02/17 726 Patient Home Medication List Home Medication List Reviewed: Yes Physical Exam-Cardiology Physical Exam Vital Signs/I&O 03/25/18 03/25/18 18:16 20:13 Temp 98.3 Pulse 68 70 Resp 18 16 B/P (MAP) 209/87 (127) 175/78 (110) Pulse Ox 98 Capillary Refill : Less Than 3 Seconds Constitutional: AAO x 3, well-developed, well-nourished HEENT: PERRL, EOMI; No xanthelasmas are seen Neck: carotid pulses are 2 + bilaterally, with good upstrokes Respiratory: No accessory muscle use; lungs clear to auscultation Cardiovascular: regular rate-rhythm, S1 and S2, systolic murmur (soft KASIA at card base) Gastrointestinal: No tender; soft; No guarding, No rebound; audible bowel sounds Extremities: No clubbing, No cyanosis, No significant edema Neurologic/Psychiatric: oriented x 3, grossly intact, power is 5/5 both on sides Skin: No rash on exposed areas, No ulcerations on exposed areas Data Review Labs Laboratory Tests 03/25/18 18:12: White Blood Count 7.2, Red Blood Count 3.85L, Hemoglobin 11.0L, Hematocrit 33L, Mean Corpuscular Volume 86, Mean Corpuscular Hemoglobin 29, Mean Corpuscular Hemoglobin Concent 33, Red Cell Distribution Width 16.2H, Platelet Count 223, Mean Platelet Volume 11.3H, Neutrophils (%) (Auto) 41L, Lymphocytes (%) (Auto) 38, Monocytes (%) (Auto) 15H, Eosinophils (%) (Auto) 6, Basophils (%) (Auto) 1, Neutrophils # (Auto) 2.9, Lymphocytes # (Auto) 2.7, Monocytes # (Auto) 1.1H, Eosinophils # (Auto) 0.4H, Basophils # (Auto) 0.1, Prothrombin Time 14.7, INR Comment 1.1, Activated Partial Thromboplast Time 26, D-Dimer 0.21, Sodium Level 131L, Potassium Level 4.7, Chloride Level 99, Carbon Dioxide Level 21, Anion Gap 11, Blood Urea Nitrogen 17, Creatinine 0.70, Estimat Glomerular Filtration Rate > 60, BUN/Creatinine Ratio 24, Glucose Level 97, Glucometer 99, Calcium Level 9.3, Corrected Calcium 9.2, Total Bilirubin 0.4, Aspartate Amino Transf ( AST/SGOT) 17, Alanine Aminotransferase (ALT/SGPT) 20, Alkaline Phosphatase 66, Troponin I < 0.028, Total Protein 6.4, Albumin 4.1, Digoxin Level 0.78L 03/25/18 19:03: Urine Color YELLOW, Urine Clarity CLEAR, Urine pH 6.5, Urine Specific [place] 1.010L, Urine Protein NEGATIVE, Urine Glucose (UA) NEGATIVE, Urine Ketones NEGATIVE, Urine Nitrite NEGATIVE, Urine Bilirubin NEGATIVE, Urine Urobilinogen NORMAL, Urine Leukocyte Esterase 1+H, Urine RBC (Auto) NEGATIVE, Urine RBC NONE , Urine WBC 0-2, Urine Squamous Epithelial Cells 0-2, Urine Crystals NONE, Urine Bacteria NEGATIVE, Urine Casts NONE, Urine Mucus NEGATIVE, Urine Culture Indicated NO Laboratory Tests 03/25/18 18:12 A/P-Cardiology Assessment/Admission Diagnosis Transient speech impairment. Her hospitalist, Dr Roblero, has determined that this not an acute CVA requiring intervention Severe hypertension with suspected hypertensive encephalopathy Paroxysmal atrial fibrillation, currently in sinus rhythm, maintained on digoxin and Eliquis by Dr Yu History of cardiac catheterization in September 2014 in [facility]: reported as mild coronary artery disease with tortuous coronaries; no significant obstructive disease Hyperlipidemia treated with statins that are managed by Dr Yu Diabetes mellitus, followed and managed by primary care physician 1-39% bilat carotid stenoses, per u/s at Dr Yu's in Oct 2017 Discussion and Recomendations * Treat hypertension with iv nitroprusside while titrating oral meds * Continue apixaban for stroke prophylaxis * Monitor labs Clinical Quality Measures Stroke: Date of last known well: Mar 25, 2018 Time of last known well: 17:15 Symptoms onset unknown: No OUMAR ORTIZ MD FACP FAC CCDS Mar 25, 2018 20:32
[2018-03-25] MEDS ORDERED: ONDANSETRON 4 MG/2 ML (SDV) Z0FRAN IV PRN (21:30)
[2018-03-25] MEDS ORDERED: ACETAMINOPHEN 500 MG TAB (TYLENOL) PO PRN (21:30)
[2018-03-26] VITALS (19 sets, daily range): BP systolic 95–174; BP diastolic 47–84
[2018-03-26 03:44] LABS: BASOPHILS # (AUTO) 0.1 10^3/uL (0.0-0.1); BASOPHILS % (AUTO) 1 % (0-10); EOSINOPHILS # (AUTO) 0.4 10^3/uL (0.0-0.3); EOSINOPHILS % (AUTO) 5 % (0-10); HEMATOCRIT 36 % (35-52); HEMOGLOBIN 11.7 G/DL (11.5-16.0); LYMPHOCYTES # (AUTO) 2.3 X 10^3 (1.0-4.0); LYMPHOCYTES % (AUTO) 27 % (12-44); MEAN CORPUSCULAR HEMOGLOBIN 28 PG (25-34); MEAN CORPUSCULAR HGB CONC 32 G/DL (32-36); MEAN CORPUSCULAR VOLUME 86 FL (80-99); MEAN PLATELET VOLUME 11.6 FL (7.4-10.4); MONOCYTES # (AUTO) 1.1 X 10^3 (0.0-1.0); MONOCYTES % (AUTO) 14 % (0-12); NEUTROPHILS # (AUTO) 4.5 X 10^3 (1.8-7.8); NEUTROPHILS % (AUTO) 54 % (42-75); PLATELET COUNT 222 10^3/uL (130-400); RED BLOOD COUNT 4.21 10^6/uL (4.35-5.85); RED CELL DISTRIBUTION WIDTH 16.2 % (10.0-14.5); WHITE BLOOD COUNT 8.3 10^3/uL (4.3-11.0)
[2018-03-26 04:14] LABS: BUN/CREATININE RATIO 20; CARBON DIOXIDE 21 MMOL/L (21-32); CHLORIDE 99 MMOL/L (98-107); CHOLESTEROL 84 MG/DL (< 200); GFR ESTIMATED > 60; GLUCOSE 107 MG/DL (70-105); HDL CHOLESTEROL 31 MG/DL (40-60); MAGNESIUM 2.1 MG/DL (1.8-2.4); PHOSPHORUS 3.9 MG/DL (2.3-4.7); POTASSIUM 4.4 MMOL/L (3.6-5.0); SODIUM 132 MMOL/L (135-145); TRIGLYCERIDES 190 MG/DL (<150); VLDL CHOLESTEROL 38 MG/DL (5-40)
--- NOTE | 2018-03-26 06:34 | Pulmonary Consultation ---
History of Present Illness History of Present Illness Date of Consultation 03/26/18 06:29 Time Seen by Provider: 06:29 Date of Admission History of Present Illness 82yo with hx of HTN and multiple TIAs in the past presented to ED secondary to MS change and speech impairment. She was found to have HTN emergency and encephalopathy. Speech is now normal. Denies cp or palp or syncope or focal weakness. Cardiology is also consulted. She is currently on a cardene gtt. Allergies and Home Medications Allergies Coded Allergies: Penicillins (Verified Allergy, Unknown, 10/25/16) Sulfa (Sulfonamide Antibiotics) (Verified Allergy, Unknown, 10/25/16) latex (Verified Allergy, Unknown, 10/25/16) meperidine (Verified Allergy, Unknown, 10/25/16) Home Medications Furosemide 20 Mg Tablet, 20 MG PO DAILY Prescribed by: AIMEE EDMONDSON on 10/02/171811 Past [place]-Jqcjzu-Vbeoeg Hx Patient Social History Alcohol Use: Denies Use Recreational Drug Use: No Smoking Status: Never a Smoker Recent Foreign Travel: No Contact w/Someone Who Travel: No Recent Infectious Disease Expo: No Recent Hopitalizations: No Physical Abuse: No Sexual Abuse: No Mistreated: No Fear: No Immunizations Up To Date Tetanus Booster (TDap): Unknown PED Vaccines UTD: Yes Date of Pneumonia Vaccine: Dec 12, 2017 Date of Influenza Vaccine: Dec 12, 2017 Past Medical History Surgeries: Yes (BOWEL RESECTION 07/2016; BSO) Abdominal, Appendectomy, Bowel Surgery, Hysterectomy, Oophorectomy, Tubal Ligation Respiratory: No Cardiac: Yes Atrial Fibrillation, Chronic Edema/Swelling, High Cholesterol, Hypertension 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 0.5oz. 47.524620eb; 17.9 BMI Method:Estimated Exam Exam Vital Signs Date Time Temp Pulse Resp B/P (MAP) Pulse Ox O2 Delivery O2 Flow Rate FiO2 03/26/18 06:00 57 18 154/65 (94) 96 Room Air 03/26/18 05:00 53 13 151/60 (90) 96 Room Air 03/26/18 04:00 54 13 135/57 (83) 97 Room Air 03/26/18 04:00 97 Room Air 03/26/18 03:00 53 13 142/55 (84) 97 Room Air 03/26/18 02:00 55 16 125/53 (77) 97 Room Air 03/26/18 01:00 60 03/26/18 01:00 55 14 125/56 (79) 96 Room Air 03/26/18 00:00 97 Room Air 03/26/18 00:00 52 13 135/52 (79) 96 Room Air 03/25/18 23:00 53 14 135/58 (83) 98 Room Air 03/25/18 22:00 56 17 135/57 (83) 98 Room Air 03/25/18 21:45 55 14 140/53 (82) 98 Room Air 03/25/18 21:30 77 03/25/18 21:15 60 16 169/74 (105) 98 Room Air 03/25/18 21:00 58 14 179/73 (108) 98 Room Air 03/25/18 20:45 68 18 193/71 (111) 99 Room Air 03/25/18 20:35 66 16 175/75 (108) 99 03/25/18 20:32 70 03/25/18 20:30 96.7 68 18 193/71 (111) 99 Room Air 03/25/18 20:20 97 Room Air 03/25/18 20:13 70 16 175/78 (110) 98 03/25/18 18:16 98.3 68 18 209/87 (127) I & O 03/26/18 07:00 Intake Total 200 ml Output Total 500 ml Balance -300 ml Height & Weight Height: 5'4.00" Weight: 104lbs. 0.5oz. 47.171859wl; 17.9 BMI Method:Estimated Capillary Refill: Less Than 3 Seconds Peripheral Pulses: 2+ Dorsalis Pedis (R), 2+ Left Dors-Pedis (L), 2+ Radial Pulses (R), 2+ Radial Pulses (L) Gastrointestinal: non tender, soft Results Lab Laboratory Tests 03/25/18 18:12 03/26/18 03:20 Assessment/Plan Assessment/Plan TIA- now resolved HTN emergency -Currently on nitroprusside gtt - continue to titrate -currently on PO Lopressor, norvasc, clonidine , lisinopril Paroxysmal Afib - currently sinus ROBERTH HEARD DO Mar 26, 2018 06:34
[2018-03-26] MEDS ORDERED: lisINopril 20 MG (PRINIVIL) TABLET PO SCH (09:00)
[2018-03-26] MEDS ORDERED: amLODIPine 5 MG (NORVASC) TAB PO SCH (09:00)
[2018-03-26] MEDS ORDERED: cloNIDine 0.1 MG (CATAPRES) TAB PO SCH (09:00)
[2018-03-26] MEDS: DIGOXIN 0.125 MG (LANOXIN) TAB PO SCH (09:30)
[2018-03-26] MEDS: amLODIPine 10 MG (NORVASC) TAB PO SCH (09:30)
[2018-03-26] MEDS: meTOprolol SUCCINATE 100 MG (TOPROL XL) TAB PO SCH (09:30)
--- NOTE | 2018-03-26 09:35 | Diagnostic Imaging Report ---
EXAMINATION: Portable erect AP chest obtained at 2:30. INDICATION: Hypertension The heart size is within normal limits and stable when compared to 03/25/2018. The lungs remain clear. There is still no sign of failure, pneumonia or a pleural effusion. The mediastinum is not widened. The osseous structures are intact. IMPRESSION: Stable chest. There has been no adverse change since the prior exam. Dictated by: Dictated on workstation # [id number]
--- NOTE | 2018-03-26 10:51 | Progress Note-Cardiology ---
Cardiology SOAP Progress Note Subjective: No cp or palp or syncope or shortness of breath or focal weakness or speech impairment Objective: I&O/Vital Signs 03/25/18 03/26/18 03/26/18 03/26/18 23:00 00:00 00:00 00:00 Temp 96.8 Pulse 53 52 Resp 14 13 B/P (MAP) 135/58 (83) 135/52 (79) Pulse Ox 98 96 97 O2 Delivery Room Air Room Air Room Air 03/26/18 03/26/18 03/26/18 03/26/18 01:00 01:00 02:00 03:00 Pulse 55 60 55 53 Resp 14 16 13 B/P (MAP) 125/56 (79) 125/53 (77) 142/55 (84) Pulse Ox 96 97 97 O2 Delivery Room Air Room Air Room Air 03/26/18 03/26/18 03/26/18 03/26/18 04:00 04:00 04:00 05:00 Temp 96.9 Pulse 54 53 Resp 13 13 B/P (MAP) 135/57 (83) 151/60 (90) Pulse Ox 97 97 96 O2 Delivery Room Air Room Air Room Air 03/26/18 03/26/18 03/26/18 03/26/18 06:00 07:00 07:22 08:00 Pulse 57 58 61 Resp 18 16 B/P (MAP) 154/65 (94) 174/68 (103) Pulse Ox 96 96 97 O2 Delivery Room Air Room Air Room Air 03/26/18 08:00 Pulse 66 Resp 30 B/P (MAP) O2 Delivery Room Air 03/26/18 00:00 Intake Total 100 ml Output Total 300 ml Balance -200 ml Weight (Pounds): 104 Weight (Ounces): 0.5 Weight (Calculated Kilograms): [id number] Constitutional: AAO x 3, well-developed, well-nourished Respiratory: No accessory muscle use; lungs clear to auscultation Cardiovascular: regular rate-rhythm, S1 and S2, systolic murmur (soft KASIA at card base) Gastrointestional: No tender; soft; No guarding, No rebound; audible bowel sounds Extremities: No clubbing, No cyanosis, No significant edema Neurologic/Psychiatric: oriented x 3, grossly intact, power is 5/5 both on sides Skin: No rash on exposed areas, No ulcerations on exposed areas Results/Procedures: Labs Laboratory Tests 03/25/18 18:12: White Blood Count 7.2, Red Blood Count 3.85L, Hemoglobin 11.0L, Hematocrit 33L, Mean Corpuscular Volume 86, Mean Corpuscular Hemoglobin 29, Mean Corpuscular Hemoglobin Concent 33, Red Cell Distribution Width 16.2H, Platelet Count 223, Mean Platelet Volume 11.3H, Neutrophils (%) (Auto) 41L, Lymphocytes (%) (Auto) 38, Monocytes (%) (Auto) 15H, Eosinophils (%) (Auto) 6, Basophils (%) (Auto) 1, Neutrophils # (Auto) 2.9, Lymphocytes # (Auto) 2.7, Monocytes # (Auto) 1.1H, Eosinophils # (Auto) 0.4H, Basophils # (Auto) 0.1, Prothrombin Time 14.7, INR Comment 1.1, Activated Partial Thromboplast Time 26, D-Dimer 0.21, Sodium Level 131L, Potassium Level 4.7, Chloride Level 99, Carbon Dioxide Level 21, Anion Gap 11, Blood Urea Nitrogen 17, Creatinine 0.70, Estimat Glomerular Filtration Rate > 60, BUN/Creatinine Ratio 24, Glucose Level 97, Glucometer 99, Calcium Level 9.3, Corrected Calcium 9.2, Total Bilirubin 0.4, Aspartate Amino Transf ( AST/SGOT) 17, Alanine Aminotransferase (ALT/SGPT) 20, Alkaline Phosphatase 66, Troponin I < 0.028, Total Protein 6.4, Albumin 4.1, Digoxin Level 0.78L 03/25/18 19:03: Urine Color YELLOW, Urine Clarity CLEAR, Urine pH 6.5, Urine Specific [place] 1.010L, Urine Protein NEGATIVE, Urine Glucose (UA) NEGATIVE, Urine Ketones NEGATIVE, Urine Nitrite NEGATIVE, Urine Bilirubin NEGATIVE, Urine Urobilinogen NORMAL, Urine Leukocyte Esterase 1+H, Urine RBC (Auto) NEGATIVE, Urine RBC NONE , Urine WBC 0-2, Urine Squamous Epithelial Cells 0-2, Urine Crystals NONE, Urine Bacteria NEGATIVE, Urine Casts NONE, Urine Mucus NEGATIVE, Urine Culture Indicated NO 03/26/18 03:20: White Blood Count 8.3, Red Blood Count 4.21L, Hemoglobin 11.7, Hematocrit 36, Mean Corpuscular Volume 86, Mean Corpuscular Hemoglobin 28, Mean Corpuscular Hemoglobin Concent 32, Red Cell Distribution Width 16.2H, Platelet Count 222, Mean Platelet Volume 11.6H, Neutrophils (%) (Auto) 54, Lymphocytes (%) (Auto) 27 , Monocytes (%) (Auto) 14H, Eosinophils (%) (Auto) 5, Basophils (%) (Auto) 1, Neutrophils # (Auto) 4.5, Lymphocytes # (Auto) 2.3, Monocytes # (Auto) 1.1H, Eosinophils # (Auto) 0.4H, Basophils # (Auto) 0.1, Sodium Level 132L, Potassium Level 4.4, Chloride Level 99, Carbon Dioxide Level 21, Anion Gap 12, Blood Urea Nitrogen 14, Creatinine 0.70, Estimat Glomerular Filtration Rate > 60, BUN/ Creatinine Ratio 20, Glucose Level 107H, Calcium Level 10.0, Phosphorus Level 3.9, Magnesium Level 2.1, Triglycerides Level 190H, Cholesterol Level 84, LDL Cholesterol Direct 29, VLDL Cholesterol 38, HDL Cholesterol 31L Laboratory Tests 03/25/18 18:12 03/26/18 03:20 A/P: Assessment: Transient speech impairment. Her hospitalist, Dr Roblero, has determined that this not an acute CVA requiring intervention Severe hypertension with suspected hypertensive encephalopathy Paroxysmal atrial fibrillation, currently in sinus rhythm, maintained on digoxin and Eliquis by Dr Yu History of cardiac catheterization in September [address] [facility]: reported as mild coronary artery disease with tortuous coronaries; no significant obstructive disease Hyperlipidemia treated with statins that are managed by Dr Yu Diabetes mellitus, followed and managed by primary care physician 1-39% bilat carotid stenoses, per u/s at Dr Yu's in Oct 2017 Plan: * Treat hypertension amlodipine and metoprolol succinate and doxazosin * Continue dig for vent rate control during A Fib * Continue apixaban for stroke prophylaxis * Monitor labs Clinical Quality Measures Stroke: Date of last known well: Mar 25, 2018 Time of last known well: 17:15 Symptoms onset unknown: OUMAR Chavarria MD FACP FAC CCDS Mar 26, 2018 10:51
[2018-03-26] MEDS ORDERED: doxAzosin 4 MG (CARDURA) TAB PO NR (11:00)
[2018-03-26] MEDS ORDERED: doxAzosin 2 MG (CARDURA) TAB PO NR (11:00)
--- NOTE | 2018-03-26 15:43 | History & Physical-Hospitalist ---
History of Present Illness HPI/Chief Complaint The patient is an 82-year-old white female who was admitted after she presented to the emergency room last evening. She presented with strokelike symptoms. She reports that she has had multiple TIAs going back as long as 10 years ago. She believes that there have been 4 total. She is also had atrial fibrillation for several years. In addition she has had hypertension. After workup in the emergency room and discussion with [facility] stroke team it was concluded that she was not a candidate for TPA as she was improving rapidly. She reports that in the past she had taken calcium channel blockers and does seem to cause her feet to swell. She feels that the the sensation last evening was most about the mouth and specifically the left side of the mouth. This has now resolved completely. She takes Eliquis 2.5 mg twice a day because of atrial fibrillation. Date Seen 03/26/18 Time Seen by a Provider: 15:37 Attending Physician Tiffanie Roblero DO PCP Khris June DO Referring Physician Date of Admission Mar 25, 2018 at 18:45 Home Medications & Allergies Home Medications Reviewed patient Home Medication Reconciliation performed by pharmacy medication reconciliations flight test data acquisition technician and/or nursing. Patients Allergies have been reviewed. Allergies Allergies Coded Allergies Penicillins (Verified Allergy, Unknown, 10/25/16) Sulfa (Sulfonamide Antibiotics) (Verified Allergy, Unknown, 10/25/16) latex (Verified Allergy, Unknown, 10/25/16) meperidine (Verified Allergy, Unknown, 10/25/16) Past Hxeabfi-Uuxogn-Efskbr Hx Past Med/Social Hx: Reviewed Nursing Past Med/Soc Hx Patient Social History Alcohol Use: Denies Use Recreational Drug Use: No Smoking Status: Never a Smoker Physical Abuse Screen: No Sexual Abuse: No Recent Foreign Travel: No Contact w/other who traveled: No Recent Hopitalizations: No Recent Infectious Disease Expo: No Immunizations Up To Date Tetanus Booster (TDap): Unknown Pediatric: Yes Date of Pneumonia Vaccine: Dec 12, 2017 Date of Influenza Vaccine: Dec 12, 2017 Past Medical History Surgeries: Abdominal, Appendectomy, Bowel Surgery, Hysterectomy, Oophorectomy, Tubal Ligation Cardiac: Atrial Fibrillation, Chronic Edema/Swelling, High Cholesterol, Hypertension Neurological: Neuropathy, TIA Hysterectomy Gastrointestinal: Colitis, Gastroesophageal Reflux, Pancreatitis Endocrine: Diabetes, Non-Insulin dep Are Your Blood Sugars Over 250: No History of Blood Disorders: No Adverse Reaction to Blood He: No Family History No Pertinent Family Hx Review of Systems Constitutional: see HPI EENTM: see HPI Respiratory: no symptoms reported Cardiovascular: palpitations Gastrointestinal: no symptoms reported Genitourinary: no symptoms reported Musculoskeletal: no symptoms reported Skin: no symptoms reported Psychiatric/Neurological: No Symptoms Reported Physical Exam Physical Exam Vital Signs Vital Signs - First Documented 03/25/18 03/25/18 03/25/18 18:16 20:13 20:20 Temp 98.3 Pulse 68 Resp 18 B/P (MAP) 209/87 (127) Pulse Ox 98 O2 Delivery Room Air Capillary Refill : Less Than 3 Seconds Height, Weight, BMI Height: 5'4.00" Weight: 104lbs. 0.5oz. [id number]; 17.9 BMI Method:Estimated General Appearance: No Apparent Distress, WD/WN Eyes: Bilateral Eye Normal Inspection HEENT: Normal ENT Inspection Neck: Full Range of Motion, Normal Inspection, Non Tender, Supple, Carotid Bruit Respiratory: Chest Non Tender, Lungs Clear, Normal Breath Sounds, No Accessory Muscle Use, No Respiratory Distress Cardiovascular: Other Gastrointestinal: Normal Bowel Sounds, No Organomegaly, No Pulsatile Mass, Non Tender, Soft Back: Normal Inspection Extremity: Other (there was erythema at the ankles bilaterally without swelling. This appeared consistent with mild venous stasis dermatitis.) Neurologic/Psychiatric: Alert, Oriented x3, No Motor/Sensory Deficits Comments Cranial nerves II through XII were grossly intact. There appeared to be minor effacement of the nasolabial fold on the right, the patient reported that symptoms had been on the left. Speech was normal. Extremities showed the planning lead to be 2+ and equal bilaterally. She was able to straight leg lift bilaterally. Results Results/Procedures Labs Laboratory Tests 03/25/18 18:12 03/26/18 03:20 Patient resulted labs reviewed. Assessment/Plan Admission Diagnosis TIA with left-sided symptoms now resolved. 2.hypertension. 3.atrial fibrillation. Admission Status: Observation Clinical Quality Measures DVT/VTE Risk/Contraindication: Risk Factor Score Per Nursin RFS Level Per Nursing on Admit: 2=Moderate Stroke: Date of last known well: Mar 25, 2018 Time of last known well: 17:15 Symptoms onset unknown: No SONY MCWILLIAMS MD Mar 26, 2018 15:42
--- NOTE | 2018-03-26 17:21 | NUR ---
1700 REPORT GIVEN TO CHIDI FOLEY. PATIENT TRANSFERRED TO [facility], PERSONAL BELONGINGS IN HAND.
[2018-03-26] MEDS: doxAzosin 2 MG (CARDURA) TAB PO SCH (21:15)
[2018-03-26] MEDS ORDERED: diphenhydrAMINE 12.5 MG/5 ML UDC (BENADRYL) PO PRN (22:30)
[2018-03-27 04:02] VITALS: BP 132/65
--- NOTE | 2018-03-27 07:50 | Progress Note (SOAP) ---
Subjective Time Seen by a Provider: 07:47 Subjective/Events-last exam Patient states she's feeling better. Patient's blood pressure last night was good and good this morning. Patient would like to go home today. Objective Exam Vital Signs Date Time Temp Pulse Resp B/P (MAP) Pulse Ox O2 Delivery O2 Flow Rate FiO2 03/27/18 04:02 98.4 60 16 132/65 (87) 96 Room Air 03/26/18 23:58 98.9 61 20 106/54 (71) 97 Room Air 03/26/18 21:00 Room Air 03/26/18 20:00 98.1 65 22 120/53 (75) 97 Room Air 03/26/18 17:00 98.6 65 16 113/56 (75) 99 Room Air 03/26/18 16:00 60 35 98/47 (64) 98 Room Air 03/26/18 15:00 51 11 120/49 (72) 97 Room Air 03/26/18 14:00 53 12 117/51 (73) 97 Room Air 03/26/18 13:20 55 03/26/18 13:00 55 23 116/49 (71) 96 Room Air 03/26/18 12:00 97 Room Air 03/26/18 12:00 55 24 141/62 (88) 97 Room Air 03/26/18 11:00 57 16 134/51 (78) 96 Room Air 03/26/18 10:00 61 30 147/67 (93) 96 Room Air 03/26/18 09:00 65 21 95/84 (88) 96 Room Air 03/26/18 08:00 66 30 Room Air 03/26/18 08:00 97 Room Air I & O 03/27/18 07:00 Intake Total 1000 ml Output Total 200 ml Balance 800 ml Capillary Refill : Less Than 3 Seconds General Appearance: No Apparent Distress, Thin HEENT: Normal ENT Inspection Neck: Normal Inspection Respiratory: Lungs Clear, No Accessory Muscle Use, No Respiratory Distress Cardiovascular: Regular Rate, Rhythm Gastrointestinal: non tender, soft Assessment/Plan Assessment/Plan Assess & Plan/Chief Complaint Malignant hypertension. TIA. Clinical Quality Measures DVT/VTE Risk/Contraindication: Risk Factor Score Per Nursin RFS Level Per Nursing on Admit: 2=Moderate Stroke: Date of last known well: Mar 25, 2018 Time of last known well: 17:15 Symptoms onset unknown: No GELLENDER,ALEIDA A DO Mar 27, 2018 07:50
[2018-03-27 08:00] VITALS: BP 144/65
[2018-03-27] MEDS: DIGOXIN 0.125 MG (LANOXIN) TAB PO SCH (08:40)
[2018-03-27] MEDS: meTOprolol SUCCINATE 100 MG (TOPROL XL) TAB PO SCH (08:40)
[2018-03-27] MEDS: doxAzosin 2 MG (CARDURA) TAB PO SCH (08:40)
[2018-03-27] MEDS: amLODIPine 10 MG (NORVASC) TAB PO SCH (08:40)
[2018-03-27] MEDS ORDERED: METO-395 PO (10:00)
[2018-03-27] MEDS ORDERED: DOXA2TAB2 PO (10:00)
--- NOTE | 2018-03-27 10:03 | Cardiology Progress Note ---
Subjective Date Seen by Provider: Mar 27, 2018 Time Seen by Provider: 10:01 Subjective/Events-last exam patient was seen at bedside, sitting in a chair, asking to go home, denied any chest pain, no slurred speech, reporting for recovery. Review of Systems General: No Chills, No Night Sweats, No Fatigue, No Malaise, No Appetite, No Other HEENT: No Head Aches, No Visual Changes, No Eye Pain, No Ear Pain, No Dysphasia , No Sinus Congestion, No Post Nasal Drip, No Sore Throat, No Other Pulmonary: No Dyspnea, No Cough, No Pleuritic Chest Pain, No Other Cardiovascular: No: Chest Pain, Palpitations, Orthopnea, Paroxysmal Noc. Dyspnea, Edema, Lt Headedness, Other Objective-Cardiology Exam Last Set of Vital Signs Vital Signs 03/27/18 08:00 Temp 98.6 Pulse 59 Resp 20 B/P (MAP) 144/65 (91) Pulse Ox 96 O2 Delivery Room Air Capillary Refill : Less Than 3 Seconds I&O Intake and Output 03/27/18 00:00 Intake Total 1200 ml Output Total 700 ml Balance 500 ml Intake Oral 1200 ml Output Urine Total 700 ml # Voids 4 # Bowel Movements 1 General: Alert, Oriented X3, Cooperative HEENT: Atraumatic, PERRLA Neck: Supple, No JVD, No Thyromegaly Lungs: Clear to Auscultation, Normal Air Movement Heart: Regular Rate, Normal S1, Normal S2, No Murmurs Abdomen: Normal Bowel Sounds, Soft, No Tenderness, No Hepatosplenomegaly, No Masses Extremities: No Clubbing, No Cyanosis, No Edema, Normal Pulses, No Tenderness/ Swelling Skin: No Rashes, No Breakdown, No Significant Lesion Neuro: Normal Gait, Normal Speech, Strength at 5/5 X4 Ext, Normal Tone, Sensation Intact Psych/Mental Status: Mental Status NL, Mood NL A/P-Cardiology Admission Diagnosis TIA Paroxysmal atrial fibrillation Malignant hypertension Hyperlipidemia Assessment/Plan Transient speech impairment, questionable TIA versus hypertensive encephalopathy , has been maintained on Eliquis which will be restarted, blood pressure is better controlled. Okay for discharge from cardiology standpoint Severe hypertension with suspected hypertensive encephalopathy, blood pressure is better controlled. Continue to monitor Paroxysmal atrial fibrillation, currently in sinus rhythm, maintained on digoxin and Eliquis, continue to monitor History of cardiac catheterization in September 2014 in [facility]: reported as mild coronary artery disease with tortuous coronaries; no significant obstructive disease Hyperlipidemia treated with statins, continue to follow Diabetes mellitus, followed and managed by primary care physician Mild bilateral carotid stenosis, last ultrasound was done in October 2017. Continue to monitor Okay for discharge from cardiology standpoint and follow up in 2 weeks. Clinical Quality Measures DVT/VTE Risk/Contraindication: Risk Factor Score Per Nursin RFS Level Per Nursing on Admit: 2=Moderate Stroke: Date of last known well: Mar 25, 2018 Time of last known well: 17:15 Symptoms onset unknown: No ANSELMO TOBAR MD Mar 27, 2018 10:03
--- NOTE | 2018-03-28 07:31 | Discharge Summary ---
Diagnosis/Chief Complaint Date of Admission Mar 25, 2018 at 18:45 Date of Discharge Mar 27, 2018 at 11:30 Discharge Time: 07:28 Discharge Diagnosis Transient ischemic attack. Paroxymal atrial fibrillation. Malignant hypertension. Hyperlipidemia Discharge Summary Consultations Cardiology consult Discharge Physical Examination Allergies: Coded Allergies: Penicillins (Verified Allergy, Unknown, 10/25/16) Sulfa (Sulfonamide Antibiotics) (Verified Allergy, Unknown, 10/25/16) latex (Verified Allergy, Unknown, 10/25/16) meperidine (Verified Allergy, Unknown, 10/25/16) Vitals & I&Os Vital Signs Date Time Temp Pulse Resp B/P (MAP) Pulse Ox O2 Delivery O2 Flow Rate FiO2 03/27/18 11:30 03/27/18 08:00 Room Air 03/27/18 08:00 98.6 59 20 96 Hospital Course Blood pressure under control. Patient felt much better. Patient discharged to home to be followed up in the office Labs (last 24 hrs) Laboratory Tests 03/25/18 18:12: White Blood Count 7.2, Red Blood Count 3.85L, Hemoglobin 11.0L, Hematocrit 33L, Mean Corpuscular Volume 86, Mean Corpuscular Hemoglobin 29, Mean Corpuscular Hemoglobin Concent 33, Red Cell Distribution Width 16.2H, Platelet Count 223, Mean Platelet Volume 11.3H, Neutrophils (%) (Auto) 41L, Lymphocytes (%) (Auto) 38, Monocytes (%) (Auto) 15H, Eosinophils (%) (Auto) 6, Basophils (%) (Auto) 1, Neutrophils # (Auto) 2.9, Lymphocytes # (Auto) 2.7, Monocytes # (Auto) 1.1H, Eosinophils # (Auto) 0.4H, Basophils # (Auto) 0.1, Prothrombin Time 14.7, INR Comment 1.1, Activated Partial Thromboplast Time 26, D-Dimer 0.21, Sodium Level 131L, Potassium Level 4.7, Chloride Level 99, Carbon Dioxide Level 21, Anion Gap 11, Blood Urea Nitrogen 17, Creatinine 0.70, Estimat Glomerular Filtration Rate > 60, BUN/Creatinine Ratio 24, Glucose Level 97, Glucometer 99, Calcium Level 9.3, Corrected Calcium 9.2, Total Bilirubin 0.4, Aspartate Amino Transf ( AST/SGOT) 17, Alanine Aminotransferase (ALT/SGPT) 20, Alkaline Phosphatase 66, Troponin I < 0.028, Total Protein 6.4, Albumin 4.1, Digoxin Level 0.78L 03/25/18 19:03: Urine Color YELLOW, Urine Clarity CLEAR, Urine pH 6.5, Urine Specific [place] 1.010L, Urine Protein NEGATIVE, Urine Glucose (UA) NEGATIVE, Urine Ketones NEGATIVE, Urine Nitrite NEGATIVE, Urine Bilirubin NEGATIVE, Urine Urobilinogen NORMAL, Urine Leukocyte Esterase 1+H, Urine RBC (Auto) NEGATIVE, Urine RBC NONE , Urine WBC 0-2, Urine Squamous Epithelial Cells 0-2, Urine Crystals NONE, Urine Bacteria NEGATIVE, Urine Casts NONE, Urine Mucus NEGATIVE, Urine Culture Indicated NO 03/26/18 03:20: White Blood Count 8.3, Red Blood Count 4.21L, Hemoglobin 11.7, Hematocrit 36, Mean Corpuscular Volume 86, Mean Corpuscular Hemoglobin 28, Mean Corpuscular Hemoglobin Concent 32, Red Cell Distribution Width 16.2H, Platelet Count 222, Mean Platelet Volume 11.6H, Neutrophils (%) (Auto) 54, Lymphocytes (%) (Auto) 27 , Monocytes (%) (Auto) 14H, Eosinophils (%) (Auto) 5, Basophils (%) (Auto) 1, Neutrophils # (Auto) 4.5, Lymphocytes # (Auto) 2.3, Monocytes # (Auto) 1.1H, Eosinophils # (Auto) 0.4H, Basophils # (Auto) 0.1, Sodium Level 132L, Potassium Level 4.4, Chloride Level 99, Carbon Dioxide Level 21, Anion Gap 12, Blood Urea Nitrogen 14, Creatinine 0.70, Estimat Glomerular Filtration Rate > 60, BUN/ Creatinine Ratio 20, Glucose Level 107H, Calcium Level 10.0, Phosphorus Level 3.9, Magnesium Level 2.1, Triglycerides Level 190H, Cholesterol Level 84, LDL Cholesterol Direct 29, VLDL Cholesterol 38, HDL Cholesterol 31L Microbiology 03/25/18 MRSA Screen - Final, Complete MRSA not isolated Laboratory Tests 03/25/18 18:12 03/26/18 03:20 Pending Labs Microbiology Date/Time Source Procedure Growth Status 03/25/18 20:31 Nasal MRSA Screen - Final MRSA not isolated Complete Laboratory Tests 03/25/18 18:12: White Blood Count 7.2, Red Blood Count 3.85, Hemoglobin 11.0, Hematocrit 33, Mean Corpuscular Volume 86, Mean Corpuscular Hemoglobin 29, Mean Corpuscular Hemoglobin Concent 33, Red Cell Distribution Width 16.2, Platelet Count 223, Mean Platelet Volume 11.3, Neutrophils (%) (Auto) 41, Lymphocytes (%) (Auto) 38 , Monocytes (%) (Auto) 15, Eosinophils (%) (Auto) 6, Basophils (%) (Auto) 1, Neutrophils # (Auto) 2.9, Lymphocytes # (Auto) 2.7, Monocytes # (Auto) 1.1, Eosinophils # (Auto) 0.4, Basophils # (Auto) 0.1, Prothrombin Time 14.7, INR Comment 1.1, Activated Partial Thromboplast Time 26, D-Dimer 0.21, Sodium Level 131, Potassium Level 4.7, Chloride Level 99, Carbon Dioxide Level 21, Anion Gap 11, Blood Urea Nitrogen 17, Creatinine 0.70, Estimat Glomerular Filtration Rate > 60, BUN/Creatinine Ratio 24, Glucose Level 97, Glucometer 99, Calcium Level 9.3, Corrected Calcium 9.2, Total Bilirubin 0.4, Aspartate Amino Transf (AST/ SGOT) 17, Alanine Aminotransferase (ALT/SGPT) 20, Alkaline Phosphatase 66, Troponin I < 0.028, Total Protein 6.4, Albumin 4.1, Digoxin Level 0.78 03/25/18 19:03: Urine Color YELLOW, Urine Clarity CLEAR, Urine pH 6.5, Urine Specific [place] 1.010, Urine Protein NEGATIVE, Urine Glucose (UA) NEGATIVE, Urine Ketones NEGATIVE, Urine Nitrite NEGATIVE, Urine Bilirubin NEGATIVE, Urine Urobilinogen NORMAL, Urine Leukocyte Esterase 1+, Urine RBC (Auto) NEGATIVE, Urine RBC NONE, Urine WBC 0-2, Urine Squamous Epithelial Cells 0-2, Urine Crystals NONE, Urine Bacteria NEGATIVE, Urine Casts NONE, Urine Mucus NEGATIVE, Urine Culture Indicated NO 03/26/18 03:20: White Blood Count 8.3, Red Blood Count 4.21, Hemoglobin 11.7, Hematocrit 36, Mean Corpuscular Volume 86, Mean Corpuscular Hemoglobin 28, Mean Corpuscular Hemoglobin Concent 32, Red Cell Distribution Width 16.2, Platelet Count 222, Mean Platelet Volume 11.6, Neutrophils (%) (Auto) 54, Lymphocytes (%) (Auto) 27 , Monocytes (%) (Auto) 14, Eosinophils (%) (Auto) 5, Basophils (%) (Auto) 1, Neutrophils # (Auto) 4.5, Lymphocytes # (Auto) 2.3, Monocytes # (Auto) 1.1, Eosinophils # (Auto) 0.4, Basophils # (Auto) 0.1, Sodium Level 132, Potassium Level 4.4, Chloride Level 99, Carbon Dioxide Level 21, Anion Gap 12, Blood Urea Nitrogen 14, Creatinine 0.70, Estimat Glomerular Filtration Rate > 60, BUN/ Creatinine Ratio 20, Glucose Level 107, Calcium Level 10.0, Phosphorus Level 3.9 , Magnesium Level 2.1, Triglycerides Level 190, Cholesterol Level 84, LDL Cholesterol Direct 29, VLDL Cholesterol 38, HDL Cholesterol 31 Discharge Home Medications: Active Scripts Active Metoprolol Succinate 100 Mg Tab.er.24h 100 Mg PO DAILY Doxazosin Mesylate 2 Mg Tablet 2 Mg PO BID Lasix (Furosemide) 20 Mg Tablet 20 Mg PO DAILY 3 Days Reported Omeprazole 20 Mg Capsule.dr 20 Mg PO Nifedipine ER (Nifedipine) 60 Mg Tablet.er Isosorbide Mononitrate ER (Isosorbide Mononitrate) 30 Mg Tab.er.24h Gabapentin 100 Mg Capsule Allopurinol 100 Mg Tablet Digox (Digoxin) 125 Mcg Tablet Eliquis (Apixaban) 2.5 Mg Tablet Budesonide EC (Budesonide) 3 Mg Capdr...er Metformin HCl 500 Mg Tablet Acarbose 100 Mg Tablet Acyclovir 800 Mg Tablet Instructions to patient/family Please see electronic discharge instructions given to patient. Clinical Quality Measures DVT/VTE Risk/Contraindication: Risk Factor Score Per Nursin RFS Level Per Nursing on Admit: 2=Moderate Stroke: Date of last known well: Mar 25, 2018 Time of last known well: 17:15 Symptoms onset unknown: No ALEIDA ALMEIDA DO Mar 28, 2018 07:31
== END 2018-03-27 11:30 | disposition home or self-care (01) ==
LOC: EDUNIT# 17:46 → ER 17:47 → ICU 18:45 → UNDOADMIN 18:45 → ICU 03-26 16:55 → 4TH 03-26 16:55 → UNDODISIN 03-27 11:30 → 4TH 03-27 11:44
PROVIDERS: ADMIT Internal Medicine; ATTEND Internal Medicine
DX: G45.9 Transient cerebral ischemic attack, unspecified (principal); I16.1 Hypertensive emergency; I10 Essential (primary) hypertension; I48.0 Paroxysmal atrial fibrillation; E78.00 Pure hypercholesterolemia, unspecified; G62.9 Polyneuropathy, unspecified; K21.9 Gastro-esophageal reflux disease without esophagitis; E11.9 Type 2 diabetes mellitus without complications; I25.10 Atherosclerotic heart disease of native coronary artery without angina pectoris; E78.5 Hyperlipidemia, unspecified; I65.23 Occlusion and stenosis of bilateral carotid arteries; R29.700 NIHSS score 0
CPT/HCPCS: 36415; 70450; 71045; 80048; 80053; 80061; 80162; 81000; 82962; 83735; 84100; 84484; 85025; 85379; 85610; 85730; 87081; 93005; 96374; G0378

== ENCOUNTER 2018-04-17 13:00 | Inpatient (IN) | payer MEDICARE ==
[~2018-04-17] VITALS: Ht 162.6 cm; Wt 51.8 kg
[2018-04-17] VITALS (9 sets, daily range): BP systolic 121–189; BP diastolic 44–77
[~2018-04-17 13:00] MED LIST changes: -ACAR100T2; +ACAR100T2 PO; -ALLO100T; +ALLO100T PO; -APIX2.5T; +APIX2.5T PO; +DOXA2TAB2 PO; -ISOS30TA3; +ISOS30TA3 PO; -METF-397; +METF-397 PO; +METO-395 PO; -NIFE60TA74; +NIFE60TA74 PO
[2018-04-17] MEDS ORDERED: TRANEXAMIC ACID 100 MG/ML 10 ML INJECTION IV ONE ×2 (13:04→13:20)
[2018-04-17] MEDS ORDERED: cefTRIAXone 1,000 MG IV (ROCEPHIN) VIAL ONE (13:05)
[2018-04-17] MEDS ORDERED: NS (IVPB) 50 ML ONE ×2 (13:05→13:06)
[2018-04-17] MEDS ORDERED: TETANUS,DIPTH,PERTUSS P/F (BOOSTRIX) 0.5 ML VIAL IM ONE ×2 (13:06→13:10)
[2018-04-17] MEDS ORDERED: TETANUS & DIPHTHERIA TOX,ADULT 0.5 ML (TENIVAC) IM ONE (13:10)
[2018-04-17] MEDS ORDERED: cefTRIAXone FOR IV USE 1,000 MG in NS (IVPB) 50 ML IV ONE (13:10)
[2018-04-17] MEDS ORDERED: ONDANSETRON 4 MG/2 ML (SDV) Z0FRAN IVP ONE (13:10)
[2018-04-17] MEDS ORDERED: TRANEXAMIC ACID INJECTION 1,000 MG in D5W 100 ML IVPB 100 ML IV ONE (13:10)
[2018-04-17] MEDS ORDERED: TRANEXAMIC ACID INJECTION 1,000 MG in NS (IVPB) 250 ML IV SCH (13:10)
[2018-04-17] MEDS ORDERED: ONDANSETRON 4 MG/2 ML (SDV) Z0FRAN ONE ×2 (13:11→14:03)
[2018-04-17] MEDS ORDERED: BUP/EPI 0.5% 1:200,000 (SENSORCAINE) 30 ML VIAL ONE (13:18)
[2018-04-17] MEDS ORDERED: NS (IVPB) 250 ML ONE (13:20)
[2018-04-17 13:22] LABS: HEMOGLOBIN 10.3 G/DL (11.5-16.0); RED CELL DISTRIBUTION WIDTH 17.5 % (10.0-14.5); WHITE BLOOD COUNT 7.9 10^3/uL (4.3-11.0)
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
[2018-04-17] MEDS ORDERED: proPOfol 200 MG/20 ML (DIPRIVAN) VIAL IV ONE (13:24)
[2018-04-17] MEDS ORDERED: LIDOCAINE PF 2% 5 ML (XYLOCAINE) VIAL ONE (13:24)
[2018-04-17 13:32] LABS: FIBRIN DEGRADATION PRODUCTS 0.46 UG/ML (0.00-0.49); INR 1.1 (0.8-1.4); PROTHROMBIN TIME PATIENT 14.4 SEC (12.2-14.7)
[2018-04-17 13:35] LABS: ALANINE AMINOTRANSFERASE 24 U/L (0-55); ALBUMIN 4.1 GM/DL (3.2-4.5); ALKALINE PHOSPHATASE 57 U/L (40-136); BILIRUBIN,DIRECT 0.1 MG/DL (0.0-0.3); BILIRUBIN,INDIRECT 0.2 MG/DL; BILIRUBIN,TOTAL 0.3 MG/DL (0.1-1.0); BUN/CREATININE RATIO 26; CALCIUM 9.2 MG/DL (8.5-10.1); CARBON DIOXIDE 20 MMOL/L (21-32); CHLORIDE 106 MMOL/L (98-107); GFR ESTIMATED > 60; GLUCOSE 129 MG/DL (70-105); MAGNESIUM 1.6 MG/DL (1.8-2.4); PHOSPHORUS 3.4 MG/DL (2.3-4.7); POTASSIUM 4.5 MMOL/L (3.6-5.0); SODIUM 138 MMOL/L (135-145); TOTAL PROTEIN 6.4 GM/DL (6.4-8.2)
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
[2018-04-17 13:42] LABS: BILIRUBIN,URINE NEGATIVE (NEGATIVE); CLARITY,URINE CLEAR; COLOR,URINE YELLOW; GLUCOSE, URINE (UA) NEGATIVE (NEGATIVE); KETONES,URINE NEGATIVE (NEGATIVE); LEUKOCYTE ESTERASE ,URINE NEGATIVE (NEGATIVE); NITRITE,URINE NEGATIVE (NEGATIVE); PH,URINE 6.5 (5-9); PROTEIN,URINE 3+ (NEGATIVE); UROBILINOGEN,URINE NORMAL (NORMAL)
[2018-04-17 13:53] LABS: BACTERIA,URINE NEGATIVE /HPF; RBC,URINE 0-2 /HPF
[2018-04-17 13:57] LABS: AMPHETAMINE SCREEN, URINE NEGATIVE (NEGATIVE); BARBITURATE SCREEN URINE NEGATIVE (NEGATIVE); BENZODIAZEPINES SCREEN URINE NEGATIVE (NEGATIVE); CANNABINOID SCREEN, URINE NEGATIVE (NEGATIVE); COCAINE SCREEN URINE NEGATIVE (NEGATIVE); METHADONE STAT NEGATIVE (NEGATIVE); METHAMPHETAMINE SCREEN URINE S NEGATIVE (NEGATIVE); OPIATE SCREEN URINE NEGATIVE (NEGATIVE); OXYCODONE STAT NEGATIVE (NEGATIVE); PROPOXYPHENE STAT NEGATIVE (NEGATIVE); TRICYCLIC ANTIDEPRESSANTS SCRE NEGATIVE (NEGATIVE)
[2018-04-17] MEDS ORDERED: ATROPINE INJ 0.4 MG/ML SDV ONE (14:03)
[2018-04-17] MEDS ORDERED: GLYCOPYRROLATE 0.2 MG/ML (ROBINUL) 2 ML VIAL ONE (14:03)
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
[2018-04-17] MEDS ORDERED: SEVOFLURANE (ULTANE) 15 ML INHAL SOLN ONE ×2 (14:04→14:16)
[2018-04-17] MEDS ORDERED: NEO/POLY/BAC (NEOSPORIN) OINT 15 GM TUBE ONE (14:22)
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
[2018-04-17] MEDS ORDERED: fentaNYL INJECTION 100 MCG/2 ML AMP IVP PRN (14:30)
[2018-04-17] MEDS ORDERED: ONDANSETRON 4 MG/2 ML (SDV) Z0FRAN IVP PRN (14:30)
[2018-04-17] MEDS ORDERED: SUCCINYLCHOLINE INJ 100 MG/5 ML SYR ONE (14:45)
[2018-04-17] MEDS ORDERED: PROMETHAZINE INJ 25 MG/ML (PHENERGAN) AMP IVP ONE (15:00)
[2018-04-17] MEDS ORDERED: morphine INJ 10 MG/ML 1ML (SYR OR VIAL) IVP ONE (15:00)
[2018-04-17] MEDS ORDERED: ENALAPRIL 2.5 MG (VASOTEC) TAB PO NR (16:15)
[2018-04-17] MEDS ORDERED: ENALAPRILAT 2.5 MG/2 ML (VASOTEC) VIAL IV PRN (17:30)
[2018-04-17] MEDS: NIFEdipine ER 60 MG (PROCARDIA XL) TAB PO SCH (18:01)
[2018-04-17] MEDS: HYDROcodone/APAP 5 MG/325 MG (LORTAB) TAB PO PRN (21:08)
[2018-04-17] MEDS: inSUlin ASPART (NovoLOG) 1 UNIT/0.01 ML (CHARGE PER UNIT) SC SCH (21:10)
[2018-04-18] VITALS (16 sets, daily range): BP systolic 91–119; BP diastolic 34–58
[2018-04-18 03:34] LABS: BASOPHILS % (AUTO) 0 % (0-10); EOSINOPHILS # (AUTO) 0.1 10^3/uL (0.0-0.3); EOSINOPHILS % (AUTO) 1 % (0-10); HEMATOCRIT 29 % (35-52); HEMOGLOBIN 9.2 G/DL (11.5-16.0); LYMPHOCYTES # (AUTO) 2.2 X 10^3 (1.0-4.0); LYMPHOCYTES % (AUTO) 22 % (12-44); MEAN CORPUSCULAR HGB CONC 32 G/DL (32-36); MEAN CORPUSCULAR VOLUME 88 FL (80-99); MEAN PLATELET VOLUME 11.6 FL (7.4-10.4); MONOCYTES # (AUTO) 1.3 X 10^3 (0.0-1.0); MONOCYTES % (AUTO) 13 % (0-12); NEUTROPHILS # (AUTO) 6.2 X 10^3 (1.8-7.8); NEUTROPHILS % (AUTO) 63 % (42-75); PLATELET COUNT 168 10^3/uL (130-400); RED CELL DISTRIBUTION WIDTH 17.7 % (10.0-14.5); WHITE BLOOD COUNT 9.8 10^3/uL (4.3-11.0)
[2018-04-18 03:35] LABS: MEAN CORPUSCULAR HEMOGLOBIN 28 PG (25-34)
[2018-04-18 03:52] LABS: ALANINE AMINOTRANSFERASE 22 U/L (0-55); ALBUMIN 3.5 GM/DL (3.2-4.5); ALKALINE PHOSPHATASE 47 U/L (40-136); BILIRUBIN,TOTAL 0.5 MG/DL (0.1-1.0); BUN/CREATININE RATIO 22; CALCIUM 8.4 MG/DL (8.5-10.1); CARBON DIOXIDE 20 MMOL/L (21-32); CHLORIDE 101 MMOL/L (98-107); CREATININE SERUM 0.74 MG/DL (0.60-1.30); GFR ESTIMATED > 60; GLUCOSE 136 MG/DL (70-105); MAGNESIUM 1.5 MG/DL (1.8-2.4); PHOSPHORUS 3.3 MG/DL (2.3-4.7); POTASSIUM 4.5 MMOL/L (3.6-5.0); SODIUM 132 MMOL/L (135-145); TOTAL PROTEIN 5.6 GM/DL (6.4-8.2)
[2018-04-18] MEDS ORDERED: LACTATED RINGERS 1,000 ML IV ONE ×2 (04:15→05:00)
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
[2018-04-18] MEDS ORDERED: MAGNESIUM 1 GM/100 ML IVPB 100 ML IV SCH (06:00)
[2018-04-18] MEDS ORDERED: POTASSIUM CL 10MEQ/50ML IVPB 50 ML IV SCH (06:00)
[2018-04-18] MEDS ORDERED: KCL 20 MEQ TAB (K-DUR) PO SCH (06:00)
[2018-04-18] MEDS: inSUlin ASPART (NovoLOG) 1 UNIT/0.01 ML (CHARGE PER UNIT) SC SCH ×4 (06:57→21:02)
[2018-04-18] MEDS ORDERED: LACTATED RINGERS 1,000 ML IV SCH (07:30)
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
[2018-04-18] MEDS: HYDROcodone/APAP 5 MG/325 MG (LORTAB) TAB PO PRN ×3 (08:08→21:31)
[2018-04-18] MEDS: NIFEdipine ER 60 MG (PROCARDIA XL) TAB PO SCH (08:09)
[2018-04-18] MEDS: MAGNESIUM 1 GM/100 ML IVPB 100 ML IV SCH ×2 (08:17→09:27)
--- NOTE | 2018-04-18 08:19 | NUR ---
Dr. Cotton called et asked about labs ordered this AM. Stated he does not want fluids going. Fluids DC'd at this time. Dr. Cotton states to change abd wound BID with xeroform. States he will be here around 12:00 to see pt
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
[2018-04-18] MEDS ORDERED: METO-395 PO (10:26)
[2018-04-18] MEDS ORDERED: OMEP20TA33 PO (10:26)
[2018-04-18] MEDS ORDERED: DIGO125T PO (10:26)
[2018-04-18] MEDS ORDERED: DOXA2TAB2 PO (10:26)
[2018-04-18] MEDS ORDERED: ATOR40TA70 PO (10:26)
[2018-04-18] MEDS ORDERED: LISI-552 PO (10:26)
[2018-04-18] MEDS ORDERED: LISI10TA2 PO (10:26)
[2018-04-18] MEDS ORDERED: MAGN250T13 PO (10:27)
[2018-04-18] MEDS ORDERED: LOPE-145 PO (10:27)
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
--- NOTE | 2018-04-18 10:37 | NUR ---
SPOKE WITH THE PATIENT ABOUT HER MEDICATIONS, WE WENT OVER THE EXT MED HX AND SHE VERIFIED HOW SHE TAKES HER MEDICATIONS. SHE FILLED LISINOPRIL 10MG #90 04-12-18 HOWEVER SHE STATES SHE IS NOT TAKING THIS DOSE, SHE TAKES THE 20MG BID THAT WAS FILLED EARLIER IN THE MONTH. SHE STATES SHE IS NO LONGER TAKING THE CLONIDINE THAT WAS FILLED 03-24-18 FOR A 90 DAY SUPPLY. HER NIFEDIPINE IS PAST DUE FOR REFILL, SHE STATES THIS WAS STOPPED FOR A SHORT TIME BUT HAS SINCE BEEN RESUMED AND THAT IS WHY IT IS PAST DUE FOR REFILL. SHE TAKES PRILOSEC DAILY, MAG 250 2 DAILY, AND IMODIUM PRN OTC.
--- NOTE | 2018-04-18 11:00 | NUR ---
Abd drsg removed. Wound is well approximated, no redness, no draining, no streaking. No s/s infection at this time. Wound cleaned with NS soaked gauze et patted dry. Xeroform placed on wound et covered with 4x4. Drsg secured with opsite. Wound to Lt elbow cleansed with NS sterling et redressed with gauze et hypafix tape.
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
--- NOTE | 2018-04-18 14:55 | NUR ---
PATIENT HERE AT THIS TIME. FAMILY AT BESIDE.
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
--- NOTE | 2018-04-18 16:58 | Anesthesia-General Post-Op ---
General Patient Condition Mental Status/LOC: Same as Preop Cardiovascular: Satisfactory Nausea/Vomiting: Absent Respiratory: Satisfactory Pain: Controlled Complications: Absent Post Op Complications Complications None Follow Up Care/Instructions Patient Instructions None needed. Anesthesia/Patient Condition Patient Condition Patient is doing well, no complaints, stable vital signs, no apparent adverse anesthesia problems. PONCE MURILLO DO Apr 18, 2018 16:58
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
[2018-04-19 00:44] VITALS: BP 121/56
[2018-04-19 05:46] LABS: HEMOGLOBIN 9.4 G/DL (11.5-16.0); MEAN PLATELET VOLUME 11.8 FL (7.4-10.4); WHITE BLOOD COUNT 7.6 10^3/uL (4.3-11.0)
[2018-04-19] MEDS: inSUlin ASPART (NovoLOG) 1 UNIT/0.01 ML (CHARGE PER UNIT) SC SCH ×2 (06:06→11:45)
[2018-04-19 06:28] LABS: ALANINE AMINOTRANSFERASE 16 U/L (0-55); ALBUMIN 3.4 GM/DL (3.2-4.5); ALKALINE PHOSPHATASE 49 U/L (40-136); BILIRUBIN,TOTAL 0.4 MG/DL (0.1-1.0); BUN/CREATININE RATIO 19; CALCIUM 8.8 MG/DL (8.5-10.1); CARBON DIOXIDE 25 MMOL/L (21-32); CHLORIDE 102 MMOL/L (98-107); CREATININE SERUM 0.74 MG/DL (0.60-1.30); GFR ESTIMATED > 60; GLUCOSE 127 MG/DL (70-105); MAGNESIUM 2.3 MG/DL (1.8-2.4); POTASSIUM 4.5 MMOL/L (3.6-5.0); SODIUM 134 MMOL/L (135-145); TOTAL PROTEIN 5.4 GM/DL (6.4-8.2)
[2018-04-19 08:00] VITALS: BP 135/64
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
[2018-04-19] MEDS: NIFEdipine ER 60 MG (PROCARDIA XL) TAB PO SCH (08:50)
[2018-04-19] MEDS ORDERED: ACHD5005 PO (12:59)
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
[2018-04-19] MEDS ORDERED: NIFE60TA74 PO (13:44)
[2018-04-19] MEDS ORDERED: FURO20TA4 PO (13:44)
--- NOTE | 2018-04-19 14:53 | NUR ---
JIMBO CASTRO demonstrates understanding of discharge instructions and accurately returns instructions upon questioning. Copy of Post-Discharge Instructions and Medication Discharge Instructions given to patient. JIMBO CASTRO is able to manage continuing needs after discharge. Patients belongings returned to patient. Skin dry and intact; no breakdown noted. Patient discharged from [facility] on 04/19/18 at 1410. JIMBO CASTRO left floor via wheel chair, accompanied by staff and family. d/c medication addressed with dr dickey before discharge, f/u appointment, and dressing changes to the wound and extra supplies given to latesha last till next dr appointment
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
== END 2018-04-19 14:10 | disposition home or self-care (01) | DRG 441 ==
LOC: EDUNIT# 13:01 → ER 13:02 → ICU 13:33 → SDC 13:33 → ICU 13:38 → SDC 13:38 → 4TH 04-18 14:58 → ICU 04-18 14:58 → UNDOFXSDCSVC 04-18 14:58 → 4TH 04-18 14:58 → SDC 04-19 14:10 → 4TH 04-19 14:10
PROVIDERS: ADMIT Surgery; ATTEND Surgery
PROC: 0JQ83ZZ Repair Abdomen Subcutaneous Tissue and Fascia, Percutaneous Approach (ICD-10-PCS; principal; 2018-04-17 13:36)
DX: S36.114A Minor laceration of liver, initial encounter (principal); S31.611A Laceration without foreign body of abdominal wall, left upper quadrant with penetration into peritoneal cavity, initial encounter; S51.012A Laceration without foreign body of left elbow, initial encounter; S61.411A Laceration without foreign body of right hand, initial encounter; I48.91 Unspecified atrial fibrillation; I11.0 Hypertensive heart disease with heart failure; I50.9 Heart failure, unspecified; E78.00 Pure hypercholesterolemia, unspecified; E11.42 Type 2 diabetes mellitus with diabetic polyneuropathy; Z86.73 Personal history of transient ischemic attack (TIA), and cerebral infarction without residual deficits; K21.9 Gastro-esophageal reflux disease without esophagitis; I95.9 Hypotension, unspecified; E83.42 Hypomagnesemia; D64.9 Anemia, unspecified; I25.10 Atherosclerotic heart disease of native coronary artery without angina pectoris; K59.00 Constipation, unspecified; X99.1XXA Assault by knife, initial encounter
CPT/HCPCS: 36415; 51702; 71045; 80048; 80053; 80076; 80306; 80320; 81000; 82962; 83735; 83880; 84100; 84484; 85027; 85379; 85384; 85610; 85730; 86850; 86900; 86901; 87081; 90715; 93041; 93306; 94664; 99291

== ENCOUNTER 2019-01-08 10:55 | Emergency (ER) | payer MEDICARE ==
[~2019-01-08] VITALS: Ht 157.4 cm; Wt 51.8 kg
[~2019-01-08 10:55] MED LIST changes: +ACHD5005 PO; +ATOR40TA70 PO; +DIGO125T PO; +FURO20TA4 PO; +LISI-552 PO; +LISI10TA2 PO; +LOPE-145 PO; +MAGN250T13 PO; -OMEP20CA12 PO; +OMEP20CA13 PO; +OMEP20TA33 PO
[2019-01-08 11:33] LABS: BILIRUBIN,URINE NEGATIVE (NEGATIVE); CLARITY,URINE CLEAR; COLOR,URINE YELLOW; GLUCOSE, URINE (UA) NEGATIVE (NEGATIVE); KETONES,URINE NEGATIVE (NEGATIVE); LEUKOCYTE ESTERASE ,URINE 1+ (NEGATIVE); NITRITE,URINE NEGATIVE (NEGATIVE); PH,URINE 5 (5-9); PROTEIN,URINE NEGATIVE (NEGATIVE)
[2019-01-08 11:46] LABS: BACTERIA,URINE NEGATIVE /HPF; SQUAMOUS EPITHELIAL CELL,UR 0-2 /HPF
--- NOTE | 2019-01-08 11:59 | ED Abdominal Pain ---
General Chief Complaint: Abdominal/GI Problems Stated Complaint: ABD PAIN History of Present Illness Date Seen by Provider: Jan 08, 2019 Time Seen by Provider: 11:30 Initial Comments 83-year-old female presents after seeing her primary care provider earlier today for abdominal pain. She's had a previous bowel obstruction, approximately 2 years ago. She reports intermittent constipation and diarrhea, over the last 3-4 week. She had one episode of diarrhea earlier today. She denies any nausea or vomiting at this time. She reports approximately 8 pound weight gain over the last month and notices distention in her upper abdomen. Timing/Duration: Getting Worse, Intermittent Severity/Quality: Mild Location: RUQ, LUQ, Epigastric Radiation: No Radiation Activities at Onset: None Associated Symptoms: No Back Pain, No Chest Pain, No Diaphoresis, No Fever/Chills, No Fatigue, No Headache, No Heartburn, No Nausea/Vomiting, No Rash, No Shortness of Air; Swelling/Mass in Abdomen; No Syncope, No Weakness Allergies and Home Medications Allergies Coded Allergies: Penicillins (Verified Allergy, Unknown, 10/25/16) Sulfa (Sulfonamide Antibiotics) (Verified Allergy, Unknown, 10/25/16) latex (Verified Allergy, Unknown, 10/25/16) meperidine (Verified Allergy, Unknown, 10/25/16) Home Medications Acarbose 100 Mg Tablet, 100 MG PO TID, (Reported) Allopurinol 100 Mg Tablet, 100 MG PO DAILY, (Reported) Apixaban 2.5 Mg Tablet, 2.5 MG PO BID, (Reported) Atorvastatin Calcium 40 Mg Tablet, 40 MG PO HS, (Reported) Dicyclomine HCl 10 Mg Capsule, 10 MG PO QIDACHS Prescribed by: CHEMA ZEPEDA on 01/08/19 1334 Digoxin 125 Mcg Tablet, 125 MCG PO DAILY, (Reported) Furosemide 20 Mg Tablet, 20 MG PO DAILY Prescribed by: NIKKI MCKEON on 04/19/18 1344 Hydrocodone Bit/Acetaminophen 1 Tab Tab, 1 TAB PO Q4-6HR PRN for PAIN-MODERATE Prescribed by: KIMBER VALERO on 04/19/18 1259 Isosorbide Mononitrate 30 Mg Tab.er.24h, 30 MG PO BID, (Reported) Lisinopril 20 Mg Tablet, 20 MG PO BID, (Reported) Loperamide HCl 2 Mg Capsule, PO UD PRN for DIARRHEA, (Reported) PER OTC INSTRUCTIONS Magnesium Oxide 250 Mg Tablet, 500 MG PO DAILY, (Reported) Metformin HCl 500 Mg Tablet, 500 MG PO BID, (Reported) Nifedipine 60 Mg Tablet.er, 60 MG PO DAILY Prescribed by: NIKKI MCKEON on 04/19/18 1344 Omeprazole Magnesium 20 Mg Tablet.dr, 20 MG PO DAILY, (Reported) Patient Home Medication List Home Medication List Reviewed: Yes Review of Systems Review of Systems Constitutional: no symptoms reported, see HPI Gastrointestinal: See HPI, Abdomen Distended, Abdominal Pain, Constipated, Diarrhea; Denies Difficulty Swallowing, Denies Nausea, Denies Poor Appetite, Denies Poor Fluid Intake, Denies Rectal Bleeding, Denies Vomiting All Other Systems Reviewed Negative Unless Noted: Yes Past Jkjevly-Sjpras-Lcmejq Hx Past Med/Social Hx: Reviewed Nursing Past Med/Soc Hx Patient Social History Recent Hopitalizations: No Immunizations Up To Date Tetanus Booster (TDap): More than 5yrs PED Vaccines UTD: Yes Date of Pneumonia Vaccine: Dec 12, 2017 Date of Influenza Vaccine: Dec 12, 2017 Past Medical History Surgeries: Yes (BOWEL RESECTION 07/2016; BSO) Abdominal, Appendectomy, Bowel Surgery, Hysterectomy, Oophorectomy, Tubal Ligation Respiratory: No Cardiac: Yes Atrial Fibrillation, Chronic Edema/Swelling, High Cholesterol, Hypertension 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 2.0oz. 51.490979lq; 18.9 BMI Method:Stated General Appearance: WD/WN, no apparent distress HEENT: PERRL/EOMI, normal ENT inspection, TMs normal, pharynx normal Neck: non-tender, full range of motion, supple, normal inspection Respiratory: chest non-tender, lungs clear, normal breath sounds Cardiovascular: normal peripheral pulses, regular rate, rhythm Gastrointestinal: normal bowel sounds, soft, distended (upper quadrants); No guarding, No rebound; tenderness (epigastric); No hernia, No mass Neurologic/Psychiatric: no motor/sensory deficits, alert, normal mood/affect, oriented x 3 Skin: normal color, warm/dry Progress/Results/Core Measures Results/Orders Lab Results Laboratory Tests Test 01/08/19 11:19 01/08/19 11:55 Range/Units Urine Color YELLOW Urine Clarity CLEAR Urine pH 5 5-9 Urine Specific [place] 1.010 L 1.016-1.022 Urine Protein NEGATIVE NEGATIVE Urine Glucose (UA) NEGATIVE NEGATIVE Urine Ketones NEGATIVE NEGATIVE Urine Nitrite NEGATIVE NEGATIVE Urine Bilirubin NEGATIVE NEGATIVE Urine Urobilinogen NORMAL NORMAL MG/DL Urine Leukocyte Esterase 1+ H NEGATIVE Urine RBC (Auto) NEGATIVE NEGATIVE Urine RBC NONE /HPF Urine WBC NONE /HPF Urine Squamous Epithelial Cells 0-2 /HPF Urine Crystals NONE /LPF Urine Bacteria NEGATIVE /HPF Urine Casts NONE /LPF Urine Mucus NEGATIVE /LPF Urine Culture Indicated NO White Blood Count 7.1 4.3-11.0 10^3/uL Red Blood Count 4.56 4.35-5.85 10^6/uL Hemoglobin 12.1 11.5-16.0 G/DL Hematocrit 38 35-52 % Mean Corpuscular Volume 84 80-99 FL Mean Corpuscular Hemoglobin 27 25-34 PG Mean Corpuscular Hemoglobin Concent 32 32-36 G/DL Red Cell Distribution Width 16.6 H 10.0-14.5 % Platelet Count 213 130-400 10^3/uL Mean Platelet Volume 11.4 H 7.4-10.4 FL Neutrophils (%) (Auto) 47 42-75 % Lymphocytes (%) (Auto) 31 12-44 % Monocytes (%) (Auto) 14 H 0-12 % Eosinophils (%) (Auto) 7 0-10 % Basophils (%) (Auto) 1 0-10 % Neutrophils # (Auto) 3.4 1.8-7.8 X 10^3 Lymphocytes # (Auto) 2.2 1.0-4.0 X 10^3 Monocytes # (Auto) 1.0 0.0-1.0 X 10^3 Eosinophils # (Auto) 0.5 H 0.0-0.3 10^3/uL Basophils # (Auto) 0.1 0.0-0.1 10^3/uL Sodium Level 134 L 135-145 MMOL/L Potassium Level 4.9 3.6-5.0 MMOL/L Chloride Level 102 98-107 MMOL/L Carbon Dioxide Level 20 L 21-32 MMOL/L Anion Gap 12 5-14 MMOL/L Blood Urea Nitrogen 17 7-18 MG/DL Creatinine 0.88 0.60-1.30 MG/DL Estimat Glomerular Filtration Rate > 60 BUN/Creatinine Ratio 19 Glucose Level 159 H 70-105 MG/DL Calcium Level 10.0 8.5-10.1 MG/DL Corrected Calcium 9.7 8.5-10.1 MG/DL Total Bilirubin 0.2 0.1-1.0 MG/DL Aspartate Amino Transf (AST/SGOT) 23 5-34 U/L Alanine Aminotransferase (ALT/SGPT) 23 0-55 U/L Alkaline Phosphatase 101 40-136 U/L Total Protein 7.4 6.4-8.2 GM/DL Albumin 4.4 3.2-4.5 GM/DL Amylase Level 63 25-125 U/L Lipase 30 8-78 U/L My Orders Orders - DUANE,CHEMA LIME KILN TENDER Ua Culture If Indicated (01/08/19 11:25) Amylase (01/08/19 11:31) Cbc With Automated Diff (01/08/19 11:31) Comprehensive Metabolic Panel (01/08/19 11:31) Lipase (01/08/19 11:31) Ct Abdomen/Pelvis W (01/08/19 11:35) I-Stat Bedside Testing (01/08/19 11:49) Iohexol Injection (Omnipaque 350 Mg/Ml 1 (01/08/19 12:30) Received Contrast (Hold Metformin- Contr (01/08/19 12:30) Sodium Chloride Flush (Catheter Flush Sy (01/08/19 12:30) Ns (Ivpb) (Sodium Chloride 0.9% Ivpb Bag (01/08/19 12:30) Ed Iv/Invasive Line Start (01/08/19 12:45) Ns Iv 500 Ml (Sodium Chloride 0.9%) (01/08/19 12:45) Medications Given in ED Current Medications Medications Dose Ordered Sig/Pierce Route Start Time Stop Time Status Last Admin Dose Admin Iohexol 100 ml ONCE ONCE IV 01/08/19 12:30 01/08/19 12:31 DC 01/08/19 12:37 66 ML Sodium Chloride 10 ml NEEDED PRN IV 01/08/19 12:30 01/08/19 14:19 DC 01/08/19 12:37 10 ML Sodium Chloride 100 ml ONCE ONCE IV 01/08/19 12:30 01/08/19 12:31 DC 01/08/19 12:37 80 ML Sodium Chloride 500 ml @ 0 mls/hr Q0M ONCE IV 01/08/19 12:45 01/08/19 12:47 DC 01/08/19 12:57 500 MLS/HR Vital Signs/I&O 01/08/19 01/08/19 11:07 14:19 Temp 36.0 Pulse 76 72 Resp 15 16 B/P (MAP) 152/63 (92) 102/56 Pulse Ox 99 100 O2 Delivery Room Air Room Air Progress Progress Note : Time: 11:30 Progress Note Patient seen and evaluated, will obtain labs and a CT with contrast of the abdomen and pelvis. 1215 labs all essentially normal. Saline 500 ML's per IV. 1300 CT results discussed with patient. All questions answered and discharge planning performed, return precautions discussed. Diagnostic Imaging Diagonstic Imaging: CT Plain Films/CT/US/NM/MRI: abdomen, pelvis Comments NAME: JIMBO CASTRO [facility] REC#: [id number] PT STATUS: REG ER : 1935 PHYSICIAN: CHEMA ZEPEDA [facility] ADMIT DATE: 01/08/19/ER Draft POSDate of Exam:01/08/19 CT ABDOMEN/PELVIS W PROCEDURE: CT abdomen and pelvis with contrast. TECHNIQUE: Multiple contiguous axial images were obtained through the abdomen and pelvis after administration of intravenous contrast. Auto Exposure Controls were utilized during the CT exam to meet ALARA standards for radiation dose reduction. INDICATION: Abdominal pain, bloating, and constipation. COMPARISON: Correlation is made with the prior CT from 02/05/2018. FINDINGS: The lung bases are clear. No discrete liver mass is identified. The gallbladder is unremarkable. No biliary ductal dilatation is seen. The pancreas and spleen are unremarkable. No adrenal mass is detected. The kidneys are unremarkable. The aorta is nonaneurysmal. No central retroperitoneal or mesenteric lymphadenopathy is seen. The small and large bowel loops are of normal caliber. No obstruction is seen. There is a large amount of stool within the colon. No free fluid or fluid collection is seen. The bladder is unremarkable. No pelvic lymphadenopathy is seen. The bony structures are nonacute. IMPRESSION: There is moderate stool throughout the colon, suggestive of constipation. The study is otherwise unremarkable. No acute feature is identified. Dictated on workstation # [id number] Dict: 01/08/19 1255 Trans: 01/08/19 1259 [id number] Interpreted by: AMAN SALTER MD Departure Impression Primary Impression: Irritable bowel syndrome with both constipation and diarrhea Disposition: HOME, SELF-CARE Condition: Improved Departure-Patient Inst. Decision time for Depature: 13:00 Referrals: ALEIDA ALMEIDA DO (PCP/Family) Primary Care Physician Patient Instructions: Irritable Bowel Syndrome (DC) Add. Discharge Instructions: Begin taking an [id number] probiotic as directed on bottle. Increase water intake, 16 oz every 2 hours while awake. Walk for 20 min 1-2 times daily. Follow-up with your primary care provider if symptoms are not improving or worsen. Consider repeating her colonoscopy if symptoms are not improving. If symptoms are worsening consider evaluation by linux kernel developer. Take Levsin as directed. You may take MiraLAX one capful daily for constipation, avoid taking when you're having diarrhea. Return to the emergency department for new, urgent health care needs. All discharge instructions reviewed with patient and/or family. Voiced understanding. Scripts Dicyclomine HCl (Dicyclomine HCl) 10 Mg Capsule 10 MG PO QIDACHS, #40 CAP 0 Refills Prov: CHEMA ZEPEDA 01/08/19 Copy Copies To 1: ALEIDA ALMEIDA AMY ARNP Jan 08, 2019 11:59 POS
[2019-01-08 12:06] LABS: BASOPHILS # (AUTO) 0.1 10^3/uL (0.0-0.1); BASOPHILS % (AUTO) 1 % (0-10); EOSINOPHILS # (AUTO) 0.5 10^3/uL (0.0-0.3); EOSINOPHILS % (AUTO) 7 % (0-10); HEMATOCRIT 38 % (35-52); HEMOGLOBIN 12.1 G/DL (11.5-16.0); LYMPHOCYTES # (AUTO) 2.2 X 10^3 (1.0-4.0); LYMPHOCYTES % (AUTO) 31 % (12-44); MEAN CORPUSCULAR HEMOGLOBIN 27 PG (25-34); MEAN CORPUSCULAR HGB CONC 32 G/DL (32-36); MEAN CORPUSCULAR VOLUME 84 FL (80-99); MEAN PLATELET VOLUME 11.4 FL (7.4-10.4); MONOCYTES % (AUTO) 14 % (0-12); NEUTROPHILS # (AUTO) 3.4 X 10^3 (1.8-7.8); NEUTROPHILS % (AUTO) 47 % (42-75); PLATELET COUNT 213 10^3/uL (130-400); RED CELL DISTRIBUTION WIDTH 16.6 % (10.0-14.5); WHITE BLOOD COUNT 7.1 10^3/uL (4.3-11.0)
[2019-01-08 12:27] LABS: ALANINE AMINOTRANSFERASE 23 U/L (0-55); ALBUMIN 4.4 GM/DL (3.2-4.5); ALKALINE PHOSPHATASE 101 U/L (40-136); AMYLASE 63 U/L (25-125); BILIRUBIN,TOTAL 0.2 MG/DL (0.1-1.0); BUN/CREATININE RATIO 19; CARBON DIOXIDE 20 MMOL/L (21-32); CHLORIDE 102 MMOL/L (98-107); CREATININE SERUM 0.88 MG/DL (0.60-1.30); GFR ESTIMATED > 60; GLUCOSE 159 MG/DL (70-105); LIPASE 30 U/L (8-78); POTASSIUM 4.9 MMOL/L (3.6-5.0); SODIUM 134 MMOL/L (135-145); TOTAL PROTEIN 7.4 GM/DL (6.4-8.2)
[2019-01-08] MEDS ORDERED: CATHETER FLUSH 10 ML SYR IV PRN (12:30)
[2019-01-08] MEDS ORDERED: IOHEXOL 350 MG/ML 100 ML (OMNIPAQUE 350) VIAL IV ONE (12:30)
[2019-01-08] MEDS ORDERED: HOLD METFORMIN - RECEIVED CONTRAST 20 ML VIAL IV SCH (12:30)
[2019-01-08] MEDS ORDERED: NS 100 ML (IVPB) BAG IV ONE (12:30)
[2019-01-08] MEDS ORDERED: NS IV 500 ML 500 ML IV ONE (12:45)
[2019-01-08] MEDS ORDERED: GABA-488 (12:53)
--- NOTE | 2019-01-08 13:00 | Diagnostic Imaging Report ---
PROCEDURE: CT abdomen and pelvis with contrast. TECHNIQUE: Multiple contiguous axial images were obtained through the abdomen and pelvis after administration of intravenous contrast. Auto Exposure Controls were utilized during the CT exam to meet ALARA standards for radiation dose reduction. INDICATION: Abdominal pain, bloating, and constipation. COMPARISON: Correlation is made with the prior CT from 02/05/2018. FINDINGS: The lung bases are clear. No discrete liver mass is identified. The gallbladder is unremarkable. No biliary ductal dilatation is seen. The pancreas and spleen are unremarkable. No adrenal mass is detected. The kidneys are unremarkable. The aorta is nonaneurysmal. No central retroperitoneal or mesenteric lymphadenopathy is seen. The small and large bowel loops are of normal caliber. No obstruction is seen. There is a large amount of stool within the colon. No free fluid or fluid collection is seen. The bladder is unremarkable. No pelvic lymphadenopathy is seen. The bony structures are nonacute. IMPRESSION: There is moderate stool throughout the colon, suggestive of constipation. The study is otherwise unremarkable. No acute feature is identified. Dictated by: Dictated on workstation # [id number]
[2019-01-08] MEDS ORDERED: DICY10CA12 PO (13:34)
[2019-01-08 14:19] VITALS: BP 102/56
== END 2019-01-08 14:19 | disposition home or self-care (01) ==
LOC: EDUNIT# 10:55 → ER 10:56
DX: K58.9 Irritable bowel syndrome, unspecified (principal); K59.00 Constipation, unspecified; R19.7 Diarrhea, unspecified; I10 Essential (primary) hypertension; E11.40 Type 2 diabetes mellitus with diabetic neuropathy, unspecified; E78.00 Pure hypercholesterolemia, unspecified; I48.91 Unspecified atrial fibrillation; K21.9 Gastro-esophageal reflux disease without esophagitis; Z88.0 Allergy status to penicillin; Z87.19 Personal history of other diseases of the digestive system; Z86.73 Personal history of transient ischemic attack (TIA), and cerebral infarction without residual deficits; Z88.2 Allergy status to sulfonamides; Z91.040 Latex allergy status; Z88.5 Allergy status to narcotic agent; Z79.01 Long term (current) use of anticoagulants; Z79.84 Long term (current) use of oral hypoglycemic drugs; Z90.49 Acquired absence of other specified parts of digestive tract; Z90.710 Acquired absence of both cervix and uterus; Z98.51 Tubal ligation status
CPT/HCPCS: 36415; 74177; 80053; 81000; 82150; 83690; 85025; 96360

== ENCOUNTER → 2019-04-16 | Outpatient (CLI) | payer MEDICARE ==
[~2019-04-16] MED LIST changes: +DICY10CA12 PO; -DIGO125T PO; +DIGO125T3 PO; +GABA-488; -LOPE-145 PO; +LOPE-175 PO; -METO-395 PO; +MTP100TCR PO; +NFD60TCR PO; -NIFE60TA74 PO; +OMEP-280 PO; -OMEP20CA13 PO
== END ==
LOC: CARD 08:28
PROVIDERS: ATTEND Physician Assistant
DX: I25.10 Atherosclerotic heart disease of native coronary artery without angina pectoris (principal); I65.29 Occlusion and stenosis of unspecified carotid artery; I10 Essential (primary) hypertension; I07.1 Rheumatic tricuspid insufficiency
CPT/HCPCS: 93306

== ENCOUNTER 2019-08-24 20:23 | Emergency (ER) | payer MEDICARE ==
[~2019-08-24] VITALS: Ht 157 cm; Wt 51.8 kg
[~2019-08-24 20:23] MED LIST changes: -OMEP-280 PO; +OMEP20CA18 PO
[2019-08-24] MEDS ORDERED: LIDOCAINE 2% VISCOUS 15 ML UDC PO ONE (20:30)
[2019-08-24] MEDS ORDERED: ANTACID SUSP 30 ML UDC (MYLANTA) PO ONE (20:30)
[2019-08-24] MEDS ORDERED: HYOSCYAMINE 0.125 MG (LEVSIN) TAB PO ONE (20:30)
--- NOTE | 2019-08-24 20:34 | ED GI ---
General Chief Complaint: Abdominal/GI Problems Stated Complaint: ABD BLOATING/DIARRHEA Source of Information: Patient Exam Limitations: No Limitations History of Present Illness Date Seen by Provider: Aug 24, 2019 Time Seen by Provider: 20:32 Initial Comments To ER with abdominal bloating for 2 weeks worse today, diarrhea and passing gas. She does report heartburn currently in the epigastric region. No fever no chills no cough no shortness of breath. Timing/Duration: 1-2 Days Severity/Quality: Moderate Location: Generalized Abdomen Radiation: No Radiation Activities at Onset: None Allergies and Home Medications Allergies Coded Allergies: Penicillins (Verified Allergy, Unknown, 10/25/16) Sulfa (Sulfonamide Antibiotics) (Verified Allergy, Unknown, 10/25/16) latex (Verified Allergy, Unknown, 10/25/16) meperidine (Verified Allergy, Unknown, 10/25/16) Home Medications Acarbose 100 Mg Tablet, 100 MG PO TID, (Reported) Allopurinol 100 Mg Tablet, 100 MG PO DAILY, (Reported) Apixaban 2.5 Mg Tablet, 2.5 MG PO BID, (Reported) Atorvastatin Calcium 40 Mg Tablet, 40 MG PO HS, (Reported) Dicyclomine HCl 10 Mg Capsule, 10 MG PO QIDACHS Prescribed by: CHEMA ZEPEDA on 01/08/19 1334 Dicyclomine HCl 10 Mg Capsule, 10 MG PO TID Prescribed by: STIVEN LAMBERT on 08/24/19 2109 Digoxin 125 Mcg Tablet, 125 MCG PO DAILY, (Reported) Furosemide 20 Mg Tablet, 20 MG PO DAILY Prescribed by: NIKKI MCKEON on 04/19/18 1344 Hydrocodone Bit/Acetaminophen 1 Tab Tab, 1 TAB PO Q4-6HR PRN for PAIN-MODERATE Prescribed by: KIMBER VALERO on 04/19/18 1259 Isosorbide Mononitrate 30 Mg Tab.er.24h, 30 MG PO BID, (Reported) Lisinopril 20 Mg Tablet, 20 MG PO BID, (Reported) Loperamide HCl 2 Mg Capsule, PO UD PRN for DIARRHEA, (Reported) PER OTC INSTRUCTIONS Magnesium Oxide 250 Mg Tablet, 500 MG PO DAILY, (Reported) Metformin HCl 500 Mg Tablet, 500 MG PO BID, (Reported) Nifedipine 60 Mg Tablet.er, 60 MG PO DAILY Prescribed by: NIKKI MCKEON on 04/19/18 1344 Omeprazole Magnesium 20 Mg Tablet., 20 MG PO DAILY, (Reported) Patient Home Medication List Home Medication List Reviewed: Yes Review of Systems Review of Systems Constitutional: see HPI EENTM: No Symptoms Reported Respiratory: No Symptoms Reported Gastrointestinal: See HPI, Abdominal Pain, Diarrhea Genitourinary: No Symptoms Reported Musculoskeletal: no symptoms reported Skin: no symptoms reported Psychiatric/Neurological: No Symptoms Reported Past Hvniqqb-Dgzgkp-Almunl Hx Patient Social History Recent Foreign Travel: No Contact w/Someone Who Travel: No Recent Hopitalizations: No Immunizations Up To Date Tetanus Booster (TDap): More than 5yrs PED Vaccines UTD: Yes Date of Pneumonia Vaccine: Dec 12, 2017 Date of Influenza Vaccine: Dec 12, 2017 Past Medical History Surgeries: Yes (BOWEL RESECTION 07/2016; BSO) Abdominal, Appendectomy, Bowel Surgery, Hysterectomy, Oophorectomy, Tubal Ligation Respiratory: No Cardiac: Yes Atrial Fibrillation, Chronic Edema/Swelling, High Cholesterol, Hypertension 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 2.0oz. 51.734219aa; 20.00 BMI Method:Stated General Appearance: WD/WN, no apparent distress Respiratory: no respiratory distress, no accessory muscle use Gastrointestinal: normal bowel sounds, non tender, soft, other (abdomen somewhat distended, abdomen soft and minimally tender diffusely, bowel sounds are normal all) Extremities: normal range of motion, non-tender Neurologic/Psychiatric: alert, normal mood/affect, oriented x 3 Skin: normal color, warm/dry Progress/Results/Core Measures Results/Orders Lab Results Laboratory Tests Test 08/24/19 20:48 Range/Units White Blood Count 9.2 4.3-11.0 10^3/uL Red Blood Count 4.06 L 4.35-5.85 10^6/uL Hemoglobin 11.4 L 11.5-16.0 G/DL Hematocrit 35 35-52 % Mean Corpuscular Volume 86 80-99 FL Mean Corpuscular Hemoglobin 28 25-34 PG Mean Corpuscular Hemoglobin Concent 33 32-36 G/DL Red Cell Distribution Width 16.6 H 10.0-14.5 % Platelet Count 276 130-400 10^3/uL Mean Platelet Volume 11.7 H 7.4-10.4 FL Neutrophils (%) (Auto) 46 42-75 % Lymphocytes (%) (Auto) 33 12-44 % Monocytes (%) (Auto) 15 H 0-12 % Eosinophils (%) (Auto) 6 0-10 % Basophils (%) (Auto) 1 0-10 % Neutrophils # (Auto) 4.2 1.8-7.8 X 10^3 Lymphocytes # (Auto) 3.0 1.0-4.0 X 10^3 Monocytes # (Auto) 1.4 H 0.0-1.0 X 10^3 Eosinophils # (Auto) 0.6 H 0.0-0.3 10^3/uL Basophils # (Auto) 0.1 0.0-0.1 10^3/uL Sodium Level 136 135-145 MMOL/L Potassium Level 5.2 H 3.6-5.0 MMOL/L Chloride Level 98 98-107 MMOL/L Carbon Dioxide Level 24 21-32 MMOL/L Anion Gap 14 5-14 MMOL/L Blood Urea Nitrogen 23 H 7-18 MG/DL Creatinine 1.14 0.60-1.30 MG/DL Estimat Glomerular Filtration Rate 45 BUN/Creatinine Ratio 20 Glucose Level 161 H 70-105 MG/DL Calcium Level 10.1 8.5-10.1 MG/DL Corrected Calcium 9.7 8.5-10.1 MG/DL Total Bilirubin 0.2 0.1-1.0 MG/DL Aspartate Amino Transf (AST/SGOT) 28 5-34 U/L Alanine Aminotransferase (ALT/SGPT) 21 0-55 U/L Alkaline Phosphatase 82 40-136 U/L Total Protein 7.9 6.4-8.2 GM/DL Albumin 4.5 3.2-4.5 GM/DL Lipase 51 8-78 U/L My Orders Orders - STIVEN LAMBERT APRN Cbc With Automated Diff (08/24/19 20:24) Comprehensive Metabolic Panel (08/24/19 20:24) Ed Iv/Invasive Line Start (08/24/19 20:24) Lipase (08/24/19 20:24) Hyoscyamine Sl Tablet (Levsin Sl Tablet) (08/24/19 20:30) Antacid Suspension (Mylanta Suspension (08/24/19 20:30) Lidocaine 2% Viscous 15 Ml (Xylocaine Vi (08/24/19 20:30) Ct Abdomen/Pelvis Wo (08/24/19 20:37) Lactated Ringers (Lr 1000 Ml Iv Solution (08/24/19 21:30) Medications Given in ED Vital Signs/I&O 08/24/19 08/24/19 20:27 22:25 Temp 36.7 36.7 Pulse 78 74 Resp 18 18 B/P (MAP) 181/66 (104) 157/65 (104) Pulse Ox 98 O2 Delivery Room Air Room Air Diagnostic Imaging Diagonstic Imaging: CT Comments NAME: JIMBO CASTRO [facility] REC#: [id number] PT STATUS: REG ER : 1935 PHYSICIAN: STIVEN LAMBERT APRN ADMIT DATE: 08/24/19/ER Draft Date of Exam:08/24/19 CT ABDOMEN/PELVIS WO PROCEDURE: CT abdomen and pelvis without contrast. TECHNIQUE: Multiple contiguous axial images were obtained through the abdomen and pelvis without the use of intravenous contrast. Auto Exposure Controls were utilized during the CT exam to meet ALARA standards for radiation dose reduction. INDICATION: Abdominal pain. Diarrhea. COMPARISON: 01/08/2019 FINDINGS: Included portions of the lung bases are clear. CT ABDOMEN: Large amount of air and stool is identified scattered throughout the colon. Patient is status post previous partial right hemicolectomy. Small bowel loops are nondistended. The kidneys, adrenal glands, spleen, pancreas, and liver have an unremarkable noncontrast CT appearance. There is no loculated fluid collection, free fluid, nor free air within the abdomen. No abnormal mesenteric or retroperitoneal adenopathy is seen. There is moderate diffuse calcified aortic and arterial atherosclerosis. Osseous structures show no acute abnormalities. CT PELVIS: Urinary bladder is unopacified. No calculi are seen within the urinary bladder. There is no loculated fluid collection, free fluid, nor free air within the pelvis. No abnormal lymph nodes are identified. Osseous structures show no acute abnormalities. IMPRESSION: 1. Large amount of air and stool is noted scattered throughout the colon. Please correlate for constipation. 2. Otherwise, no acute abnormalities are seen within the abdomen or pelvis. Dictated on workstation # [id number] Dict: 08/24/192055 Trans: 08/24/192101 [facility] [id number] Interpreted by: MAHIN KHAN MD Electronically signed by: Departure Impression Primary Impression: Abdominal cramping Disposition: HOME, SELF-CARE Condition: Stable Departure-Patient Inst. Decision time for Depature: 21:07 Referrals: ALEIDA ALMEIDA DO (PCP/Family) Primary Care Physician Patient Instructions: NO INSTRUCTIONS GIVEN Add. Discharge Instructions: 1. Medication as directed 2. Return to ER for any concerns 3. Follow-up with your doctor next week 4. All discharge instructions reviewed with patient and/or family. Voiced understanding. Scripts Dicyclomine HCl (Dicyclomine HCl) 10 Mg Capsule 10 MG PO TID, #15 CAP Prov: STIVEN LAMBERT INFRASTRUCTURE SOFTWARE ENGINEER 08/24/19 STIVEN LAMBERT INFRASTRUCTURE SOFTWARE ENGINEER Aug 24, 2019 20:34
[2019-08-24 20:55] LABS: BASOPHILS # (AUTO) 0.1 10^3/uL (0.0-0.1); BASOPHILS % (AUTO) 1 % (0-10); EOSINOPHILS # (AUTO) 0.6 10^3/uL (0.0-0.3); EOSINOPHILS % (AUTO) 6 % (0-10); HEMATOCRIT 35 % (35-52); HEMOGLOBIN 11.4 G/DL (11.5-16.0); LYMPHOCYTES % (AUTO) 33 % (12-44); MEAN CORPUSCULAR HEMOGLOBIN 28 PG (25-34); MEAN CORPUSCULAR HGB CONC 33 G/DL (32-36); MEAN CORPUSCULAR VOLUME 86 FL (80-99); MEAN PLATELET VOLUME 11.7 FL (7.4-10.4); MONOCYTES # (AUTO) 1.4 X 10^3 (0.0-1.0); MONOCYTES % (AUTO) 15 % (0-12); NEUTROPHILS # (AUTO) 4.2 X 10^3 (1.8-7.8); NEUTROPHILS % (AUTO) 46 % (42-75); PLATELET COUNT 276 10^3/uL (130-400); RED CELL DISTRIBUTION WIDTH 16.6 % (10.0-14.5); WHITE BLOOD COUNT 9.2 10^3/uL (4.3-11.0)
--- NOTE | 2019-08-24 21:03 | Diagnostic Imaging Report ---
PROCEDURE: CT abdomen and pelvis without contrast. TECHNIQUE: Multiple contiguous axial images were obtained through the abdomen and pelvis without the use of intravenous contrast. Auto Exposure Controls were utilized during the CT exam to meet ALARA standards for radiation dose reduction. INDICATION: Abdominal pain. Diarrhea. COMPARISON: 01/08/2019 FINDINGS: Included portions of the lung bases are clear. CT ABDOMEN: Large amount of air and stool is identified scattered throughout the colon. Patient is status post previous partial right hemicolectomy. Small bowel loops are nondistended. The kidneys, adrenal glands, spleen, pancreas, and liver have an unremarkable noncontrast CT appearance. There is no loculated fluid collection, free fluid, nor free air within the abdomen. No abnormal mesenteric or retroperitoneal adenopathy is seen. There is moderate diffuse calcified aortic and arterial atherosclerosis. Osseous structures show no acute abnormalities. CT PELVIS: Urinary bladder is unopacified. No calculi are seen within the urinary bladder. There is no loculated fluid collection, free fluid, nor free air within the pelvis. No abnormal lymph nodes are identified. Osseous structures show no acute abnormalities. IMPRESSION: 1. Large amount of air and stool is noted scattered throughout the colon. Please correlate for constipation. 2. Otherwise, no acute abnormalities are seen within the abdomen or pelvis. Dictated by: Dictated on workstation # [id number]
[2019-08-24 21:07] LABS: ALBUMIN 4.5 GM/DL (3.2-4.5); POTASSIUM 5.2 MMOL/L (3.6-5.0)
[2019-08-24 21:08] LABS: CALCIUM 10.1 MG/DL (8.5-10.1)
[2019-08-24] MEDS ORDERED: DICY10CA12 PO (21:09)
[2019-08-24 21:10] LABS: TOTAL PROTEIN 7.9 GM/DL (6.4-8.2)
[2019-08-24 21:11] LABS: BILIRUBIN,TOTAL 0.2 MG/DL (0.1-1.0)
[2019-08-24 21:13] LABS: CREATININE SERUM 1.14 MG/DL (0.60-1.30)
[2019-08-24] MEDS ORDERED: LACTATED RINGERS 1,000 ML IV SCH (21:30)
[2019-08-24 22:25] VITALS: BP 157/65
== END 2019-08-24 22:25 | disposition home or self-care (01) ==
LOC: EDUNIT# 20:23 → ER 20:24
DX: R10.84 Generalized abdominal pain (principal); I10 Essential (primary) hypertension; E78.00 Pure hypercholesterolemia, unspecified; I48.91 Unspecified atrial fibrillation; E11.40 Type 2 diabetes mellitus with diabetic neuropathy, unspecified; K21.9 Gastro-esophageal reflux disease without esophagitis; Z88.0 Allergy status to penicillin; Z88.2 Allergy status to sulfonamides; Z91.040 Latex allergy status; Z88.5 Allergy status to narcotic agent; Z79.01 Long term (current) use of anticoagulants; Z79.84 Long term (current) use of oral hypoglycemic drugs; Z86.73 Personal history of transient ischemic attack (TIA), and cerebral infarction without residual deficits
CPT/HCPCS: 36415; 74176; 80053; 83690; 85025

== ENCOUNTER → 2020-03-10 | Outpatient (CLI) | payer MEDICARE ==
[~2020-03-10] VITALS: Ht 160 cm; Wt 52.0 kg
[~2020-03-10] MED LIST changes: +CATHETER FLUSH 10 ML SYR IV PRN; +REGADENOSON 0.4 MG/5 ML SYR (LEXISCAN) IV ONE
[2020-03-10 09:45] VITALS: BP 141/52
--- NOTE | 2020-03-10 14:32 | Cardiology Stress Test Report ---
Stress Test Report Date of Procedure/Referring: Date of Procedure: Mar 10, 2020 PCP Anselmo Yu MD Admitting Physician Khris June DO Baseline Blood Pressure: Blood Pressure Systolic: 141 Blood Pressure Diastolic: 52 Baseline Vitals Vital Signs Date Time Temp Pulse Resp B/P (MAP) Pulse Ox O2 Delivery O2 Flow Rate FiO2 03/10/20 09:45 67 16 141/52 (81) 97 Room Air Summary After explaining the procedure to the patient, she signed a consent and then brought to the stress nuclear laboratory. Patient received 0.4 mg Lexiscan for stress test, ECG, heart rate and blood pressure were monitored continuously. Resting and stress dose of radio tracer were injected, imaging was acquired and reviewed in short axis, horizontal long axis and vertical long axis views. TID: 1.11 SSS: 3 SDS: 1 EF: 76 Patient tolerated test well Breast attenuation with mild decrease uptake in the apex with mild reversibility, no significant ischemia or infarction on SPECT images Normal LV size, EF 76% ANSELMO YU MD Mar 10, 2020 14:32
== END ==
LOC: CARD 08:15
PROVIDERS: ATTEND Internal Medicine Cardiovascular Disease
DX: I25.10 Atherosclerotic heart disease of native coronary artery without angina pectoris (principal)
CPT/HCPCS: 78452; 93017

== ENCOUNTER → 2020-05-13 | Outpatient (CLI) | payer MEDICARE ==
[~2020-05-13] MED LIST changes: -CATHETER FLUSH 10 ML SYR IV PRN; -ISOS30TA3 PO; +ISOS30TA82 PO; -LISI-552 PO; -LISI10TA2 PO; +LISI10TA25 PO; +LISI20TA26 PO; -REGADENOSON 0.4 MG/5 ML SYR (LEXISCAN) IV ONE
--- NOTE | 2020-05-13 10:31 | Diagnostic Imaging Report ---
EXAM: LUMBAR SPINE - 2-3 VIEWS INDICATION: Low back pain. Fall 3 weeks ago. COMPARISON: None. FINDINGS: There 5 lumbar-type vertebral bodies. Grade 1 anterolisthesis of L4 and L5. Vertebral body heights preserved. No fractures identified. Mild to moderate degenerative endplate changes are greatest at L4-L5. Visualized pelvis is intact. Moderate atherosclerotic calcifications. IMPRESSION: Mild to moderate spondylotic changes are greatest at L4-L5 where there is grade 1 anterolisthesis. No acute radiographic findings. Dictated by: Dictated on workstation # [id number]
--- NOTE | 2020-05-13 15:02 | Diagnostic Imaging Report ---
INDICATION: Left leg pain after a fall. EXAM: AP view pelvis The pelvic ring is intact. Hip joints appear normal. There is no fracture or dislocation. IMPRESSION: Unremarkable pelvis. Dictated by: Dictated on workstation # [id number]
== END ==
LOC: RAD 08:58
PROVIDERS: ATTEND Family Medicine
DX: M79.605 Pain in left leg (principal); M47.816 Spondylosis without myelopathy or radiculopathy, lumbar region; M43.16 Spondylolisthesis, lumbar region
CPT/HCPCS: 72100; 72170

== ENCOUNTER → 2020-05-26 | Outpatient (CLI) | payer MEDICARE ==
--- NOTE | 2020-05-26 16:13 | Diagnostic Imaging Report ---
INDICATION: Back pain after a fall. TECHNIQUE: Three views were obtained. FINDINGS: There is some degenerative anterolisthesis of L4 on L5. The vertebral body heights are well-maintained. There is no acute fracture. There is lower lumbar hypertrophic degenerative facet disease. IMPRESSION: Lower lumbar spondylosis; however, no acute fracture or traumatic subluxation. Dictated by: Dictated on workstation # [id number]
--- NOTE | 2020-05-26 18:05 | Diagnostic Imaging Report ---
INDICATION: Hip pain. Two views were obtained. FINDINGS: The alignment is normal. There are mild degenerative changes. There is no fracture or dislocation. Soft tissues are unremarkable. IMPRESSION: Mild degenerative changes, otherwise unremarkable. Dictated by: Dictated on workstation # [id number]
== END ==
LOC: RAD 12:29
PROVIDERS: ATTEND Family Medicine
DX: M16.12 Unilateral primary osteoarthritis, left hip (principal); M47.816 Spondylosis without myelopathy or radiculopathy, lumbar region
CPT/HCPCS: 72100; 73502

== ENCOUNTER → 2020-11-13 | Outpatient (CLI) | payer MEDICARE ==
[~2020-11-13] MED LIST changes: +ACYC-112; -ACYC800T; +HOLD METFORMIN - RECEIVED CONTRAST 20 ML VIAL IV SCH; +IOHEXOL 350 MG/ML 100 ML (OMNIPAQUE 350) VIAL IV ONE; +NS 100 ML (IVPB) BAG IV ONE
[2020-11-13 12:40] LABS: BASOPHILS # (AUTO) 0.1 10^3/uL (0.0-0.1); BASOPHILS % (AUTO) 1 % (0-10); EOSINOPHILS # (AUTO) 0.4 10^3/uL (0.0-0.3); EOSINOPHILS % (AUTO) 6 % (0-10); HEMATOCRIT 39 % (35-52); HEMOGLOBIN 11.9 g/dL (11.5-16.0); LYMPHOCYTES # (AUTO) 1.8 10^3/uL (1.0-4.0); LYMPHOCYTES % (AUTO) 23 % (12-44); MEAN CORPUSCULAR HEMOGLOBIN 28 pg (25-34); MEAN CORPUSCULAR HGB CONC 31 g/dL (32-36); MEAN CORPUSCULAR VOLUME 90 fL (80-99); MONOCYTES # (AUTO) 1.2 10^3/uL (0.0-1.0); MONOCYTES % (AUTO) 16 % (0-12); NEUTROPHILS % (AUTO) 54 % (42-75); PLATELET COUNT 182 10^3/uL (130-400); WHITE BLOOD COUNT 7.5 10^3/uL (4.3-11.0)
[2020-11-13 12:53] LABS: ALBUMIN 4.3 GM/DL (3.2-4.5); POTASSIUM 4.4 MMOL/L (3.6-5.0)
[2020-11-13 12:55] LABS: CALCIUM 9.4 MG/DL (8.5-10.1)
[2020-11-13 12:56] LABS: TOTAL PROTEIN 7.1 GM/DL (6.4-8.2)
[2020-11-13 12:58] LABS: BILIRUBIN,TOTAL 0.2 MG/DL (0.1-1.0)
[2020-11-13 12:59] LABS: CREATININE SERUM 0.82 MG/DL (0.60-1.30)
--- NOTE | 2020-11-13 14:47 | Diagnostic Imaging Report ---
INDICATION: Abdominal distention and pain x3 months, prior history of partial colectomy and hysterectomy and appendectomy. TECHNIQUE: Multiple contiguous axial images were obtained through the abdomen and pelvis after administration of intravenous contrast. Auto Exposure Controls were utilized during the CT exam to meet ALARA standards for radiation dose reduction. All CT scans use one or more of the following dose optimizing techniques: automated exposure control, MA and/or KvP adjustment based on patient size and exam type or iterative reconstruction. COMPARISON: Comparison made to the previous noncontrast CT of 08/24/2019. FINDINGS: The visualized portions of the lung bases are clear. There were no pleural fluid collections. There is no free intraperitoneal air. The liver shows no focal lesion. Gallbladder appears unremarkable. The spleen, adrenals, and pancreas are normal. Kidneys bilaterally appear normal. There is no retroperitoneal mass or adenopathy. There is no ascites or abnormal fluid collection. Visualized bowel loops demonstrate large amount of stool in the colon. There is anastomosis in the right colon. There is no overt bowel obstruction. Small bowel loops are not appreciably dilated. IMPRESSION: Evidence of previous partial colectomy as well as hysterectomy and appendectomy. There is no abdominal mass or abnormal fluid collection or abscess. There is a large amount of stool in the colon. The appearance has not changed from 08/24/2019. There is no new abnormality. Dictated by: Dictated on workstation # [id number]
== END ==
LOC: RAD 12:08
PROVIDERS: ATTEND Family Medicine
DX: R14.0 Abdominal distension (gaseous) (principal); R10.9 Unspecified abdominal pain; Z90.49 Acquired absence of other specified parts of digestive tract; Z90.710 Acquired absence of both cervix and uterus; Z90.89 Acquired absence of other organs
CPT/HCPCS: 36415; 74177; 80053; 83690; 85025